=== PATIENT | male | born 1960 | race Two or more races ===

== ENCOUNTER 2016-06-02 10:45 | Inpatient (IN) | payer MEDICARE, OTHER ==
[~2016-06-02] VITALS: Ht 167.6 cm; Wt 83.5 kg
[2016-06-02] MEDS ORDERED: IV NS 0.9% 1,000 ML BAG IV ONE (11:30)
[2016-06-02] MEDS ORDERED: MORPHINE SULFATE INJ 4 MG/ML DISP.SYRIN ONE (11:30)
[2016-06-02] MEDS ORDERED: MORPHINE SULFATE INJ 2 MG/ML DISP.SYRIN IV ONE (11:30)
[2016-06-02] MEDS ORDERED: IV NS 0.9% 1,000 ML ONE (11:30)
[2016-06-02] MEDS ORDERED: IV SET PRIMARY PUMP SET 1 EA INFUS.SET MC ONE ×3 (11:31→17:01)
[2016-06-02 11:53] LABS: BASOPHILS # (AUTO) 0.1 /CMM (0.0-0.2); BASOPHILS % (AUTO) 1.9 % (0.0-2.0); DIFF TOTAL % 100 %; EOSINOPHILS # (AUTO) 0.1 /CMM (0.0-0.7); EOSINOPHILS % (AUTO) 1.2 % (0.0-6.0); HEMATOCRIT 52 % (39-51); HEMOGLOBIN 17.3 g/dL (13.5-17.5); LYMPHOCYTES # (AUTO) 2.4 /CMM (0.8-4.8); LYMPHOCYTES % (AUTO) 31.6 % (20.0-44.0); MEAN CORPUSCULAR HEMOGLOBIN 34 PG (26.0-33.0); MEAN CORPUSCULAR HGB CONC 33 g/dl (31.0-36.0); MEAN CORPUSCULAR VOLUME 103 fL (80-96); MONOCYTES # (AUTO) 0.6 /CMM (0.1-1.30); MONOCYTES % (AUTO) 7.5 % (2.0-12.0); NEUTROPHILS # (AUTO) 4.4 /CMM (1.8-8.9); NEUTROPHILS % (AUTO) 57.8 % (43.0-81.0); PLATELET COUNT (AUTO) 174 /CMM (150-450); RED BLOOD CELL COUNT(AUTO) 5.06 MIL/uL (4.5-6.0); WHITE BLOOD COUNT (AUTO) 7.6 K/uL (4.3-11.0)
[2016-06-02 12:01] LABS: ANION GAP 12 (5-14); CARBON DIOXIDE 26 mmol/L (21-32); CHLORIDE 102 mmol/L (98-107); CREATININE 0.6 mg/dL (0.6-1.3); GFR 140 mL/min (>60); GLUCOSE 231 mg/dL (74-106); POTASSIUM 4.3 mmol/L (3.5-5.1); SODIUM SERUM 136 mmol/L (136-145); UREA NITROGEN, BLOOD 9 mg/dL (7-18)
[2016-06-02 12:06] LABS: ALANINE AMINOTRANSFERASE 39 U/L (12-78); ALBUMIN 3.2 g/dL (3.4-5.0); ASPARTATE AMINOTRANSFERASE 41 U/L (15-37); BILIRUBIN,DIRECT 0.2 mg/dL (0.0-0.2); BILIRUBIN,TOTAL 0.5 mg/dL (0.2-1.0); INDIRECT BILIRUBIN 0.3 mg/dL (0.0-1.1); TOTAL PROTEIN, SERUM 8.3 g/dL (6.4-8.2)
[2016-06-02 12:08] LABS: TROPONIN I < 0.017 ng/mL (0.00-0.056)
[2016-06-02] MEDS ORDERED: VANCOMYCIN 1 GM in IV D5W 250 ML IV ONE (12:30)
[2016-06-02] MEDS ORDERED: CEFTRIAXONE 1GM BAG (ER ONLY) 1 GM/50 ML PIGGYBACK IV ONE (12:30)
[2016-06-02] MEDS ORDERED: CEFTRIAXONE 1GM BAG (ER ONLY) 50 ML IV ONE (12:35)
[2016-06-02] MEDS ORDERED: IV SET PRIMARY 1 EA INFUS.SET MC ONE (12:35)
[2016-06-02 13:45] VITALS: BP 147/76
[2016-06-02] MEDS ORDERED: PHEN100C4 PO (13:58)
[2016-06-02] MEDS ORDERED: HYDR500C2 PO (13:58)
[2016-06-02] MEDS ORDERED: ATOR10TA PO (13:58)
[2016-06-02] MEDS ORDERED: DULO20CA PO (13:58)
[2016-06-02] MEDS ORDERED: FINA5TAB11 PO (13:58)
[2016-06-02] MEDS ORDERED: HEPA10009 SQ (13:58)
[2016-06-02] MEDS ORDERED: LIDO5JEL4 TP (13:58)
[2016-06-02] MEDS ORDERED: LEVE500T6 PO (13:58)
[2016-06-02] MEDS ORDERED: INSU100V13 SQ (13:58)
[2016-06-02] MEDS ORDERED: INSU100V3 SQ ×2 (13:58)
[2016-06-02] MEDS ORDERED: DEXT15DR6 EACHEYE (13:58)
[2016-06-02] MEDS ORDERED: METO25TA6 PO (14:07)
[2016-06-02] MEDS ORDERED: HYDR-3326 PO (14:07)
[2016-06-02] MEDS ORDERED: MULT-1119 PO (14:07)
[2016-06-02] MEDS ORDERED: GEMF600T PO (14:07)
[2016-06-02] MEDS ORDERED: GABA800T PO (14:07)
[2016-06-02] MEDS ORDERED: MELA3TAB PO (14:07)
[2016-06-02] MEDS ORDERED: OMEP20CA10 PO (14:18)
[2016-06-02] MEDS ORDERED: ACET-73 PO (14:18)
[2016-06-02] MEDS ORDERED: ASCO-340 PO (14:18)
[2016-06-02] MEDS ORDERED: HYDR-552 PO (14:18)
[2016-06-02] MEDS ORDERED: AMLO10TA4 PO (14:18)
[2016-06-02] MEDS ORDERED: OLOP5DRO9 EACHEYE (14:18)
[2016-06-02] MEDS ORDERED: CALC1TAB30 PO (14:18)
[2016-06-02 16:00] VITALS: BP 148/79
[2016-06-02] MEDS ORDERED: MAGNESIUM HYDROXIDE 30 ML UDC PO PRN (16:30)
[2016-06-02] MEDS ORDERED: ZOLPIDEM TARTRATE 5 MG TABLET PO PRN (16:30)
[2016-06-02] MEDS ORDERED: ONDANSETRON HCL/PF 4 MG/2 ML VIAL IVP PRN (16:30)
[2016-06-02] MEDS ORDERED: MAG HYDROX/AL HYDROX/SIMETH 30 ML UDC PO PRN (16:30)
[2016-06-02] MEDS ORDERED: HYDROCODONE/APAP 5/325MG 1 EACH TABLET PO PRN ×2 (16:30)
[2016-06-02] MEDS ORDERED: Z GUARD REMEDY 2 OZ OINT TP PRN (16:30)
[2016-06-02] MEDS ORDERED: GEMFIBROZIL 600 MG TABLET PO SCH (16:30)
[2016-06-02] MEDS ORDERED: Medication Not On Formulary EA (Omeprazole 20 MG) PO SCH (16:30)
[2016-06-02] MEDS ORDERED: ACETAMINOPHEN 325 MG TABLET PO PRN (16:30)
[2016-06-02] MEDS ORDERED: POLYVINYL ALCOHOL 15 ML BOTTLE EACHEYE SCH (17:00)
[2016-06-02] MEDS: METOPROLOL TARTRATE 25 MG TABLET PO SCH (17:14)
[2016-06-02] MEDS: ASCORBIC ACID 500 MG TABLET PO SCH (17:14)
[2016-06-02] MEDS: GABAPENTIN 400 MG CAPSULE PO SCH (17:15)
[2016-06-02] MEDS: PHENYTOIN EXTENDED RELEASE 100 MG CAPSULE PO SCH (17:15)
[2016-06-02] MEDS: PANTOPRAZOLE 40 MG TABLET.DR PO SCH (17:19)
[2016-06-02] MEDS: DULOXETINE HCL 20 MG CAPSULE.DR PO SCH (17:19)
[2016-06-02] MEDS: HYDROXYUREA 500 MG CAPSULE PO SCH (17:19)
[2016-06-02] MEDS: FINASTERIDE (5 MG) 5 MG TABLET PO SCH (17:19)
[2016-06-02] MEDS: ATORVASTATIN 10 MG TABLET PO SCH (17:19)
[2016-06-02] MEDS: IV NS 0.9% 1,000 ML IV PRN (17:20)
[2016-06-02] MEDS: AMLODIPINE BESYLATE 10 MG TABLET PO SCH (17:20)
[2016-06-02] MEDS ORDERED: DEXTROSE 50%-WATER 50 ML DISP.SYRIN IV PRN (17:30)
[2016-06-02] MEDS: INSULIN REGULAR, HUMAN 100 UNIT/ML 3 ML VIAL SQ PRN ×2 (18:23→23:05)
[2016-06-02] MEDS: BLOOD SUGAR DIAGNOSTIC 1 EACH STRIP IN SCH ×2 (18:28→22:57)
[2016-06-02] MEDS: POLYVINYL ALCOHOL 15 ML BOTTLE EACHEYE SCH (19:16)
[2016-06-02 20:00] VITALS: BP 108/70
[2016-06-02] MEDS ORDERED: Melatonin 3 MG PO SCH (22:00)
[2016-06-02] MEDS: OLOPATADINE HCL 0.1% OPHTH BOTTLE EACHEYE SCH (22:13)
[2016-06-02] MEDS: HYDROCODONE/APAP 5/325MG 1 EACH TABLET PO SCH (22:13)
[2016-06-02] MEDS: LEVETIRACETAM (250 MG) 250 MG TABLET PO SCH (22:13)
[2016-06-02] MEDS: HEPARIN SODIUM, PORCINE 5000 UNITS/1 ML VIAL SQ SCH (22:14)
[2016-06-02] MEDS: INSULIN DETEMIR 100 UNIT/ML CARTRIDGE SQ SCH (23:03)
[2016-06-03] VITALS (9 sets, daily range): BP systolic 112–161; BP diastolic 74–100
[2016-06-03] MEDS ORDERED: PIPERACILLIN /TAZOBACTAM 2.25 G VIAL IV ONE (00:08)
[2016-06-03] MEDS ORDERED: IV D5W 50 ML IV ONE (00:09)
[2016-06-03] MEDS ORDERED: SECONDARY IV SET 1 EA INFUS.SET MC ONE (00:12)
[2016-06-03] MEDS: PIPERACILLIN /TAZOBACTAM 4.5 G in IV D5W 50 ML IV SCH ×5 (00:22→17:47)
[2016-06-03] MEDS: *INSULIN REGULAR(HUMULIN R)HUM 100 UNIT/ML VIAL SQ PRN ×2 (00:44→21:42)
[2016-06-03] MEDS: BLOOD SUGAR DIAGNOSTIC 1 EACH STRIP IN SCH ×4 (06:08→21:46)
[2016-06-03] MEDS: LEVETIRACETAM (250 MG) 250 MG TABLET PO SCH ×3 (06:09→21:26)
[2016-06-03] MEDS: INSULIN REGULAR, HUMAN 100 UNIT/ML 3 ML VIAL SQ PRN ×3 (06:36→17:49)
[2016-06-03 07:48] LABS: BILIRUBIN,TOTAL 0.4 mg/dL (0.2-1.0); CALCIUM, SERUM 8.2 mg/dL (8.5-10.1); CREATININE 0.5 mg/dL (0.6-1.3); PHOSPHORUS 2.9 mg/dL (2.5-4.9); POTASSIUM 3.9 mmol/L (3.5-5.1); TOTAL PROTEIN, SERUM 7.8 g/dL (6.4-8.2)
[2016-06-03 08:03] LABS: BASOPHILS % (AUTO) 0.3 % (0.0-2.0); DIFF TOTAL % 100 %; EOSINOPHILS # (AUTO) 0.1 /CMM (0.0-0.7); EOSINOPHILS % (AUTO) 1.8 % (0.0-6.0); HEMATOCRIT 51 % (39-51); HEMOGLOBIN 17.3 g/dL (13.5-17.5); LYMPHOCYTES # (AUTO) 1.5 /CMM (0.8-4.8); LYMPHOCYTES % (AUTO) 24.1 % (20.0-44.0); MEAN CORPUSCULAR HEMOGLOBIN 34 PG (26.0-33.0); MEAN CORPUSCULAR HGB CONC 34 g/dl (31.0-36.0); MEAN CORPUSCULAR VOLUME 101 fL (80-96); MONOCYTES # (AUTO) 0.5 /CMM (0.1-1.30); MONOCYTES % (AUTO) 7.9 % (2.0-12.0); NEUTROPHILS # (AUTO) 4.2 /CMM (1.8-8.9); NEUTROPHILS % (AUTO) 65.9 % (43.0-81.0); PLATELET COUNT (AUTO) 165 /CMM (150-450); RED BLOOD CELL COUNT(AUTO) 5.04 MIL/uL (4.5-6.0); WHITE BLOOD COUNT (AUTO) 6.3 K/uL (4.3-11.0)
[2016-06-03] MEDS ORDERED: FENTANYL PF 250MCG/5ML AMPUL ONE (08:40)
[2016-06-03] MEDS ORDERED: ROCURONIUM BROMIDE 50 MG/5 ML ONE (08:41)
[2016-06-03] MEDS ORDERED: CT SWABBABLE VALVE TRANS SET 1 EA INFUS.SET MC ONE (08:43)
[2016-06-03] MEDS ORDERED: IV NS 0.9% 250 ML IV ONE (08:43)
[2016-06-03] MEDS ORDERED: IOHEXOL-300 100 ML VIAL IV ONE (08:44)
[2016-06-03] MEDS: HEPARIN SODIUM, PORCINE 5000 UNITS/1 ML VIAL SQ SCH ×2 (09:00→21:00)
[2016-06-03] MEDS: MULTIVITAMINS,THERAPEUTIC 1 UDTAB TABLET PO SCH (10:40)
[2016-06-03] MEDS: METOPROLOL TARTRATE 25 MG TABLET PO SCH ×2 (10:41→16:28)
[2016-06-03] MEDS: FINASTERIDE (5 MG) 5 MG TABLET PO SCH (10:41)
[2016-06-03] MEDS: ATORVASTATIN 10 MG TABLET PO SCH (10:41)
[2016-06-03] MEDS: ASCORBIC ACID 500 MG TABLET PO SCH ×2 (10:42→16:27)
[2016-06-03] MEDS: PANTOPRAZOLE 40 MG TABLET.DR PO SCH (10:42)
[2016-06-03] MEDS: CALCIUM CARB 250MG /VITAMIN D 1 UDTAB PO SCH (10:42)
[2016-06-03] MEDS: GABAPENTIN 400 MG CAPSULE PO SCH ×3 (10:42→16:27)
[2016-06-03] MEDS: HYDROXYUREA 500 MG CAPSULE PO SCH (10:42)
[2016-06-03] MEDS: DULOXETINE HCL 20 MG CAPSULE.DR PO SCH (10:42)
[2016-06-03] MEDS: HYDROCODONE/APAP 5/325MG 1 EACH TABLET PO SCH ×2 (10:43→21:27)
[2016-06-03] MEDS: PHENYTOIN EXTENDED RELEASE 100 MG CAPSULE PO SCH ×2 (10:43→16:27)
[2016-06-03] MEDS: AMLODIPINE BESYLATE 10 MG TABLET PO SCH (10:43)
[2016-06-03] MEDS: POLYVINYL ALCOHOL 15 ML BOTTLE EACHEYE SCH ×2 (11:11→16:27)
[2016-06-03] MEDS: IV NS 0.9% 1,000 ML IV PRN (16:23)
[2016-06-03] MEDS: OLOPATADINE HCL 0.1% OPHTH BOTTLE EACHEYE SCH (21:28)
[2016-06-03] MEDS: INSULIN DETEMIR 100 UNIT/ML CARTRIDGE SQ SCH (21:41)
[2016-06-04] MEDS: PIPERACILLIN /TAZOBACTAM 4.5 G in IV D5W 50 ML IV SCH ×5 (00:04→23:35)
[2016-06-04 00:06] VITALS: BP 143/75
[2016-06-04] MEDS: LEVETIRACETAM (250 MG) 250 MG TABLET PO SCH ×3 (05:06→21:42)
[2016-06-04] MEDS: IV NS 0.9% 1,000 ML IV PRN ×2 (05:07→21:49)
[2016-06-04] MEDS: INSULIN REGULAR, HUMAN 100 UNIT/ML 3 ML VIAL SQ PRN ×3 (06:26→18:34)
[2016-06-04] MEDS: BLOOD SUGAR DIAGNOSTIC 1 EACH STRIP IN SCH ×5 (06:28→21:44)
[2016-06-04 08:00] VITALS: BP 142/78
[2016-06-04] MEDS: PANTOPRAZOLE 40 MG TABLET.DR PO SCH (08:05)
[2016-06-04] MEDS: HEPARIN SODIUM, PORCINE 5000 UNITS/1 ML VIAL SQ SCH ×2 (09:00→21:00)
[2016-06-04] MEDS: ASCORBIC ACID 500 MG TABLET PO SCH ×2 (10:15→17:16)
[2016-06-04] MEDS: DULOXETINE HCL 20 MG CAPSULE.DR PO SCH (10:15)
[2016-06-04] MEDS: ATORVASTATIN 10 MG TABLET PO SCH (10:15)
[2016-06-04] MEDS: FINASTERIDE (5 MG) 5 MG TABLET PO SCH (10:15)
[2016-06-04] MEDS: MULTIVITAMINS,THERAPEUTIC 1 UDTAB TABLET PO SCH (10:15)
[2016-06-04] MEDS: CALCIUM CARB 250MG /VITAMIN D 1 UDTAB PO SCH (10:15)
[2016-06-04] MEDS: METOPROLOL TARTRATE 25 MG TABLET PO SCH ×2 (10:16→17:16)
[2016-06-04] MEDS: PHENYTOIN EXTENDED RELEASE 100 MG CAPSULE PO SCH ×2 (10:16→17:16)
[2016-06-04] MEDS: HYDROXYUREA 500 MG CAPSULE PO SCH (10:16)
[2016-06-04] MEDS: GABAPENTIN 400 MG CAPSULE PO SCH ×3 (10:16→17:16)
[2016-06-04] MEDS: POLYVINYL ALCOHOL 15 ML BOTTLE EACHEYE SCH ×2 (10:17→18:05)
[2016-06-04] MEDS: HYDROCODONE/APAP 5/325MG 1 EACH TABLET PO SCH ×2 (10:17→21:42)
[2016-06-04] MEDS: AMLODIPINE BESYLATE 10 MG TABLET PO SCH (10:17)
[2016-06-04] MEDS ORDERED: IV SET PRIMARY PUMP SET 1 EA INFUS.SET MC ONE (14:03)
[2016-06-04 16:00] VITALS: BP 119/70
[2016-06-04] MEDS ORDERED: DEXTROSE 50%-WATER 50 ML DISP.SYRIN IV PRN (17:30)
[2016-06-04] MEDS ORDERED: *INSULIN REGULAR(HUMULIN R)HUM 100 UNIT/ML VIAL SQ PRN (17:30)
[2016-06-04] MEDS: OLOPATADINE HCL 0.1% OPHTH BOTTLE EACHEYE SCH (21:44)
[2016-06-04] MEDS: INSULIN DETEMIR 100 UNIT/ML CARTRIDGE SQ SCH (21:45)
[2016-06-04 22:40] VITALS: BP 136/81
[2016-06-05] MEDS: LEVETIRACETAM (250 MG) 250 MG TABLET PO SCH (05:02)
[2016-06-05] MEDS: PIPERACILLIN /TAZOBACTAM 4.5 G in IV D5W 50 ML IV SCH (05:08)
[2016-06-05] MEDS: BLOOD SUGAR DIAGNOSTIC 1 EACH STRIP IN SCH (05:45)
[2016-06-05] MEDS: INSULIN REGULAR, HUMAN 100 UNIT/ML 3 ML VIAL SQ PRN (05:48)
[2016-06-05 08:00] VITALS: BP 155/86
[2016-06-05] MEDS: ASCORBIC ACID 500 MG TABLET PO SCH (08:14)
[2016-06-05] MEDS: PHENYTOIN EXTENDED RELEASE 100 MG CAPSULE PO SCH (08:14)
[2016-06-05] MEDS: DULOXETINE HCL 20 MG CAPSULE.DR PO SCH (08:15)
[2016-06-05] MEDS: MULTIVITAMINS,THERAPEUTIC 1 UDTAB TABLET PO SCH (08:15)
[2016-06-05] MEDS: CALCIUM CARB 250MG /VITAMIN D 1 UDTAB PO SCH (08:15)
[2016-06-05] MEDS: ATORVASTATIN 10 MG TABLET PO SCH (08:15)
[2016-06-05] MEDS: HYDROXYUREA 500 MG CAPSULE PO SCH (08:16)
[2016-06-05] MEDS: GABAPENTIN 400 MG CAPSULE PO SCH (08:16)
[2016-06-05] MEDS: HYDROCODONE/APAP 5/325MG 1 EACH TABLET PO SCH (08:16)
[2016-06-05] MEDS: FINASTERIDE (5 MG) 5 MG TABLET PO SCH (08:17)
[2016-06-05] MEDS: METOPROLOL TARTRATE 25 MG TABLET PO SCH (08:17)
[2016-06-05 08:18] VITALS: BP 138/86
[2016-06-05] MEDS: AMLODIPINE BESYLATE 10 MG TABLET PO SCH (08:18)
[2016-06-05] MEDS: PANTOPRAZOLE 40 MG TABLET.DR PO SCH (08:26)
[2016-06-05] MEDS: HEPARIN SODIUM, PORCINE 5000 UNITS/1 ML VIAL SQ SCH (08:29)
[2016-06-05] MEDS: POLYVINYL ALCOHOL 15 ML BOTTLE EACHEYE SCH (08:30)
[2016-06-06] MEDS ORDERED: PANT40TA2 PO (12:18)
[2016-06-06] MEDS ORDERED: ACET-868 PO (12:18)
[2016-06-06] MEDS ORDERED: SULF1TAB48 PO (12:18)
[2016-06-06] MEDS ORDERED: ZOLP5TAB7 PO (12:18)
== END 2016-06-05 13:40 | DRG 603 ==
LOC: ER 10:47 → MED 13:04 → TELE 16:42 → MED 22:09
PROVIDERS: ADMIT Internal Medicine; ATTEND Internal Medicine
DX: L03.116 Cellulitis of left lower limb (principal); G82.20 Paraplegia, unspecified; D68.59 Other primary thrombophilia; E87.1 Hypo-osmolality and hyponatremia; I50.32 Chronic diastolic (congestive) heart failure; E78.5 Hyperlipidemia, unspecified; N40.0 Benign prostatic hyperplasia without lower urinary tract symptoms; E11.65 Type 2 diabetes mellitus with hyperglycemia; I25.10 Atherosclerotic heart disease of native coronary artery without angina pectoris; D64.9 Anemia, unspecified; D69.2 Other nonthrombocytopenic purpura; E78.1 Pure hyperglyceridemia; G40.909 Epilepsy, unspecified, not intractable, without status epilepticus; Z86.73 Personal history of transient ischemic attack (TIA), and cerebral infarction without residual deficits; V89.2XXS Person injured in unspecified motor-vehicle accident, traffic, sequela; I11.0 Hypertensive heart disease with heart failure; R74.0 Nonspecific elevation of levels of transaminase and lactic acid dehydrogenase [LDH]; E11.51 Type 2 diabetes mellitus with diabetic peripheral angiopathy without gangrene; M24.562 Contracture, left knee; M24.571 Contracture, right ankle; M24.572 Contracture, left ankle; R23.4 Changes in skin texture; S81.002A Unspecified open wound, left knee, initial encounter; X58.XXXA Exposure to other specified factors, initial encounter; Y93.9 Activity, unspecified; Y92.89 Other specified places as the place of occurrence of the external cause; Y99.9 Unspecified external cause status; M62.562 Muscle wasting and atrophy, not elsewhere classified, left lower leg; L02.416 Cutaneous abscess of left lower limb
CPT/HCPCS: 36415; 73701-TC; 74000-TC; 80048-TC; 80053-TC; 80061-TC; 80076-TC; 82962-TC; 83690-TC; 83735-TC; 84100-TC; 84484-TC; 85025-TC; 87040-TC; 87081-TC; A4606; J0696; J1644; J1815; J2270; J2405; J2543; J3010; J3370; J7030; J7050; J7060; Q9967; Z7610

== ENCOUNTER 2016-06-06 10:58 | Inpatient (IN) | payer MEDICARE, OTHER ==
[~2016-06-06] VITALS: Ht 154.9 cm; Wt 81.2 kg
[~2016-06-06 10:58] MED LIST: ACET-73 PO; AMLO10TA4 PO; ASCO-340 PO; ATOR10TA PO; CALC1TAB30 PO; DEXT15DR6 EACHEYE; DULO20CA PO; FINA5TAB11 PO; GABA800T PO; GEMF600T PO; HEPA10009 SQ; HYDR-3326 PO; HYDR-552 PO; HYDR500C2 PO; INSU100V13 SQ; INSU100V3 SQ; LEVE500T6 PO; LIDO5JEL4 TP; MELA3TAB PO; METO25TA6 PO; MULT-1119 PO; OLOP5DRO9 EACHEYE; OMEP20CA10 PO; PHEN100C4 PO
[2016-06-06] MEDS ORDERED: LORAZEPAM 1 MG TABLET ONE (11:16)
[2016-06-06] MEDS ORDERED: ONDANSETRON 4 MG TAB.RAPDIS ONE (11:22)
[2016-06-06] MEDS ORDERED: LORAZEPAM 1 MG TABLET PO ONE (11:30)
[2016-06-06] MEDS ORDERED: ONDANSETRON 4 MG TAB.RAPDIS SL ONE (11:30)
[2016-06-06] MEDS ORDERED: ONDANSETRON HCL/PF 4 MG/2 ML VIAL ONE (11:43)
[2016-06-06] MEDS ORDERED: IV NS 0.9% 1,000 ML ONE (11:59)
[2016-06-06] MEDS ORDERED: IV SET PRIMARY 1 EA INFUS.SET MC ONE (11:59)
[2016-06-06] MEDS ORDERED: IV NS 0.9% 1,000 ML BAG IV ONE (12:00)
[2016-06-06] MEDS ORDERED: ONDANSETRON HCL/PF 4 MG/2 ML VIAL IVP ONE (12:00)
[2016-06-06 12:13] LABS: DIFF TOTAL % 100 %; EOSINOPHILS % (AUTO) 0.4 % (0.0-6.0); HEMATOCRIT 55 % (39-51); HEMOGLOBIN 18.5 g/dL (13.5-17.5); LYMPHOCYTES # (AUTO) 0.8 /CMM (0.8-4.8); LYMPHOCYTES % (AUTO) 9.4 % (20.0-44.0); MEAN CORPUSCULAR HEMOGLOBIN 34 PG (26.0-33.0); MEAN CORPUSCULAR HGB CONC 34 g/dl (31.0-36.0); MEAN CORPUSCULAR VOLUME 100 fL (80-96); MONOCYTES # (AUTO) 0.2 /CMM (0.1-1.30); MONOCYTES % (AUTO) 2.2 % (2.0-12.0); NEUTROPHILS # (AUTO) 7.8 /CMM (1.8-8.9); PLATELET COUNT (AUTO) 165 /CMM (150-450); RED BLOOD CELL COUNT(AUTO) 5.43 MIL/uL (4.5-6.0); WHITE BLOOD COUNT (AUTO) 8.9 K/uL (4.3-11.0)
[2016-06-06] MEDS ORDERED: SULF1TAB48 PO (12:18)
[2016-06-06] MEDS ORDERED: ACET-868 PO (12:18)
[2016-06-06] MEDS ORDERED: ZOLP5TAB7 PO (12:18)
[2016-06-06] MEDS ORDERED: PANT40TA2 PO (12:18)
[2016-06-06] MEDS ORDERED: LORAZEPAM INJ 2 MG/ML VIAL IV ONE (12:30)
[2016-06-06] MEDS ORDERED: LORAZEPAM INJ 2 MG/ML VIAL ONE (12:34)
[2016-06-06 12:36] LABS: TROPONIN I < 0.017 ng/mL (0.00-0.056)
[2016-06-06 12:38] LABS: ANION GAP 19 (5-14); CALCIUM, SERUM 8.9 mg/dL (8.5-10.1); CARBON DIOXIDE 21 mmol/L (21-32); CHLORIDE 99 mmol/L (98-107); CREATININE 0.7 mg/dL (0.6-1.3); GFR 117 mL/min (>60); GLUCOSE 343 mg/dL (74-106); POTASSIUM 3.6 mmol/L (3.5-5.1); SODIUM SERUM 135 mmol/L (136-145); UREA NITROGEN, BLOOD 9 mg/dL (7-18)
[2016-06-06 12:42] LABS: ALANINE AMINOTRANSFERASE 45 U/L (12-78); ALBUMIN 3.2 g/dL (3.4-5.0); ASPARTATE AMINOTRANSFERASE 49 U/L (15-37); BILIRUBIN,DIRECT 0.2 mg/dL (0.0-0.2); BILIRUBIN,TOTAL 0.5 mg/dL (0.2-1.0); INDIRECT BILIRUBIN 0.3 mg/dL (0.0-1.1); TOTAL PROTEIN, SERUM 8.5 g/dL (6.4-8.2)
[2016-06-06 14:20] VITALS: BP 138/74
[2016-06-06 16:00] VITALS: BP 141/85
[2016-06-06] MEDS ORDERED: Z GUARD REMEDY 2 OZ OINT TP PRN (16:30)
[2016-06-06] MEDS ORDERED: ACETAMINOPHEN 325 MG TABLET PO PRN (16:30)
[2016-06-06] MEDS ORDERED: HYDROCODONE/APAP 5/325MG 1 EACH TABLET PO PRN ×2 (16:30)
[2016-06-06] MEDS ORDERED: DEXTROSE 50%-WATER 50 ML DISP.SYRIN IV PRN (16:30)
[2016-06-06] MEDS ORDERED: ZOLPIDEM TARTRATE 5 MG TABLET PO PRN ×2 (16:30)
[2016-06-06] MEDS ORDERED: ONDANSETRON HCL/PF 4 MG/2 ML VIAL IVP PRN (16:30)
[2016-06-06] MEDS ORDERED: MAGNESIUM HYDROXIDE 30 ML UDC PO PRN (16:30)
[2016-06-06] MEDS ORDERED: MAG HYDROX/AL HYDROX/SIMETH 30 ML UDC PO PRN (16:30)
[2016-06-06] MEDS: METOPROLOL TARTRATE 25 MG TABLET PO SCH (17:51)
[2016-06-06] MEDS: INSULIN REGULAR, HUMAN 100 UNIT/ML 3 ML VIAL SQ PRN (17:52)
[2016-06-06] MEDS: BLOOD SUGAR DIAGNOSTIC 1 EACH STRIP VI SCH ×2 (17:53→22:03)
[2016-06-06] MEDS ORDERED: LORAZEPAM INJ 2 MG/ML VIAL IV PRN (18:00)
[2016-06-06] MEDS: HYDROCODONE/APAP 5/325MG 1 EACH TABLET PO PRN (18:19)
[2016-06-06 20:00] VITALS: BP 126/80
[2016-06-06] MEDS: HEPARIN SODIUM, PORCINE 5000 UNITS/1 ML VIAL SQ SCH (21:28)
[2016-06-06] MEDS: POLYVINYL ALCOHOL 15 ML BOTTLE OP SCH (21:29)
[2016-06-06] MEDS: LEVETIRACETAM (250 MG) 250 MG TABLET PO SCH (21:29)
[2016-06-06] MEDS: GABAPENTIN 400 MG CAPSULE PO SCH (21:29)
[2016-06-06] MEDS: INSULIN DETEMIR 100 UNIT/ML CARTRIDGE SQ SCH (21:58)
[2016-06-06] MEDS ORDERED: INSULIN GLARGINE HUM REC ANLOG 54 UNIT SQ SCH (22:00)
[2016-06-07] VITALS: BP 114/76
[2016-06-07] MEDS: HYDROCODONE/APAP 5/325MG 1 EACH TABLET PO PRN (03:44)
[2016-06-07 04:00] VITALS: BP 142/79
[2016-06-07] MEDS: LEVETIRACETAM (250 MG) 250 MG TABLET PO SCH ×3 (05:19→21:24)
[2016-06-07] MEDS: GABAPENTIN 400 MG CAPSULE PO SCH ×3 (05:19→21:24)
[2016-06-07] MEDS: INSULIN REGULAR, HUMAN 100 UNIT/ML 3 ML VIAL SQ PRN ×3 (05:56→17:33)
[2016-06-07] MEDS: BLOOD SUGAR DIAGNOSTIC 1 EACH STRIP VI SCH ×4 (06:18→21:23)
[2016-06-07 08:00] VITALS: BP 135/69
[2016-06-07] MEDS: MULTIVITAMINS,THERAPEUTIC 1 UDTAB TABLET PO SCH (08:54)
[2016-06-07] MEDS: HYDROXYUREA 500 MG CAPSULE PO SCH (08:54)
[2016-06-07] MEDS: ASCORBIC ACID 500 MG TABLET PO SCH ×2 (08:54→16:43)
[2016-06-07] MEDS: PANTOPRAZOLE 40 MG TABLET.DR PO SCH (08:55)
[2016-06-07] MEDS: ATORVASTATIN 10 MG TABLET PO SCH (08:55)
[2016-06-07] MEDS: FINASTERIDE (5 MG) 5 MG TABLET PO SCH (08:55)
[2016-06-07] MEDS: METOPROLOL TARTRATE 25 MG TABLET PO SCH ×2 (08:55→16:43)
[2016-06-07] MEDS: DULOXETINE HCL 20 MG CAPSULE.DR PO SCH (08:55)
[2016-06-07] MEDS: AMLODIPINE BESYLATE 10 MG TABLET PO SCH (08:55)
[2016-06-07] MEDS ORDERED: PANTOPRAZOLE 40 MG TABLET.DR PO SCH (09:00)
[2016-06-07] MEDS: POLYVINYL ALCOHOL 15 ML BOTTLE OP SCH ×2 (09:01→16:43)
[2016-06-07] MEDS: HEPARIN SODIUM, PORCINE 5000 UNITS/1 ML VIAL SQ SCH ×2 (09:01→21:25)
[2016-06-07 10:50] LABS: BASOPHILS % (AUTO) 0.3 % (0.0-2.0); DIFF TOTAL % 100 %; EOSINOPHILS # (AUTO) 0.1 /CMM (0.0-0.7); EOSINOPHILS % (AUTO) 1.5 % (0.0-6.0); HEMATOCRIT 49 % (39-51); HEMOGLOBIN 16.8 g/dL (13.5-17.5); LYMPHOCYTES # (AUTO) 1.7 /CMM (0.8-4.8); LYMPHOCYTES % (AUTO) 20.6 % (20.0-44.0); MEAN CORPUSCULAR HEMOGLOBIN 34 PG (26.0-33.0); MEAN CORPUSCULAR HGB CONC 34 g/dl (31.0-36.0); MEAN CORPUSCULAR VOLUME 101 fL (80-96); MONOCYTES # (AUTO) 0.6 /CMM (0.1-1.30); MONOCYTES % (AUTO) 7.6 % (2.0-12.0); NEUTROPHILS # (AUTO) 5.9 /CMM (1.8-8.9); PLATELET COUNT (AUTO) 157 /CMM (150-450); RED BLOOD CELL COUNT(AUTO) 4.89 MIL/uL (4.5-6.0); WHITE BLOOD COUNT (AUTO) 8.4 K/uL (4.3-11.0)
[2016-06-07 11:03] LABS: CALCIUM, SERUM 8.6 mg/dL (8.5-10.1); CREATININE 0.6 mg/dL (0.6-1.3); POTASSIUM 3.4 mmol/L (3.5-5.1)
[2016-06-07] MEDS: PHENYTOIN EXTENDED RELEASE 100 MG CAPSULE PO SCH ×2 (15:26→21:24)
[2016-06-07 16:00] VITALS: BP 134/72
[2016-06-07] MEDS ORDERED: POTASSIUM CHLORIDE 20 MEQ TAB.PRT.SR PO ONE (16:00)
[2016-06-07] MEDS: Z GUARD REMEDY 2 OZ OINT TP SCH (16:44)
[2016-06-07] MEDS ORDERED: phenytoin SODIUM IV 1,000 MG in IV NS 0.9% 100 ML IV STA (18:06)
[2016-06-07] MEDS ORDERED: IV SET PRIMARY PUMP SET 1 EA INFUS.SET MC ONE ×2 (18:31→19:29)
[2016-06-07] MEDS ORDERED: SECONDARY IV SET 1 EA INFUS.SET MC ONE (18:34)
[2016-06-07] MEDS ORDERED: IV NS 0.9% 0 ML IV ONE (18:34)
[2016-06-07] MEDS ORDERED: IV NS 0.9% 250 ML IV ONE (19:15)
[2016-06-07 20:00] VITALS: BP 127/69
[2016-06-07 20:02] VITALS: BP 127/69
[2016-06-07] MEDS ORDERED: PHENYTOIN EXTENDED RELEASE 100 MG CAPSULE PO ONE (20:30)
[2016-06-07] MEDS: *INSULIN REGULAR(HUMULIN R)HUM 100 UNIT/ML VIAL SQ PRN (21:37)
[2016-06-07] MEDS: INSULIN DETEMIR 100 UNIT/ML CARTRIDGE SQ SCH (21:38)
[2016-06-08] MEDS: LEVETIRACETAM (250 MG) 250 MG TABLET PO SCH ×3 (04:47→21:14)
[2016-06-08] MEDS: GABAPENTIN 400 MG CAPSULE PO SCH ×3 (04:47→21:14)
[2016-06-08] MEDS: BLOOD SUGAR DIAGNOSTIC 1 EACH STRIP VI SCH ×4 (06:26→21:25)
[2016-06-08] MEDS: INSULIN REGULAR, HUMAN 100 UNIT/ML 3 ML VIAL SQ PRN ×2 (06:33→12:11)
[2016-06-08 08:00] VITALS: BP 137/83
[2016-06-08 08:08] LABS: CALCIUM, SERUM 8.3 mg/dL (8.5-10.1); CREATININE 0.5 mg/dL (0.6-1.3); POTASSIUM 3.7 mmol/L (3.5-5.1)
[2016-06-08] MEDS: PANTOPRAZOLE 40 MG TABLET.DR PO SCH (08:14)
[2016-06-08] MEDS: POLYVINYL ALCOHOL 15 ML BOTTLE OP SCH ×2 (08:14→16:56)
[2016-06-08] MEDS: HYDROXYUREA 500 MG CAPSULE PO SCH (08:14)
[2016-06-08] MEDS: FINASTERIDE (5 MG) 5 MG TABLET PO SCH (08:14)
[2016-06-08] MEDS: PHENYTOIN EXTENDED RELEASE 100 MG CAPSULE PO SCH ×2 (08:14→21:14)
[2016-06-08] MEDS: MULTIVITAMINS,THERAPEUTIC 1 UDTAB TABLET PO SCH (08:15)
[2016-06-08] MEDS: METOPROLOL TARTRATE 25 MG TABLET PO SCH ×2 (08:15→16:55)
[2016-06-08] MEDS: ASCORBIC ACID 500 MG TABLET PO SCH ×2 (08:15→16:55)
[2016-06-08] MEDS: AMLODIPINE BESYLATE 10 MG TABLET PO SCH (08:16)
[2016-06-08] MEDS: DULOXETINE HCL 20 MG CAPSULE.DR PO SCH (08:16)
[2016-06-08] MEDS: HEPARIN SODIUM, PORCINE 5000 UNITS/1 ML VIAL SQ SCH ×2 (08:17→21:15)
[2016-06-08] MEDS: ATORVASTATIN 10 MG TABLET PO SCH (08:17)
[2016-06-08] MEDS: Z GUARD REMEDY 2 OZ OINT TP SCH ×2 (08:18→16:55)
[2016-06-08 16:00] VITALS: BP 148/77
[2016-06-08] MEDS: INSULIN REGULAR, HUMAN 100 UNIT/ML 3 ML VIAL SQ SCH (16:57)
[2016-06-08 20:00] VITALS: BP 142/87
[2016-06-08 20:02] VITALS: BP 142/87
[2016-06-08] MEDS: INSULIN DETEMIR 100 UNIT/ML CARTRIDGE SQ SCH (21:30)
[2016-06-08] MEDS: *INSULIN REGULAR(HUMULIN R)HUM 100 UNIT/ML VIAL SQ PRN (21:31)
[2016-06-09] MEDS: GABAPENTIN 400 MG CAPSULE PO SCH ×3 (04:21→22:13)
[2016-06-09] MEDS: LEVETIRACETAM (250 MG) 250 MG TABLET PO SCH ×3 (04:21→22:13)
[2016-06-09] MEDS: INSULIN REGULAR, HUMAN 100 UNIT/ML 3 ML VIAL SQ PRN ×3 (06:28→17:40)
[2016-06-09] MEDS: INSULIN REGULAR, HUMAN 100 UNIT/ML 3 ML VIAL SQ SCH ×3 (07:30→17:42)
[2016-06-09 08:00] VITALS: BP 143/87
[2016-06-09] MEDS: ATORVASTATIN 10 MG TABLET PO SCH (09:29)
[2016-06-09] MEDS: PHENYTOIN EXTENDED RELEASE 100 MG CAPSULE PO SCH ×2 (09:29→22:13)
[2016-06-09] MEDS: ASCORBIC ACID 500 MG TABLET PO SCH ×2 (09:29→17:52)
[2016-06-09] MEDS: METOPROLOL TARTRATE 25 MG TABLET PO SCH ×2 (09:30→17:53)
[2016-06-09] MEDS: PANTOPRAZOLE 40 MG TABLET.DR PO SCH (09:30)
[2016-06-09] MEDS: FINASTERIDE (5 MG) 5 MG TABLET PO SCH (09:31)
[2016-06-09] MEDS: HYDROXYUREA 500 MG CAPSULE PO SCH (09:31)
[2016-06-09] MEDS: MULTIVITAMINS,THERAPEUTIC 1 UDTAB TABLET PO SCH (09:31)
[2016-06-09] MEDS: DULOXETINE HCL 20 MG CAPSULE.DR PO SCH (09:31)
[2016-06-09] MEDS: AMLODIPINE BESYLATE 10 MG TABLET PO SCH (09:31)
[2016-06-09] MEDS: HEPARIN SODIUM, PORCINE 5000 UNITS/1 ML VIAL SQ SCH ×2 (09:32→21:00)
[2016-06-09] MEDS: BLOOD SUGAR DIAGNOSTIC 1 EACH STRIP VI SCH ×6 (09:36→22:38)
[2016-06-09] MEDS: Z GUARD REMEDY 2 OZ OINT TP SCH ×2 (09:53→17:55)
[2016-06-09] MEDS: POLYVINYL ALCOHOL 15 ML BOTTLE OP SCH ×2 (09:53→17:54)
[2016-06-09 11:24] LABS: CALCIUM, SERUM 8.7 mg/dL (8.5-10.1); CREATININE 0.6 mg/dL (0.6-1.3); POTASSIUM 3.8 mmol/L (3.5-5.1)
[2016-06-09] MEDS ORDERED: INSU100V3 SQ (15:46)
[2016-06-09] MEDS ORDERED: PHEN100C4 PO (15:46)
[2016-06-09 16:00] VITALS: BP 145/78
[2016-06-09 20:00] VITALS: BP 148/89
[2016-06-09] MEDS: HYDROCODONE/APAP 5/325MG 1 EACH TABLET PO PRN (22:13)
[2016-06-09] MEDS: INSULIN DETEMIR 100 UNIT/ML CARTRIDGE SQ SCH (22:39)
== END 2016-06-09 23:25 | DRG 101 ==
LOC: ER 10:59 → TELE 14:27 → MED 06-07 09:51
PROVIDERS: ADMIT Internal Medicine; ATTEND Internal Medicine
DX: G40.909 Epilepsy, unspecified, not intractable, without status epilepticus (principal); G82.20 Paraplegia, unspecified; D68.59 Other primary thrombophilia; E87.1 Hypo-osmolality and hyponatremia; L03.116 Cellulitis of left lower limb; G91.9 Hydrocephalus, unspecified; I25.10 Atherosclerotic heart disease of native coronary artery without angina pectoris; E11.65 Type 2 diabetes mellitus with hyperglycemia; Z86.73 Personal history of transient ischemic attack (TIA), and cerebral infarction without residual deficits; I50.9 Heart failure, unspecified; E78.5 Hyperlipidemia, unspecified; Z98.2 Presence of cerebrospinal fluid drainage device; N40.0 Benign prostatic hyperplasia without lower urinary tract symptoms; Z90.49 Acquired absence of other specified parts of digestive tract; D69.2 Other nonthrombocytopenic purpura; E66.9 Obesity, unspecified; G93.89 Other specified disorders of brain; I73.9 Peripheral vascular disease, unspecified; M24.562 Contracture, left knee
CPT/HCPCS: 36415; 70450-TC; 71010-TC; 80048-TC; 80061-TC; 80076-TC; 80185-TC; 82962-TC; 83690-TC; 83735-TC; 84100-TC; 84484-TC; 85025-TC; 87081-TC; 94799-TC; A4606; A6403; A6407; J1165; J1644; J1815; J2060; J2405; J7030; J7050; Q0162; Z7610

== ENCOUNTER 2017-03-11 11:42 | Inpatient (IN) | payer MEDICARE, OTHER ==
[~2017-03-11] VITALS: Ht 165.1 cm; Wt 79.4 kg
[~2017-03-11 11:42] MED LIST changes: -ACET-73 PO; +ACET-868 PO; -CALC1TAB30 PO; -GEMF600T PO; -INSU100V13 SQ; +INSU100V7 SQ; -LEVE500T6 PO; +LEVE500T9 PO; -LIDO5JEL4 TP; -MELA3TAB PO; -OLOP5DRO9 EACHEYE; -OMEP20CA10 PO; +PANT40TA2 PO; +SULF1TAB48 PO; +ZOLP5TAB7 PO
--- NOTE | 2017-03-11 11:50 | NUR ---
BBPA FROM [employer]: MORE LETHARGIC OVER PAST 2 DAYS. PATIENT A/OX 4. BREATHING EVEN AND UNLABORED. NO SOB. VITALS STABLE. SAFETY AND COMFORT MEASURSE IN PLACE. AWAITING MD ORDERS.
[2017-03-11] MEDS ORDERED: IV NS 0.9% 1,000 ML BAG IV ONE (12:00)
--- NOTE | 2017-03-11 12:05 | NUR ---
NEW IV STARTED RIGHT HAND, 18 G. BLOOD DRAWN AND SENT TO LAB.
[2017-03-11 12:30] LABS: BASOPHILS # (AUTO) 0.1 /CMM (0.0-0.2); BASOPHILS % (AUTO) 0.6 % (0.0-2.0); CALCIUM, SERUM 8.9 mg/dL (8.5-10.1); CARBON DIOXIDE 28 mmol/L (21-32); CHLORIDE 102 mmol/L (98-107); CREATININE 0.5 mg/dL (0.6-1.3); EOSINOPHILS # (AUTO) 0.2 /CMM (0.0-0.7); EOSINOPHILS % (AUTO) 1.5 % (0.0-6.0); GLUCOSE 144 mg/dL (74-106); HEMATOCRIT 54 % (39-51); HEMOGLOBIN 18.2 g/dL (13.5-17.5); LYMPHOCYTES # (AUTO) 2.2 /CMM (0.8-4.8); LYMPHOCYTES % (AUTO) 18.6 % (20.0-44.0); MEAN CORPUSCULAR HEMOGLOBIN 34 PG (26.0-33.0); MEAN CORPUSCULAR HGB CONC 34 g/dl (31.0-36.0); MEAN CORPUSCULAR VOLUME 99 fL (80-96); MONOCYTES # (AUTO) 0.8 /CMM (0.1-1.30); MONOCYTES % (AUTO) 6.7 % (2.0-12.0); NEUTROPHILS # (AUTO) 8.5 /CMM (1.8-8.9); NEUTROPHILS % (AUTO) 72.6 % (43.0-81.0); PLATELET COUNT (AUTO) 165 /CMM (150-450); POTASSIUM 3.8 mmol/L (3.5-5.1); RDW COEFFICIENT OF VARIATION 13.4 (11.5-15.0); RED BLOOD CELL COUNT(AUTO) 5.44 MIL/uL (4.5-6.0); SODIUM SERUM 137 mmol/L (136-145); UREA NITROGEN, BLOOD 9 mg/dL (7-18); WHITE BLOOD COUNT (AUTO) 11.8 K/uL (4.3-11.0)
[2017-03-11 12:35] LABS: ALANINE AMINOTRANSFERASE 19 U/L (12-78); ALBUMIN 3.1 g/dL (3.4-5.0); ALKALINE PHOSPHATASE 138 U/L (46-116); ASPARTATE AMINOTRANSFERASE 18 U/L (15-37); BILIRUBIN,DIRECT 0.1 mg/dL (0.0-0.2); BILIRUBIN,TOTAL 0.4 mg/dL (0.2-1.0); TOTAL PROTEIN, SERUM 8.1 g/dL (6.4-8.2)
[2017-03-11 12:37] LABS: TROPONIN I < 0.017 ng/mL (0.00-0.056)
--- NOTE | 2017-03-11 13:12 | NUR ---
REPORT GIVEN TO RNSHRUTI FOR ADMISSION.
[2017-03-11] MEDS ORDERED: PHEN100C4 PO (13:17)
[2017-03-11] MEDS ORDERED: INSU100V3 SQ (13:17)
[2017-03-11] MEDS ORDERED: BISA10SU8 RC (13:17)
[2017-03-11] MEDS ORDERED: BENEFIBER PO (13:17)
[2017-03-11] MEDS ORDERED: MELA5TAB PO (13:17)
[2017-03-11] MEDS ORDERED: ARGI1POW13 PO (13:17)
[2017-03-11] MEDS ORDERED: MAGN400O6 PO (13:17)
[2017-03-11] MEDS ORDERED: BLOO-668 IN (13:17)
[2017-03-11] MEDS ORDERED: MULT1TAB11 PO (13:17)
[2017-03-11] MEDS ORDERED: DIPH25CA6 PO (13:17)
[2017-03-11] MEDS ORDERED: POLY15DR40 EACHEYE (13:17)
[2017-03-11] MEDS ORDERED: NA P133E RC (13:17)
[2017-03-11] MEDS ORDERED: OXYC-128 PO ×2 (13:27)
--- NOTE | 2017-03-11 13:31 | NUR ---
CALLED [employer], MANAGER TALENT ACQUISITION WAS PAGED.
--- NOTE | 2017-03-11 13:50 | NUR ---
PATIENT TAKEN TO CT VIA STRETCHER .
[2017-03-11] MEDS ORDERED: BISACODYL SUPP (10 MG) 10 MG/SUPP.RECT SUPP.RECT RC PRN (14:30)
[2017-03-11] MEDS ORDERED: diphenhydrAMINE HCL 25 MG CAPSULE PO PRN (14:30)
[2017-03-11] MEDS ORDERED: MAGNESIUM HYDROXIDE 30 ML UDC PO PRN ×2 (14:30)
[2017-03-11] MEDS ORDERED: Medication Not On Formulary EA (Melatonin 10 MG) PO PRN (14:30)
[2017-03-11] MEDS ORDERED: ACETAMINOPHEN 325 MG TABLET PO PRN ×2 (14:30)
[2017-03-11] MEDS ORDERED: Z GUARD REMEDY 2 OZ OINT TP PRN (14:30)
[2017-03-11] MEDS ORDERED: MAG HYDROX/AL HYDROX/SIMETH 30 ML UDC PO PRN (14:30)
[2017-03-11] MEDS ORDERED: ZOLPIDEM TARTRATE 5 MG TABLET PO PRN (14:30)
[2017-03-11] MEDS ORDERED: ONDANSETRON HCL/PF 4 MG/2 ML VIAL IVP PRN (14:30)
--- NOTE | 2017-03-11 14:38 | NUR ---
PATIENT TRANSFERRED TO [facility] FOR ADMISSION VIA STRETCHER. RN, SHRUTI/MIKE TO PROVIDE RACHANA.
[2017-03-11 14:43] LABS: BAND % (MANUAL) 2 % (0.0-5.0); EOSINOPHILS % (MANUAL) 4 % (0-4); LYMPHOCYTES % (MANUAL) 22 % (16-48); MONOCYTES % (MANUAL) 4 % (0-11.0); NEUTROPHILS % (MANUAL) 68 (42-76)
[2017-03-11 15:00] VITALS: BP 134/89
--- NOTE | 2017-03-11 15:00 | NUR ---
RECEIVED PT FROM ER. IN NO APPARENT DISTRESS. BEDSIDE RAILS ARE LOCKED AND LOWERED. IV IS INTACT AND PATENT. WILL CONTINUE TO MONITOR.
[2017-03-11] MEDS: INSULIN REGULAR, HUMAN 100 UNIT/ML 3 ML VIAL SQ SCH (16:44)
[2017-03-11] MEDS: BLOOD SUGAR DIAGNOSTIC 1 EACH STRIP IN SCH ×2 (16:45→21:44)
[2017-03-11] MEDS: LEVETIRACETAM (250 MG) 250 MG TABLET PO SCH ×2 (16:45→21:43)
[2017-03-11] MEDS: GABAPENTIN 400 MG CAPSULE PO SCH ×2 (16:46→21:43)
[2017-03-11] MEDS: IV 1/2NS 1000 ML 1,000 ML IV PRN (16:52)
[2017-03-11] MEDS ORDERED: Medication Not On Formulary EA (Arginine/Ascorbate Sod/Vite AC (Arginaid Powder) 1 EACH) PO SCH (17:00)
[2017-03-11] MEDS: POLYVINYL ALCOHOL 15 ML BOTTLE EACHEYE SCH (17:13)
[2017-03-11] MEDS: BENEFIBER 4 GM 1 EA PACKET PO SCH (17:14)
[2017-03-11] MEDS: METOPROLOL TARTRATE 25 MG TABLET PO SCH (17:14)
[2017-03-11] MEDS: ASCORBIC ACID 500 MG TABLET PO SCH (17:14)
--- NOTE | 2017-03-11 18:48 | NUR ---
MS RN CLOSING NOTES PT IS AWAKE AND ALERT. PT IS RESTING IN BED. BEDSIDE RAILS ARE UP X2. BED IS LOCKED AND LOWERED. WILL ENDORSE CARE TO CARGOMAN NURSE FOR RACHANA.
--- NOTE | 2017-03-11 19:35 | NUR ---
MS/RN NOTES RECEIVED PT. SITTING UP IN BED. AWAKE, ALERT AND ORIENTED X1-2. BREATHING EVEN AND UNLABORED ON ROOM AIR. NO SOB, RESPIRATORY DISTRESS OR COMPLAINTS OF PAIN NOTED AT THIS TIME. PT. WITH RIGHT FOREARM 18 GAUGE IV SALINE LOCK PRESENT. PT. IV INFILTRATED. WILL D/C IV ACCESS AND ATTEMPT TO INSERT NEW IV ACCESS. PT. WITH FAMILY MEMBER PRESENT AT BEDSIDE. BED LOCKED AND IN LOWEST POSITION, SIDE RAILS UP X3, BED ALARM ON, CALL LIGHT WITHIN REACH, WILL CONTINUE TO MONITOR.
[2017-03-11 20:00] VITALS: BP 142/74
[2017-03-11] MEDS: PHENYTOIN EXTENDED RELEASE 100 MG CAPSULE PO SCH (21:43)
[2017-03-11] MEDS: ATORVASTATIN 10 MG TABLET PO SCH (21:43)
[2017-03-11] MEDS: HEPARIN SODIUM, PORCINE 5000 UNITS/1 ML VIAL SQ SCH (21:45)
[2017-03-11] MEDS: INSULIN DETEMIR 100 UNIT/ML CARTRIDGE SQ SCH (21:46)
[2017-03-11] MEDS ORDERED: INSULIN GLARGINE HUM REC ANLOG SQ SCH (22:00)
[2017-03-11] MEDS: HYDROCODONE/APAP 5/325MG 1 EACH TABLET PO PRN (22:22)
--- NOTE | 2017-03-11 23:42 | NUR ---
MS/RN NOTES NOTIFIED [facility] TEACHER DR. HORNER PT. PREVIOUS IV INFILTRATED. PREVIOUS ATTEMPTS MADE TO INSERT IV ACCESS WERE UNSUCCESSFUL PT. IS A HARD STICK. PER DR. HORNER NEW ORDER: MIDLINE INSERTION. WILL CARRY OUT ORDER. WILL CONTINUE TO MONITOR.
--- NOTE | 2017-03-11 23:48 | NUR ---
MS/RN NOTES MIDLINE NURSE CARLA PRESENT AT BEDSIDE.
--- NOTE | 2017-03-11 23:55 | NUR ---
MS/RN NOTES PT. NOW WITH RIGHT UPPER ARM #18 MIDLINE PRESENT, PATENT AND INTACT ADMINISTERING TO PT. 1/2 NS @ 75 ML/HR.
[2017-03-12] MEDS: LEVETIRACETAM (250 MG) 250 MG TABLET PO SCH ×3 (06:09→21:07)
--- NOTE | 2017-03-12 06:18 | NUR ---
MS/RN NOTES PT. IS LYING IN BED RESTING. BREATHING EVEN AND UNLABORED ON ROOM AIR. NO SOB, RESPIRATORY DISTRESS OR COMPLAINTS OF PAIN NOTED AT THIS TIME. NO S/S OF HYPO/HYPERGLYCEMIA NOTED AT THIS TIME AND THROUGHOUT SHIFT. PT. WITH RIGHT UPPER ARM MIDLINE #18 PRESENT, PATENT AND INTACT, ADMINISTERING TO PT. 1/2 NS @ 75 ML/HR. ALL PT. NEEDS MET. ALL DUE MEDICATIONS GIVEN. PT. OFFLOADED, TURNED AND REPOSITIONED TOLERATED. BED LOCKED AND IN LOWEST POSITION, SIDE RAILS UP X3, BED ALARM ON, CALL LIGHT WITHIN REACH, WILL ENDORSE TO DAYSHIFT NURSE FOR CONTINUITY OF CARE.
[2017-03-12] MEDS: BLOOD SUGAR DIAGNOSTIC 1 EACH STRIP IN SCH ×4 (06:44→21:10)
--- NOTE | 2017-03-12 07:20 | NUR ---
MS RN OPENING NOTES RECEIVED PT FROM NIGHTSHIFT NURSE IN STABLE CONDITION. PT IS A/O X2. NO SOB OR SIGNS OF DISTRESS NOTED. BREATHING IS EVEN AND UNLABORED.PT DENIES ANY PAIN AT THIS TIME. PT IS ON ROOM AIR AND SATING WELL AT 96%. RIGHT UPPER ARM MIDLINE NOTED AND INFUSING 1/2 NS @ 75ML/HR. PT IS TOLERATING INFUSION WELL. NO REDNESS OR SIGNS OF INFILTRATION NOTED. BED IN LOW LOCKED POSITION, SIDE RAILS UP X3, CALL LIGHT WITHIN REACH. WILL CONTINUE TO MONITOR
[2017-03-12 07:47] LABS: BASOPHILS % (AUTO) 0.4 % (0.0-2.0); EOSINOPHILS # (AUTO) 0.2 /CMM (0.0-0.7); EOSINOPHILS % (AUTO) 1.5 % (0.0-6.0); HEMATOCRIT 54 % (39-51); HEMOGLOBIN 18.1 g/dL (13.5-17.5); LYMPHOCYTES # (AUTO) 2.1 /CMM (0.8-4.8); MEAN CORPUSCULAR HEMOGLOBIN 34 PG (26.0-33.0); MEAN CORPUSCULAR HGB CONC 34 g/dl (31.0-36.0); MEAN CORPUSCULAR VOLUME 100 fL (80-96); MONOCYTES # (AUTO) 0.7 /CMM (0.1-1.30); NEUTROPHILS # (AUTO) 7.1 /CMM (1.8-8.9); NEUTROPHILS % (AUTO) 70.1 % (43.0-81.0); PLATELET COUNT (AUTO) 168 /CMM (150-450); RDW COEFFICIENT OF VARIATION 14.3 (11.5-15.0); RED BLOOD CELL COUNT(AUTO) 5.39 MIL/uL (4.5-6.0); WHITE BLOOD COUNT (AUTO) 10.2 K/uL (4.3-11.0)
[2017-03-12 08:00] VITALS: BP 133/79
[2017-03-12 08:12] LABS: THYROID STIMULATING HORMONE 1.701 uIU/mL (0.358-3.74)
[2017-03-12 08:16] LABS: ALBUMIN 2.9 g/dL (3.4-5.0); BILIRUBIN,TOTAL 0.2 mg/dL (0.2-1.0); CALCIUM, SERUM 8.1 mg/dL (8.5-10.1); CREATININE 0.5 mg/dL (0.6-1.3); MAGNESIUM 1.8 mg/dL (1.8-2.4); PHOSPHORUS 3.6 mg/dL (2.5-4.9); POTASSIUM 3.4 mmol/L (3.5-5.1); TOTAL PROTEIN, SERUM 7.7 g/dL (6.4-8.2)
[2017-03-12] MEDS: PANTOPRAZOLE 40 MG TABLET.DR PO SCH (08:47)
[2017-03-12] MEDS: INSULIN REGULAR, HUMAN 100 UNIT/ML 3 ML VIAL SQ SCH ×3 (08:49→17:33)
[2017-03-12] MEDS: FINASTERIDE (5 MG) 5 MG TABLET PO SCH (09:57)
[2017-03-12] MEDS: ASCORBIC ACID 500 MG TABLET PO SCH ×2 (09:58→17:28)
[2017-03-12] MEDS: PHENYTOIN EXTENDED RELEASE 100 MG CAPSULE PO SCH ×2 (09:58→21:07)
[2017-03-12] MEDS: DULOXETINE HCL 20 MG CAPSULE.DR PO SCH (09:58)
[2017-03-12] MEDS: MULTIVIT, IRON, MIN NO. 8, FA 1 TAB PO SCH (09:58)
[2017-03-12] MEDS: GABAPENTIN 400 MG CAPSULE PO SCH ×3 (09:58→21:07)
[2017-03-12] MEDS: HEPARIN SODIUM, PORCINE 5000 UNITS/1 ML VIAL SQ SCH ×2 (09:59→21:10)
[2017-03-12] MEDS: AMLODIPINE BESYLATE 10 MG TABLET PO SCH (10:00)
[2017-03-12] MEDS: BENEFIBER 4 GM 1 EA PACKET PO SCH ×3 (10:01→17:28)
[2017-03-12] MEDS: POLYVINYL ALCOHOL 15 ML BOTTLE EACHEYE SCH ×2 (10:01→17:29)
[2017-03-12] MEDS: METOPROLOL TARTRATE 25 MG TABLET PO SCH ×2 (10:01→17:28)
[2017-03-12] MEDS ORDERED: POTASSIUM CHLORIDE 20 MEQ TAB.PRT.SR PO SCH (11:30)
[2017-03-12] MEDS: HYDROXYUREA 500 MG CAPSULE PO SCH (11:50)
[2017-03-12] MEDS: IV 1/2NS 1000 ML 1,000 ML IV PRN ×2 (12:21→22:57)
--- NOTE | 2017-03-12 14:59 | NUR ---
MS RN NOTES PT'S DPOA (TELLO) BROUGHT IN AN UPDATED POLST OF THE PT'S WISHES. DR DSOUZA WAS INFORMED AND GAVE CONSENT TO INPUT A DNR ORDER. ROSS THE CHARGE WAS WITNESS TO THIS. WILL INPUT ORDER
[2017-03-12 16:18] VITALS: BP 126/89
[2017-03-12] MEDS: HYDROCODONE/APAP 5/325MG 1 EACH TABLET PO PRN (17:30)
--- NOTE | 2017-03-12 19:00 | NUR ---
MS RN OPENING NOTES PATIENT RESTING IN BED A/O X 1, NO ACUTE DISTRESS NOTED. BREATHING EVEN AND UNLABORED, NO SOB NOTED. SAFETY MEASURES IN PLACE, BED LOCKED AND IN LOWEST POSITION, CALL LIGHT IN REACH. WILL CONTINUE TO MONITOR.
--- NOTE | 2017-03-12 19:06 | NUR ---
MS RN CLOSING NOTES PT REMAINS STABLE. NO ACUTE CHANGES IN CONDITION DURING SHIFT. ALL NEEDS WERE MET DURING SHIFT AND ORDERS CARRIED OUT ACCORDINGLY. ALL SAFETY MEASURES IN PLACE. WILL ENDORSE TO NIGHTSHIFT NURSE FOR RACHANA
[2017-03-12 19:11] LABS: APPEARANCE,URINE CLEAR (CLEAR); BILIRUBIN,URINE NEGATIVE (NEGATIVE); BLOOD, URINE NEGATIVE Ery/uL (NEGATIVE); COLOR,URINE YELLOW (YELLOW); KETONES,URINE NEGATIVE (NEGATIVE); LEUKOCYTE ESTERASE ,URINE TRACE (NEGATIVE); NITRITE, URINE NEGATIVE (NEGATIVE); PH,URINE 6.5 (5.0-8.0); PROTEIN,URINE NEGATIVE (NEGATIVE); UGLUCOSE NEGATIVE (NEGATIVE); UROBILINOGEN,URINE 0.2 EU/dL (0.2)
[2017-03-12 19:14] LABS: BACTERIA,URINE Few /HPF (None Seen); RBC,URINE 0-2 /HPF (0-2); SQUAMOUS EPITHELIAL CELL,UR Few /HPF (None Seen); WBC,URINE 0-2 /HPF (0-3)
[2017-03-12 20:00] VITALS: BP 128/76
[2017-03-12] MEDS: ATORVASTATIN 10 MG TABLET PO SCH (21:07)
[2017-03-12] MEDS: INSULIN DETEMIR 100 UNIT/ML CARTRIDGE SQ SCH (21:22)
[2017-03-13] MEDS: LEVETIRACETAM (250 MG) 250 MG TABLET PO SCH ×3 (05:03→22:02)
--- NOTE | 2017-03-13 05:57 | NUR ---
MS RN NOTES BLOOD SUGAR CHECK 169 MG/DL NO INSULIN SLIDING SCALE ORDERED WILL ENDORSE AM NURSE TO GIVE 16 UNITS OF INSULIN BEFORE EATING (TRAYS ARE OUT)
--- NOTE | 2017-03-13 06:30 | NUR ---
MS RN CLOSING NOTES PATIENT COMFORTABLY ASLEEP AND EASILY AWAKEN, HEAD OF BED ELEVATED FOR BETTER LUNG EXPANSION. TOLERATING ROOM AIR 02 SAT AT 98%. IV SITE MIDLINE NO S/S OF INFILTRATED PATENT AND INTACT, PATIENT DENIES PAIN AT THIS TIME. 0/10 RESPIRATIONS EVEN AND UNLABORED., NO S/S OF ACUTE DISTRESS, NO SOB, NO COUGH, NO CONGESTION, SKIN WARM AND DRY TO TOUCH, AFEBRILE, ALL NURSING CARE RENDERED, NEEDS ATTENDED AND ANTICIPATED, KEPT CLEAN AND DRY AND COMFORTABLE, GOOD SKIN CARE PROVIDED. ASSISTED REPOSITIONED EVERY 2 HOURS FOR COMFORT AND SKIN MGT. ALL DUE MEDS WAS GIVEN FREQUENT VISUAL CHECK DONE FOR SAFETY EVERY 2 HOURS. SEIZURE PRECAUTION. NO SEIZURE ACTIVITY NOTED THROUGHOUT THE SHIFT, SAFE HAZARD FREE ENVIRONMENT PROVIDED. CALL LIGHT WITHIN EASY TO REACH, ON LOW BED AT ALL TIMES TO ENSURE SAFETY, WILL ENDORSE TO THE NEXT SHIFT CONTINUE PLAN OF CARE. WILL ENDORSE AM NURSE TO GIVE 16 INSULIN WHEN TRAYS ARE OUT
--- NOTE | 2017-03-13 06:53 | NUR ---
MS TYLER NOTES PATIENT NOW UNCOOPERATIVE AND DOESN'T WANT TO BE CHANGE DESPITE RISK AND BENEFITS. WILL TRY AGAIN LATER Addendum: 03/13/17 at 0656 by JORGE HARRIS RN ADDENDUM: DOESN'T WANT TO BE CLEANED CHANGE EN
[2017-03-13 07:20] LABS: CALCIUM, SERUM 7.5 mg/dL (8.5-10.1); CREATININE 0.4 mg/dL (0.6-1.3); POTASSIUM 3.4 mmol/L (3.5-5.1)
--- NOTE | 2017-03-13 07:30 | NUR ---
AM RN NOTE Received patient awake, A/O X1 verbally responsive. Denies any pain or discomfort at this time. Resp even and non-labored. Midline intact and patent. Bed in low locked position. Will continue to monitor.
[2017-03-13 08:00] VITALS: BP 130/76
[2017-03-13] MEDS: BLOOD SUGAR DIAGNOSTIC 1 EACH STRIP IN SCH ×4 (08:17→21:59)
[2017-03-13] MEDS: ASCORBIC ACID 500 MG TABLET PO SCH ×2 (08:17→16:30)
[2017-03-13] MEDS: AMLODIPINE BESYLATE 10 MG TABLET PO SCH (08:18)
[2017-03-13] MEDS: MULTIVIT, IRON, MIN NO. 8, FA 1 TAB PO SCH (08:18)
[2017-03-13] MEDS: FINASTERIDE (5 MG) 5 MG TABLET PO SCH (08:18)
[2017-03-13] MEDS: DULOXETINE HCL 20 MG CAPSULE.DR PO SCH (08:18)
[2017-03-13] MEDS: PANTOPRAZOLE 40 MG TABLET.DR PO SCH (08:18)
[2017-03-13] MEDS: GABAPENTIN 400 MG CAPSULE PO SCH ×3 (08:18→22:02)
[2017-03-13] MEDS: PHENYTOIN EXTENDED RELEASE 100 MG CAPSULE PO SCH ×2 (08:18→22:02)
[2017-03-13] MEDS: BENEFIBER 4 GM 1 EA PACKET PO SCH ×3 (08:18→16:30)
[2017-03-13] MEDS: METOPROLOL TARTRATE 25 MG TABLET PO SCH ×2 (08:19→16:30)
[2017-03-13] MEDS: HYDROXYUREA 500 MG CAPSULE PO SCH (08:19)
[2017-03-13] MEDS: HEPARIN SODIUM, PORCINE 5000 UNITS/1 ML VIAL SQ SCH ×2 (08:20→21:00)
[2017-03-13] MEDS: INSULIN REGULAR, HUMAN 100 UNIT/ML 3 ML VIAL SQ SCH ×3 (08:21→17:22)
[2017-03-13] MEDS: POLYVINYL ALCOHOL 15 ML BOTTLE EACHEYE SCH ×2 (08:37→16:30)
[2017-03-13] MEDS ORDERED: POTASSIUM CHLORIDE 20 MEQ TAB.PRT.SR PO SCH (10:00)
[2017-03-13] MEDS ORDERED: POTASSIUM CHLORIDE 20 MEQ TAB.PRT.SR PO ONE (13:00)
[2017-03-13 16:00] VITALS: BP 114/76
[2017-03-13] MEDS: IV 1/2NS 1000 ML 1,000 ML IV PRN (16:49)
--- NOTE | 2017-03-13 18:16 | NUR ---
AM RN NOTE Patient resting in his bed no acute distress noted. Family at bedside. All needs met and attended in timely manner. Will continue to monitor and endorse care to next shift.
--- NOTE | 2017-03-13 19:35 | NUR ---
MS/RN NOTES RECEIVED PT. LYING IN BED AWAKE, ALERT AND ORIENTED X2. BREATHING EVEN AND UNLABORED ON ROOM AIR. NO SOB, RESPIRATORY DISTRESS OR COMPLAINTS OF PAIN NOTED AT THIS TIME. PT. WITH RIGHT UPPER ARM MIDLINE PRESENT, PATENT AND INTACT ADMINISTERING TO PT. 1/2NS @ 75 ML/HR. BED LOCKED AND IN LOWEST POSITION, SIDE RAILS UP X3, BED ALARM ON, CALL LIGHT WITHIN REACH, WILL CONTINUE TO MONITOR.
[2017-03-13 20:00] VITALS: BP 127/78
[2017-03-13] MEDS: INSULIN DETEMIR 100 UNIT/ML CARTRIDGE SQ SCH (22:01)
[2017-03-13] MEDS: ATORVASTATIN 10 MG TABLET PO SCH (22:02)
[2017-03-14] MEDS: IV 1/2NS 1000 ML 1,000 ML IV PRN (05:43)
[2017-03-14] MEDS: LEVETIRACETAM (250 MG) 250 MG TABLET PO SCH ×3 (05:43→21:45)
--- NOTE | 2017-03-14 06:21 | NUR ---
MS/RN NOTES PT. IS LYING IN BED RESTING. BREATHING EVEN AND UNLABORED ON ROOM AIR. NO SOB, RESPIRATORY DISTRESS OR COMPLAINTS OF PAIN NOTED AT THIS TIME AND THROUGHOUT SHIFT. PT. WITH RIGHT UPPER ARM MIDLINE PRESENT, PATENT AND INTACT ADMINISTERING TO PT. 1/2NS @ 75 ML/HR. ALL PT. NEEDS MET. PT. OFFLOADED, TURNED AND REPOSITIONED Q2H TOLERATED. ALL DUE MEDICATIONS GIVEN. BED LOCKED AND IN LOWEST POSITION, SIDE RAILS UP X3, BED ALARM ON, CALL LIGHT WITHIN REACH, WILL ENDORSE TO DAYSHIFT NURSE FOR CONTINUITY OF CARE.
[2017-03-14 06:31] LABS: BASOPHILS % (AUTO) 0.3 % (0.0-2.0); EOSINOPHILS # (AUTO) 0.3 /CMM (0.0-0.7); EOSINOPHILS % (AUTO) 2.8 % (0.0-6.0); HEMATOCRIT 51 % (39-51); HEMOGLOBIN 17.6 g/dL (13.5-17.5); LYMPHOCYTES # (AUTO) 2.1 /CMM (0.8-4.8); LYMPHOCYTES % (AUTO) 20.1 % (20.0-44.0); MEAN CORPUSCULAR HEMOGLOBIN 33 PG (26.0-33.0); MEAN CORPUSCULAR HGB CONC 35 g/dl (31.0-36.0); MEAN CORPUSCULAR VOLUME 97 fL (80-96); MONOCYTES # (AUTO) 0.7 /CMM (0.1-1.30); MONOCYTES % (AUTO) 6.6 % (2.0-12.0); NEUTROPHILS # (AUTO) 7.3 /CMM (1.8-8.9); NEUTROPHILS % (AUTO) 70.2 % (43.0-81.0); PLATELET COUNT (AUTO) 189 /CMM (150-450); RDW COEFFICIENT OF VARIATION 15.4 (11.5-15.0); RED BLOOD CELL COUNT(AUTO) 5.28 MIL/uL (4.5-6.0); WHITE BLOOD COUNT (AUTO) 10.4 K/uL (4.3-11.0)
[2017-03-14 07:39] LABS: CALCIUM, SERUM 8.4 mg/dL (8.5-10.1); CREATININE 0.5 mg/dL (0.6-1.3); MAGNESIUM 1.9 mg/dL (1.8-2.4); PHOSPHORUS 4.1 mg/dL (2.5-4.9); POTASSIUM 3.9 mmol/L (3.5-5.1)
[2017-03-14 08:00] VITALS: BP 131/75
--- NOTE | 2017-03-14 08:10 | NUR ---
MS RN RECEIVE DON BED, AWAKE,ALERT, ORIENTED X2-3,NOT IN ANY FORM OF DISTRESS, RESPIRATIONS EVEN AND UNLABORED NO SOB NOTED, LUNGS ARE CLEAR,ABDOMEN SOFT,POSITIVE BOWEL SOUNDS, DENIES PAIN AT THIS TIME, WILL MONITOR PATIENT'S CONDITION.
[2017-03-14] MEDS: BLOOD SUGAR DIAGNOSTIC 1 EACH STRIP IN SCH ×4 (08:31→21:44)
[2017-03-14] MEDS: POLYVINYL ALCOHOL 15 ML BOTTLE EACHEYE SCH ×2 (08:32→17:44)
[2017-03-14] MEDS: HYDROXYUREA 500 MG CAPSULE PO SCH (08:32)
[2017-03-14] MEDS: GABAPENTIN 400 MG CAPSULE PO SCH ×3 (08:32→21:45)
[2017-03-14] MEDS: FINASTERIDE (5 MG) 5 MG TABLET PO SCH (08:33)
[2017-03-14] MEDS: PANTOPRAZOLE 40 MG TABLET.DR PO SCH (08:33)
[2017-03-14] MEDS: PHENYTOIN EXTENDED RELEASE 100 MG CAPSULE PO SCH ×2 (08:33→21:45)
[2017-03-14] MEDS: BENEFIBER 4 GM 1 EA PACKET PO SCH ×3 (08:33→17:42)
[2017-03-14] MEDS: MULTIVIT, IRON, MIN NO. 8, FA 1 TAB PO SCH (08:33)
[2017-03-14] MEDS: ASCORBIC ACID 500 MG TABLET PO SCH ×2 (08:33→17:42)
[2017-03-14] MEDS: AMLODIPINE BESYLATE 10 MG TABLET PO SCH (08:37)
[2017-03-14] MEDS: METOPROLOL TARTRATE 25 MG TABLET PO SCH ×2 (08:37→17:42)
[2017-03-14] MEDS: HEPARIN SODIUM, PORCINE 5000 UNITS/1 ML VIAL SQ SCH ×2 (09:01→21:45)
[2017-03-14] MEDS: INSULIN REGULAR, HUMAN 100 UNIT/ML 3 ML VIAL SQ SCH ×3 (09:01→17:44)
--- NOTE | 2017-03-14 09:11 | NUR ---
MS TYLER BREAKFAST SERVED,DUE MEDS GIVEN.TOLERATED WELL.
--- NOTE | 2017-03-14 10:00 | NUR ---
MS RN PATIENT REFUSED TO CHANGE DRESSING AND TO OPEN LEFT KNEE DRESSING TO TAKE PICTURES, WILL TRY AGAIN LATER.
--- NOTE | 2017-03-14 11:30 | NUR ---
MS RN ON BED, FAMILY AT BEDSIDE.
[2017-03-14 16:00] VITALS: BP 112/77
--- NOTE | 2017-03-14 18:00 | NUR ---
MS RN PATIENT STILL REFUSING TO TAKE PICTURES AND DRESSING CHANGE, WILL ENDORSE TO ALLERGY PHYSICIAN FOR CONTINUITY OF CARE.
--- NOTE | 2017-03-14 19:20 | NUR ---
MS/RN NOTES RECEIVED PT. LYING IN BED RESTING. PT. IS EASILY AROUSABLE TO NAME. AWAKE, ALERT AND ORIENTED X2. BREATHING EVEN AND UNLABORED ON ROOM AIR. NO SOB, RESPIRATORY DISTRESS OR COMPLAINTS OF PAIN NOTED AT THIS TIME. PT. WITH RIGHT UPPER ARM MIDLINE PRESENT, PATENT AND INTACT ADMINISTERING TO PT. 1/2NS @ 75 ML/HR. BED LOCKED AND IN LOWEST POSITION, SIDE RAILS UP X3, BED ALARM ON, CALL LIGHT WITHIN REACH, WILL CONTINUE TO MONITOR.
[2017-03-14 20:00] VITALS: BP 136/91
[2017-03-14] MEDS: ATORVASTATIN 10 MG TABLET PO SCH (21:45)
[2017-03-14] MEDS: INSULIN DETEMIR 100 UNIT/ML CARTRIDGE SQ SCH (21:47)
[2017-03-15] MEDS: IV 1/2NS 1000 ML 1,000 ML IV PRN ×2 (03:42→17:59)
[2017-03-15] MEDS: LEVETIRACETAM (250 MG) 250 MG TABLET PO SCH ×3 (05:43→21:09)
[2017-03-15 06:00] LABS: BASOPHILS # (AUTO) 0.1 /CMM (0.0-0.2); BASOPHILS % (AUTO) 0.7 % (0.0-2.0); EOSINOPHILS # (AUTO) 0.2 /CMM (0.0-0.7); EOSINOPHILS % (AUTO) 2.1 % (0.0-6.0); HEMATOCRIT 52 % (39-51); HEMOGLOBIN 17.7 g/dL (13.5-17.5); LYMPHOCYTES # (AUTO) 2.4 /CMM (0.8-4.8); LYMPHOCYTES % (AUTO) 22.6 % (20.0-44.0); MEAN CORPUSCULAR HEMOGLOBIN 34 PG (26.0-33.0); MEAN CORPUSCULAR HGB CONC 34 g/dl (31.0-36.0); MEAN CORPUSCULAR VOLUME 100 fL (80-96); MONOCYTES # (AUTO) 0.7 /CMM (0.1-1.30); NEUTROPHILS # (AUTO) 7.2 /CMM (1.8-8.9); NEUTROPHILS % (AUTO) 67.6 % (43.0-81.0); PLATELET COUNT (AUTO) 144 /CMM (150-450); RDW COEFFICIENT OF VARIATION 14.3 (11.5-15.0); RED BLOOD CELL COUNT(AUTO) 5.21 MIL/uL (4.5-6.0); WHITE BLOOD COUNT (AUTO) 10.6 K/uL (4.3-11.0)
[2017-03-15 06:01] LABS: CALCIUM, SERUM 8.8 mg/dL (8.5-10.1); CREATININE 0.4 mg/dL (0.6-1.3); MAGNESIUM 2.2 mg/dL (1.8-2.4); PHOSPHORUS 4.7 mg/dL (2.5-4.9)
--- NOTE | 2017-03-15 06:34 | NUR ---
MS/RN NOTES PT. IS LYING IN BED. AWAKE, ALERT AND ORIENTED X2.BREATHING EVEN AND UNLABORED ON ROOM AIR. NO SOB, RESPIRATORY DISTRESS OR COMPLAINTS OF PAIN NOTED AT THIS TIME. PT. WITH RIGHT UPPER ARM MIDLINE PRESENT, PATENT AND INTACT ADMINISTERING TO PT. 1/2NS @ 75 ML/HR. ALL PT. NEEDS MET. PT. OFFLOADED, TURNED AND REPOSITIONED Q2H TOLERATED. BED LOCKED AND IN LOWEST POSITION, SIDE RAILS UP X3, BED ALARM ON, CALL LIGHT WITHIN REACH, WILL ENDORSE TO DAYSHIFT NURSE FOR CONTINUITY OF CARE.
--- NOTE | 2017-03-15 07:35 | NUR ---
RN OPENING NOTES RECEIVED PT. IN BED A&OX3. BREATHING UNLABORED ON ROOM AIR. NO S/S OF ACUTE DISTRESS. IV ACCESS IS INTACT AND PATENT, IV FLUIDS RUNNING AT 75 ML/HR. PT. BED IS IN LOWEST, LOCKED POSITION, 2 SIDE RAILS UP, AND CALL LIGHT WITHIN REACH. INSTRUCTED PT. TO USE CALL LIGHT FOR ASSISTANCE. WILL CONTINUE TO ASSESS AND MONITOR.
[2017-03-15 08:00] VITALS: BP 123/80
[2017-03-15] MEDS: BLOOD SUGAR DIAGNOSTIC 1 EACH STRIP IN SCH ×4 (08:19→21:13)
[2017-03-15] MEDS: INSULIN REGULAR, HUMAN 100 UNIT/ML 3 ML VIAL SQ SCH ×3 (08:21→18:07)
[2017-03-15] MEDS: POLYVINYL ALCOHOL 15 ML BOTTLE EACHEYE SCH ×2 (08:23→17:47)
[2017-03-15] MEDS: PANTOPRAZOLE 40 MG TABLET.DR PO SCH (08:30)
[2017-03-15] MEDS: BENEFIBER 4 GM 1 EA PACKET PO SCH ×3 (08:31→17:47)
[2017-03-15] MEDS: ASCORBIC ACID 500 MG TABLET PO SCH ×2 (09:21→17:58)
[2017-03-15] MEDS: MULTIVIT, IRON, MIN NO. 8, FA 1 TAB PO SCH (09:21)
[2017-03-15] MEDS: GABAPENTIN 400 MG CAPSULE PO SCH ×3 (09:24→21:10)
[2017-03-15] MEDS: HYDROXYUREA 500 MG CAPSULE PO SCH (09:24)
[2017-03-15] MEDS: PHENYTOIN EXTENDED RELEASE 100 MG CAPSULE PO SCH ×2 (09:26→21:09)
[2017-03-15] MEDS: FINASTERIDE (5 MG) 5 MG TABLET PO SCH (09:27)
[2017-03-15] MEDS: AMLODIPINE BESYLATE 10 MG TABLET PO SCH (09:27)
[2017-03-15] MEDS: METOPROLOL TARTRATE 25 MG TABLET PO SCH ×2 (09:27→17:47)
[2017-03-15] MEDS: HEPARIN SODIUM, PORCINE 5000 UNITS/1 ML VIAL SQ SCH ×2 (09:35→21:13)
--- NOTE | 2017-03-15 11:13 | NUR ---
RN NOTES PT.'S LEFT LOWER EXTREMITY HAS REDNESS, NON PITTING SWELLING WITH INFLAMMATION, AND WARM ON PALPATION. NOTIFIED MD. NEW ORDER GIVEN FOR LEFT LEG VENOUS DOPPLER ULTRASOUND.
--- NOTE | 2017-03-15 13:00 | NUR ---
RN NOTES PER PHYSICAL THERAPIST PT. IS BED BOUND AND WILL BE ON BED REST TODAY.
[2017-03-15 16:00] VITALS: BP 114/74
[2017-03-15] MEDS: POVIDONE-IODINE OINT 28.4 GM TUBE TP SCH (17:48)
--- NOTE | 2017-03-15 19:04 | NUR ---
RN closing NOTES PT. IN BED A&OX3. BREATHING UNLABORED ON ROOM AIR. NO S/S OF ACUTE DISTRESS. IV ACCESS IS INTACT AND PATENT, IV FLUIDS RUNNING AT 75 ML/HR. PT. BED IS IN LOWEST, LOCKED POSITION, 2 SIDE RAILS UP, AND CALL LIGHT WITHIN REACH. INSTRUCTED PT. TO USE CALL LIGHT FOR ASSISTANCE. WILL ENDORSE REPORT TO NURSE.
--- NOTE | 2017-03-15 19:40 | NUR ---
MS/RN NOTES RECEIVED PT. LYING IN BED, AWAKE, ALERT AND ORIENTED X2. BREATHING EVEN AND UNLABORED ON ROOM AIR. NO SOB, RESPIRATORY DISTRESS OR COMPLAINTS OF PAIN NOTED AT THIS TIME. PT. WITH RIGHT UPPER ARM MIDLINE PRESENT, PATENT AND INTACT ADMINISTERING TO PT. 1/2NS @ 75 ML/HR. BED LOCKED AND IN LOWEST POSITION, SIDE RAILS UP X3, BED ALARM ON, CALL LIGHT WITHIN REACH, WILL CONTINUE TO MONITOR.
[2017-03-15 20:00] VITALS: BP 113/72
[2017-03-15] MEDS: ATORVASTATIN 10 MG TABLET PO SCH (21:10)
[2017-03-15] MEDS: INSULIN DETEMIR 100 UNIT/ML CARTRIDGE SQ SCH (21:14)
[2017-03-16] MEDS: LEVETIRACETAM (250 MG) 250 MG TABLET PO SCH ×3 (06:16→21:37)
[2017-03-16] MEDS: IV 1/2NS 1000 ML 1,000 ML IV PRN ×2 (06:46→19:49)
--- NOTE | 2017-03-16 07:00 | NUR ---
MS/RN NOTES PT. IS LYING IN BED RESTING. BREATHING EVEN AND UNLABORED ON ROOM AIR. NO SOB, RESPIRATORY DISTRESS OR COMPLAINTS OF PAIN NOTED AT THIS TIME. PT. WITH RIGHT UPPER ARM MIDLINE PRESENT, PATENT AND INTACT ADMINISTERING TO PT. 1/2NS @ 75 ML/HR. ALL PT. NEEDS MET. PT. OFFLOADED, TURNED AND REPOSITIONED Q2H TOLERATED. ALL DUE MEDICATIONS GIVEN. NO S/S OF HYPO/HYPERGLYCEMIA NOTED AT THIS TIME AND THROUGHOUT SHIFT. BED LOCKED AND IN LOWEST POSITION, SIDE RAILS UP X3, BED ALARM ON, CALL LIGHT WITHIN REACH, WILL ENDORSE TO DAYSHIFT NURSE FOR CONTINUITY OF CARE.
--- NOTE | 2017-03-16 07:10 | NUR ---
RN MS NOTES PATIENT ALERT AND ORIENTED X3, BREATHING EVEN AND UNLABORED, NO SOB NOTED, NO S/SX OF HYPO OR HYPERGLYCEMIA NOTED, NEEDS ATTENDED AND MET, SAFETY MEASURES IN PLACED, CALL LIGHT WITHIN REACH, WILL CONTINUE TO MONITOR.
[2017-03-16] MEDS: BLOOD SUGAR DIAGNOSTIC 1 EACH STRIP IN SCH ×4 (07:50→22:16)
[2017-03-16] MEDS: PANTOPRAZOLE 40 MG TABLET.DR PO SCH (07:50)
[2017-03-16] MEDS: INSULIN REGULAR, HUMAN 100 UNIT/ML 3 ML VIAL SQ SCH ×3 (07:52→17:01)
[2017-03-16 08:00] VITALS: BP 133/73
[2017-03-16 08:06] LABS: BASOPHILS % (AUTO) 0.5 % (0.0-2.0); EOSINOPHILS # (AUTO) 0.2 /CMM (0.0-0.7); HEMATOCRIT 48 % (39-51); HEMOGLOBIN 16.3 g/dL (13.5-17.5); LYMPHOCYTES # (AUTO) 1.8 /CMM (0.8-4.8); LYMPHOCYTES % (AUTO) 21.6 % (20.0-44.0); MEAN CORPUSCULAR HEMOGLOBIN 34 PG (26.0-33.0); MEAN CORPUSCULAR HGB CONC 34 g/dl (31.0-36.0); MEAN CORPUSCULAR VOLUME 99 fL (80-96); MONOCYTES # (AUTO) 0.6 /CMM (0.1-1.30); MONOCYTES % (AUTO) 7.1 % (2.0-12.0); NEUTROPHILS # (AUTO) 5.8 /CMM (1.8-8.9); NEUTROPHILS % (AUTO) 68.8 % (43.0-81.0); PLATELET COUNT (AUTO) 130 /CMM (150-450); RDW COEFFICIENT OF VARIATION 14.4 (11.5-15.0); RED BLOOD CELL COUNT(AUTO) 4.84 MIL/uL (4.5-6.0); WHITE BLOOD COUNT (AUTO) 8.4 K/uL (4.3-11.0)
[2017-03-16 08:19] LABS: CALCIUM, SERUM 8.4 mg/dL (8.5-10.1); CREATININE 0.5 mg/dL (0.6-1.3); MAGNESIUM 1.9 mg/dL (1.8-2.4); PHOSPHORUS 3.5 mg/dL (2.5-4.9); POTASSIUM 3.8 mmol/L (3.5-5.1)
[2017-03-16] MEDS: POLYVINYL ALCOHOL 15 ML BOTTLE EACHEYE SCH ×2 (09:20→16:59)
[2017-03-16] MEDS: BENEFIBER 4 GM 1 EA PACKET PO SCH ×3 (09:20→16:59)
[2017-03-16] MEDS: HYDROXYUREA 500 MG CAPSULE PO SCH (09:21)
[2017-03-16] MEDS: PHENYTOIN EXTENDED RELEASE 100 MG CAPSULE PO SCH ×2 (09:21→21:36)
[2017-03-16] MEDS: AMLODIPINE BESYLATE 10 MG TABLET PO SCH (09:22)
[2017-03-16] MEDS: GABAPENTIN 400 MG CAPSULE PO SCH ×3 (09:22→21:38)
[2017-03-16] MEDS: FINASTERIDE (5 MG) 5 MG TABLET PO SCH (09:22)
[2017-03-16] MEDS: METOPROLOL TARTRATE 25 MG TABLET PO SCH ×2 (09:22→16:59)
[2017-03-16] MEDS: ASCORBIC ACID 500 MG TABLET PO SCH ×2 (09:23→16:59)
[2017-03-16] MEDS: MULTIVIT, IRON, MIN NO. 8, FA 1 TAB PO SCH (09:23)
[2017-03-16] MEDS: HEPARIN SODIUM, PORCINE 5000 UNITS/1 ML VIAL SQ SCH ×2 (09:24→21:41)
[2017-03-16] MEDS: POVIDONE-IODINE OINT 28.4 GM TUBE TP SCH ×2 (09:33→17:00)
--- NOTE | 2017-03-16 12:00 | NUR ---
RN MS NOTES PATIENT SEEN BY DR. LEI AND DR. PAN. PLAN OF CARE DISCUSSED WITH PATIENT AND FAMILY. HOTBED OPERATOR AND CASE MANAGEMENT TALKED TO FAMILY PER FAMILY'S REQUEST.
[2017-03-16 16:00] VITALS: BP 131/80
--- NOTE | 2017-03-16 17:30 | NUR ---
RN MS NOTES PATIENT ALERT AND ORIENTED, NO DISTRESS NOTED, ADL CARE PROVIDED, LINEN CHANGED, WOUND TREATMENT RENDERED.
--- NOTE | 2017-03-16 18:49 | NUR ---
RN MS NOTES PATIENT HAS REFUSED TURNING AND REPOSITIONING AT TIMES, ALL DUE MEDS GIVEN ORDERED, CATHIE MIDLINE PATENT AND INTACT, IVF INFUSING AND TOLERATING WELL, NEEDS ATTENDED, SAFETY MEASURES IN PLACED, CALL LIGHT WITHIN REACH, WILL ENDORSE TO SEARCH DIRECTOR FOR RACHANA.
--- NOTE | 2017-03-16 19:25 | NUR ---
MS/PENCIL MAKER; RECEIVED PT IN BED AWAKE , ALERT AND VERBALLY RESPONSIVE BUT SLOW. BREATHING NON LABORED. DENIES PAIN. IVF ON PROGRESS. BED ON LOWER POSITION AND LOCKED FOR SAFETY. SIDE RAILS ARE UP FOR SAFETY. WILL CONTINUE TO MONITOR. CALL LIGHT WITHIN REACH.
[2017-03-16 20:00] VITALS: BP 138/75
[2017-03-16] MEDS: ATORVASTATIN 10 MG TABLET PO SCH (21:39)
--- NOTE | 2017-03-16 22:00 | NUR ---
MS/PATROL DEPUTY SHERIFF; BS 173 NO SLIDING SCALE ORDER . ON LEVEMIR INSULIN 68 UNITS GIVEN. WILL CONTINUE TO MONITOR.
[2017-03-16] MEDS: INSULIN DETEMIR 100 UNIT/ML CARTRIDGE SQ SCH (22:20)
[2017-03-17] MEDS: HYDROCODONE/APAP 5/325MG 1 EACH TABLET PO PRN (02:01)
[2017-03-17] MEDS: LEVETIRACETAM (250 MG) 250 MG TABLET PO SCH ×2 (04:30→12:34)
[2017-03-17] MEDS: BLOOD SUGAR DIAGNOSTIC 1 EACH STRIP IN SCH ×2 (06:14→12:31)
--- NOTE | 2017-03-17 06:15 | NUR ---
MS/TRUCKSMITH; BS 172 NO COVERAGE. SLEPT FAIRLY. IVF ON PROGRESS. WILL ENDORSE TO THE DAY SHIFT NURSE.
[2017-03-17 08:00] VITALS: BP 135/86
--- NOTE | 2017-03-17 08:00 | NUR ---
MS RN NOTES PATIENT IN BED RESTING NO SOB OR ACUTE DISTRESS NOTED. PATIENT WITH MIDLINE INTACT PATENT ON RIGHT ARM. BED IN LOW LOCKED POSITION, CALL LIGHT WITHIN REACH. WILL CONTINUE TO MONITOR.
[2017-03-17] MEDS: BENEFIBER 4 GM 1 EA PACKET PO SCH ×2 (08:28→12:34)
[2017-03-17] MEDS: MULTIVIT, IRON, MIN NO. 8, FA 1 TAB PO SCH (08:28)
[2017-03-17] MEDS: ASCORBIC ACID 500 MG TABLET PO SCH (08:28)
[2017-03-17] MEDS: GABAPENTIN 400 MG CAPSULE PO SCH ×2 (08:29→12:34)
[2017-03-17] MEDS: PHENYTOIN EXTENDED RELEASE 100 MG CAPSULE PO SCH (08:29)
[2017-03-17] MEDS: PANTOPRAZOLE 40 MG TABLET.DR PO SCH (08:29)
[2017-03-17] MEDS: FINASTERIDE (5 MG) 5 MG TABLET PO SCH (08:29)
[2017-03-17] MEDS: HYDROXYUREA 500 MG CAPSULE PO SCH (08:30)
[2017-03-17] MEDS: AMLODIPINE BESYLATE 10 MG TABLET PO SCH (08:30)
[2017-03-17 08:31] VITALS: BP 135/86
[2017-03-17] MEDS: POLYVINYL ALCOHOL 15 ML BOTTLE EACHEYE SCH (08:31)
[2017-03-17] MEDS: METOPROLOL TARTRATE 25 MG TABLET PO SCH (08:31)
[2017-03-17] MEDS: INSULIN REGULAR, HUMAN 100 UNIT/ML 3 ML VIAL SQ SCH ×2 (08:34→12:32)
[2017-03-17] MEDS: HEPARIN SODIUM, PORCINE 5000 UNITS/1 ML VIAL SQ SCH (08:36)
[2017-03-17] MEDS: POVIDONE-IODINE OINT 28.4 GM TUBE TP SCH (08:37)
--- NOTE | 2017-03-17 11:00 | NUR ---
MS RN NOTES PATIENT SEEN AND EVALUATED BY DR. LEI ORDERS NOTED AND CARRIED OUT.
--- NOTE | 2017-03-17 14:00 | NUR ---
MS RN NOTES PATIENT DISCHARGED TO [facility] WITH EMT. PATIENT IN STABLE CONDITION. MIDLINE ON RIGHT ARM REMOVED WITH MINIMAL BLEEDING. PROVIDED DISCHARGE INSTRUCTIONS TO PATIENT AND FAMILY. REPORT GIVEN TO ANGELIA TYLER AT [facility]. ALL BELONGINGS ACCOUNTED FOR. ALL NEEDS MET. ID BAND REMOVED. PATIENT TRANSFERRED TO [facility] WITH EMT.
== END 2017-03-17 14:30 | DRG 91 ==
LOC: ER 11:43 → MED 13:34
PROVIDERS: ADMIT Internal Medicine; ATTEND Internal Medicine
PROC: 05H533Z Insertion of Infusion Device into Right Subclavian Vein, Percutaneous Approach (ICD-10-PCS; principal; 2017-03-11)
PROC: B546ZZA Ultrasonography of Right Subclavian Vein, Guidance (ICD-10-PCS; 2017-03-11)
PROC: 0HBRXZZ Excision of Toe Nail, External Approach (ICD-10-PCS; 2017-03-14)
DX: G92 Toxic encephalopathy (principal); R53.2 Functional quadriplegia; D68.59 Other primary thrombophilia; E11.69 Type 2 diabetes mellitus with other specified complication; I11.0 Hypertensive heart disease with heart failure; I50.9 Heart failure, unspecified; D75.1 Secondary polycythemia; L03.116 Cellulitis of left lower limb; M86.9 Osteomyelitis, unspecified; E86.0 Dehydration; Z98.2 Presence of cerebrospinal fluid drainage device; Z87.820 Personal history of traumatic brain injury; Z79.899 Other long term (current) drug therapy; Z79.4 Long term (current) use of insulin; N40.0 Benign prostatic hyperplasia without lower urinary tract symptoms; E78.5 Hyperlipidemia, unspecified; I25.10 Atherosclerotic heart disease of native coronary artery without angina pectoris; G40.909 Epilepsy, unspecified, not intractable, without status epilepticus; G89.4 Chronic pain syndrome; Z90.49 Acquired absence of other specified parts of digestive tract; Z74.01 Bed confinement status; T40.2X5A Adverse effect of other opioids, initial encounter; Y92.9 Unspecified place or not applicable; L03.031 Cellulitis of right toe; I87.8 Other specified disorders of veins; M24.562 Contracture, left knee; Z98.890 Other specified postprocedural states; K59.00 Constipation, unspecified
CPT/HCPCS: 36415; 36569; 70450-TC; 71010-TC; 80048-TC; 80053-TC; 80061-TC; 80076-TC; 80185-TC; 81000-TC; 82962-TC; 83605-TC; 83735-TC; 83891; 83900; 83909; 83912; 84100-TC; 84443-TC; 84484-TC; 85025-TC; 87040-TC; 87081-TC; 93970-TC; A4606; A6402; A6403; J1644; J1815; J3490; J7030; J7042; Z7610

== ENCOUNTER 2018-06-13 15:47 | Inpatient (IN) | payer MEDICARE, MEDICAID ==
[~2018-06-13] VITALS: Ht 162.6 cm; Wt 78.9 kg
[~2018-06-13 15:47] MED LIST changes: +ARGI1POW13 PO; +BENEFIBER PO; +BISA10SU8 RC; +BLOO-668 IN; -DEXT15DR6 EACHEYE; +DIPH25CA6 PO; -DULO20CA PO; -HYDR-3326 PO; -HYDR-552 PO; +MAGN400O6 PO; +MELA5TAB PO; -MULT-1119 PO; +MULT1TAB11 PO; +NA P133E RC; +OXYC-128 PO; +PIPERACILLIN /TAZOBACTAM 3.375 G in IV D5W 50 ML IV SCH; +POLY15DR40 EACHEYE; -SULF1TAB48 PO; -ZOLP5TAB7 PO
[2018-06-13] MEDS ORDERED: MORPHINE SULFATE INJ 2 MG/ML DISP.SYRIN IV ONE (16:00)
--- NOTE | 2018-06-13 16:00 | NUR ---
PT ED FROM [facility] FOR R LEG PAIN, DENIES TRAUMA, PT AAOX2, RESPIRATIONS EVEN AND UNLABORED, NO SOB, NAD NOTED, VSS, PT ON MONITOR, PENDING MD ANNE
[2018-06-13] MEDS ORDERED: BIOT5TAB PO (16:16)
[2018-06-13] MEDS ORDERED: NEPA3DRO EACHEYE (16:16)
[2018-06-13] MEDS ORDERED: SULF1TAB48 PO (16:16)
[2018-06-13] MEDS ORDERED: PANT20TA3 PO (16:16)
[2018-06-13] MEDS ORDERED: VITA100014 PO (16:16)
[2018-06-13] MEDS ORDERED: HEPA50008 SQ (16:16)
[2018-06-13] MEDS ORDERED: HYDROMORPHONE 1 MG/1 ML DISP.SYRIN IV ONE (16:30)
[2018-06-13] MEDS ORDERED: HYDROMORPHONE INJ 0.5 MG/0.5 ML SYRINGE ONE (16:36)
[2018-06-13 16:38] LABS: BASOPHILS # (AUTO) 0.1 /CMM (0.0-0.2); BASOPHILS % (AUTO) 0.5 % (0.0-2.0); EOSINOPHILS % (AUTO) 0.6 % (0.0-6.0); HEMATOCRIT 52 % (39-51); HEMOGLOBIN 17.6 g/dL (13.5-17.5); LYMPHOCYTES # (AUTO) 1.6 /CMM (0.8-4.8); LYMPHOCYTES % (AUTO) 13.7 % (20.0-44.0); MEAN CORPUSCULAR HGB CONC 34 g/dl (31.0-36.0); MEAN CORPUSCULAR VOLUME 100 fL (80-96); MONOCYTES # (AUTO) 0.8 /CMM (0.1-1.30); NEUTROPHILS # (AUTO) 9.3 /CMM (1.8-8.9); NEUTROPHILS % (AUTO) 78.2 % (43.0-81.0); PLATELET COUNT (AUTO) 209 /CMM (150-450); RED BLOOD CELL COUNT(AUTO) 5.19 MIL/uL (4.5-6.0)
[2018-06-13 16:48] LABS: CALCIUM, SERUM 8.6 mg/dL (8.5-10.1); CREATININE 0.6 mg/dL (0.6-1.3); POTASSIUM 4.5 mmol/L (3.5-5.1)
--- NOTE | 2018-06-13 16:59 | NUR ---
CALLED [employer] UNIT SECY WAS PAGED.
[2018-06-13] MEDS ORDERED: PIPERACILLIN /TAZOBACTAM 3.375 G in IV D5W 50 ML IV ONE (17:30)
[2018-06-13] MEDS ORDERED: VANCOMYCIN 1 GM in IV D5W 250 ML IV ONE (17:30)
--- NOTE | 2018-06-13 17:31 | NUR ---
BLOOD CX DRAWN AND SENT TO LAB; CALLED PHARMACY FOR IV ATB'S
[2018-06-13] MEDS ORDERED: DEXTROSE 50%-WATER 50 ML DISP.SYRIN IV PRN (18:00)
[2018-06-13] MEDS ORDERED: ACETAMINOPHEN 325 MG TABLET PO PRN (18:00)
[2018-06-13] MEDS ORDERED: Z GUARD REMEDY 2 OZ OINT TP PRN (18:00)
[2018-06-13] MEDS ORDERED: VANCOMYCIN 1 GM in IV D5W 250 ML IV SCH (18:00)
[2018-06-13] MEDS ORDERED: ZOLPIDEM TARTRATE 5 MG TABLET PO PRN (18:00)
[2018-06-13] MEDS ORDERED: BISACODYL SUPP (10 MG) 10 MG/SUPP.RECT SUPP.RECT RC PRN (18:00)
[2018-06-13] MEDS ORDERED: MAGNESIUM HYDROXIDE 30 ML UDC PO PRN (18:00)
[2018-06-13] MEDS ORDERED: MAG HYDROX/AL HYDROX/SIMETH 30 ML UDC PO PRN (18:00)
[2018-06-13] MEDS ORDERED: ONDANSETRON HCL/PF 4 MG/2 ML VIAL IVP PRN (18:00)
--- NOTE | 2018-06-13 19:29 | NUR ---
REPORT GIVEN TO NAYELI DUKES FOR RACHANA; 326-2 MS
[2018-06-13] MEDS ORDERED: FEE PK DOSING 1 MIN EA MC ONE (19:35)
[2018-06-13 19:50] VITALS: BP 141/86
--- NOTE | 2018-06-13 19:50 | NUR ---
RN MS ADMITTING OPENING NOTES RECEIVED PATIENT FROM ER VIA GURNEY TRANSPORTED TO BED SAFELY,AWAKE ALERT AND ORIENTED X 1-2, RESPIRATIONS EVEN AND UNLABORED WITH EQUAL RISE AND FALL OF CHEST, IV SITE TO RIGHT HAND #20 INTACT AND PATENT, NO REDNESS, NO INFILTRATION PRESENT, PATIENT NOTED WITH LEFT LOWER EXTREMITY CONTRACTURE WITH DRESSINGS. PATIENT REFUSED BODY SKIN ASSESSMENT AND PICTURES. PATIENT ALSO REFUSED TO BE TURNED AT THIS TIME , REPOSITIONING ENCOURAGED PATIENT REFUSED, UNABLE TO PLACE SPECIAL WOUND CARE MATTRESS. FAMILY AT BEDSIDE AWARE. EXPLAINED RISKS AND BENEFITS PATIENT STILL REFUSED. POA AWARE. BELONGINGS LIST DONE. MD AWARE OF ADMISSION WILL FOLLOW ORDERS PER MD. PATIENT SETTLED IN ROOM , ORIENTED TO STAFF AND CALL LIGHT, ORIENTED TO CALL LIGHT, SNACK PROVIDED AND FLUIDS OFFERED, URINAL OFFERED, PATIENT IS REQUESTING TO HAVE URINAL PLACED ON PRIVATE AREA AND DO NOT REMOVE. WILL CONTINUE TO MONITOR AND ATTEND TO NEEDS.
[2018-06-13 20:38] VITALS: BP 141/86
[2018-06-13] MEDS: IV NS 0.9% 1,000 ML IV PRN (20:59)
[2018-06-13] MEDS: HEPARIN SODIUM, PORCINE 5000 UNITS/1 ML VIAL SQ SCH (21:00)
[2018-06-13] MEDS: ATORVASTATIN 10 MG TABLET PO SCH (21:21)
[2018-06-13] MEDS: LEVETIRACETAM (250 MG) 250 MG TABLET PO SCH (21:22)
[2018-06-13] MEDS: PHENYTOIN EXTENDED RELEASE 100 MG CAPSULE PO SCH (21:22)
--- NOTE | 2018-06-13 21:22 | NUR ---
RN MS NOTES PATIENT REFUSED HEPARIN ORDERED EXPLAINED RISKS AND BENEFITS STILL REFUSED X 3 STATES " I DONT WANT IT, I ALWAYS REFUSE HEPARIN."
[2018-06-13] MEDS: HYDROCODONE/APAP 10/325MG 1 EA TABLET PO PRN (21:44)
--- NOTE | 2018-06-13 21:44 | NUR ---
RN MS NOTES PATIENT REQUESTING FOR PAIN MEDICATION COMPLAINT OF 8-9/10 TO LEGS NORCO 10/325 GIVEN ORDERED WILL CONTINUE TO MONITOR FOR EFFECTIVENESS.
[2018-06-13] MEDS ORDERED: BLOOD SUGAR DIAGNOSTIC 1 EACH STRIP IN SCH (22:00)
[2018-06-13] MEDS ORDERED: INSULIN GLARGINE, 100 UNIT/ML CARTRIDGE SQ ONE (22:58)
[2018-06-13] MEDS ORDERED: INSULIN REGULAR, HUMAN 100 UNIT/ML 3 ML VIAL ONE (22:58)
--- NOTE | 2018-06-13 23:00 | NUR ---
RN MS NOTES SNACK PROVIDED WITH INSULIN .
[2018-06-13] MEDS: BLOOD SUGAR DIAGNOSTIC 1 EACH STRIP VI SCH (23:17)
[2018-06-13] MEDS: INSULIN GLARGINE, 100 UNIT/ML CARTRIDGE SQ SCH (23:19)
[2018-06-13] MEDS: *INSULIN REGULAR(HUMULIN R)HUM 100 UNIT/ML VIAL SQ PRN (23:20)
[2018-06-13] MEDS: PIPERACILLIN /TAZOBACTAM 3.375 G in IV D5W 50 ML IV SCH (23:53)
[2018-06-14] MEDS: VANCOMYCIN 1 GM in IV D5W 250 ML IV SCH ×3 (02:05→18:00)
--- NOTE | 2018-06-14 04:01 | NUR ---
RN MS NOTES REPORT GIVEN TO GUILLE FOR CONTINUITY OF CARE. PATIENT REMAINS IN BED SLEEPING BUT EASILY AROUSABLE AND ALERT X1-2 RESPIRATIONS EVEN AND UNLABORED WITH EQUAL RISE AND FALL OF CHEST.
--- NOTE | 2018-06-14 04:05 | NUR ---
RN Notes Received pt asleep, on room air, no signs of distress and discomfort noted. IV access on left hand patent and intact with ongoing IVF infusing well. Kept bed in the lowest position, locked with 2 side rails up and call light with in reach. Will continue to monitor pt.
[2018-06-14] MEDS: PIPERACILLIN /TAZOBACTAM 3.375 G in IV D5W 50 ML IV SCH ×4 (05:58→23:16)
[2018-06-14] MEDS: LEVETIRACETAM (250 MG) 250 MG TABLET PO SCH ×3 (05:58→21:43)
[2018-06-14] MEDS: BLOOD SUGAR DIAGNOSTIC 1 EACH STRIP VI SCH ×4 (06:41→21:44)
[2018-06-14] MEDS: INSULIN REGULAR, HUMAN 100 UNIT/ML 3 ML VIAL SQ PRN ×2 (06:54→12:03)
--- NOTE | 2018-06-14 07:25 | NUR ---
RN Notes Patient awake in bed, alert with periods of confusion noted. On room air and tolerated well. Denies any signs of distress and discomfort noted. Ask patient if its ok to do skin assessment, patient strongly refused. Kept clean and dry. All needs attended.Safety measures and fall precaution observed. Endorsed to morning RN for continuity of care.
[2018-06-14 08:00] VITALS: BP 163/84
--- NOTE | 2018-06-14 08:00 | NUR ---
RN NOTES RECEIVED PATIENT IN THE BED, A/O X3. PATIENT BED BOUND. PATIENT HAS NO ACUTE RESPIRATORY DISTRESS. SCHEDULED MEDICATION ADMINISTERED. PATIENT USING URINAL, PATIENT REFUSED TO BE TOUCHED, REFUSED TURN AND REPOSTION, CALL LIGHT WITHIN TO REACH. SAFETY PRECAUTION MAINTAINED ALL THE TIME.
[2018-06-14] MEDS ORDERED: GABAPENTIN 100 MG CAPSULE PO SCH (09:00)
[2018-06-14] MEDS: PANTOPRAZOLE 40 MG TABLET.DR PO SCH (09:42)
[2018-06-14] MEDS: FINASTERIDE (5 MG) 5 MG TABLET PO SCH (09:42)
[2018-06-14] MEDS: PHENYTOIN EXTENDED RELEASE 100 MG CAPSULE PO SCH ×2 (09:43→21:42)
[2018-06-14] MEDS: METOPROLOL TARTRATE 25 MG TABLET PO SCH ×2 (09:43→17:29)
[2018-06-14] MEDS: AMLODIPINE BESYLATE 10 MG TABLET PO SCH (09:44)
[2018-06-14] MEDS: HEPARIN SODIUM, PORCINE 5000 UNITS/1 ML VIAL SQ SCH ×2 (09:46→21:43)
[2018-06-14] MEDS: HYDROXYUREA 500 MG CAPSULE PO SCH (10:03)
[2018-06-14] MEDS: HYDROCODONE/APAP 10/325MG 1 EA TABLET PO PRN ×2 (10:12→14:07)
--- NOTE | 2018-06-14 10:12 | NUR ---
RN NOTES ADMINISTERED NARCO 10/325 MG PO PRN FOR RIGHT THIGH PAIN 01/30 PER PATIENT REQUEST, V/S TAKEN BP 160/82, P-92, CONTINUED MONITORING.
--- NOTE | 2018-06-14 13:00 | NUR ---
RN NOTES BS-255 MG/DL, COVERAGE GIVEN, ALSO ADMINISTERED SCHEDULED MEDICATION PATIENT STILL REFUSED TO BE TURN AND REPOSTION. CHARGE NURSE NOTIFIED.
[2018-06-14] MEDS: IV NS 0.9% 1,000 ML IV PRN (14:08)
--- NOTE | 2018-06-14 14:10 | NUR ---
RN NOTES ADMINISTERED NARCO 10/325 MG PO PRN FOR GENERALIZED PAIN 11/29 PER PATIENT REQUEST. V/S TAKEN STABLE, CONTINUED MONITORING.
[2018-06-14] MEDS: GABAPENTIN 400 MG CAPSULE PO SCH ×2 (14:15→17:28)
--- NOTE | 2018-06-14 14:30 | NUR ---
RN NOTES WITH HELP OF 2 LINING MAKER ASSIST TURN PATIENT , PICTURE TAKEN, CHANGE DRESSING ON SACRAL AREA, AND LOWER RIGHT HEEL, AND FOOT DRESSING. SEEN PATIENT WITH DR REYNA. INFUSING NS AT 75 ML/HR, INTACT. CALL LIGHT WITHIN TO REACH, CONTINUED MONITORING.
[2018-06-14 16:00] VITALS: BP 109/87
[2018-06-14] MEDS: NYSTATIN TOP POWDER 15 GM BOTTLE TP SCH (17:28)
[2018-06-14 17:34] LABS: BASOPHILS # (AUTO) 0.1 /CMM (0.0-0.2); BASOPHILS % (AUTO) 0.5 % (0.0-2.0); EOSINOPHILS % (AUTO) 1.2 % (0.0-6.0); HEMATOCRIT 50 % (39-51); HEMOGLOBIN 16.8 g/dL (13.5-17.5); LYMPHOCYTES # (AUTO) 1.4 /CMM (0.8-4.8); LYMPHOCYTES % (AUTO) 13.9 % (20.0-44.0); MEAN CORPUSCULAR HGB CONC 34 g/dl (31.0-36.0); MEAN CORPUSCULAR VOLUME 100 fL (80-96); MONOCYTES # (AUTO) 1.1 /CMM (0.1-1.30); MONOCYTES % (AUTO) 11.4 % (2.0-12.0); NEUTROPHILS # (AUTO) 7.1 /CMM (1.8-8.9); PLATELET COUNT (AUTO) 180 /CMM (150-450); RED BLOOD CELL COUNT(AUTO) 4.98 MIL/uL (4.5-6.0); WHITE BLOOD COUNT (AUTO) 9.7 K/uL (4.3-11.0)
[2018-06-14 17:51] LABS: CALCIUM, SERUM 8.2 mg/dL (8.5-10.1); CREATININE 0.8 mg/dL (0.6-1.3); MAGNESIUM 2.2 mg/dL (1.8-2.4); PHOSPHORUS 3.9 mg/dL (2.5-4.9)
--- NOTE | 2018-06-14 18:30 | NUR ---
RN NOTES BS-114 MG/DL, NO COVERAGE GIVEN, PATIENT STABLE, V/S STABLE, NO ACUTE RESPIRATORY DISTRESSES. SEEN PATIENT BY INFECTION COMPLIANCE INVESTIGATOR. ORDERED SPECIAL MATTRESS. INFUSING NS AT 75ML.HR. CALL LIGHT WITHIN TO REACH. ENDORSED ONCOMING NURSE FOR PLAN OF CARE.
[2018-06-14 18:37] LABS: THYROID STIMULATING HORMONE 1.906 uIU/mL (0.358-3.74)
[2018-06-14 20:00] VITALS: BP 111/51
[2018-06-14] MEDS: ATORVASTATIN 10 MG TABLET PO SCH (21:44)
[2018-06-14] MEDS: INSULIN GLARGINE, 100 UNIT/ML CARTRIDGE SQ SCH (23:15)
[2018-06-14] MEDS: *INSULIN REGULAR(HUMULIN R)HUM 100 UNIT/ML VIAL SQ PRN (23:18)
[2018-06-15] MEDS: NYSTATIN TOP POWDER 15 GM BOTTLE TP SCH ×2 (02:30→15:50)
--- NOTE | 2018-06-15 04:00 | NUR ---
MS RN NOTES PT REFUSED TO BE TURNED AND REPOSITIONED. EXPLAINED TO PT IMPORTANCE OF TURNING & REPOSITIONING IN HIS POC BUT PT STILL REFUSED. WILL CONTINUE TO MONITOR.
[2018-06-15] MEDS: LEVETIRACETAM (250 MG) 250 MG TABLET PO SCH ×3 (05:32→21:41)
[2018-06-15] MEDS: PIPERACILLIN /TAZOBACTAM 3.375 G in IV D5W 50 ML IV SCH ×4 (05:32→23:47)
[2018-06-15] MEDS: BLOOD SUGAR DIAGNOSTIC 1 EACH STRIP VI SCH ×4 (05:57→21:45)
[2018-06-15] MEDS: INSULIN REGULAR, HUMAN 100 UNIT/ML 3 ML VIAL SQ PRN ×3 (05:58→17:18)
--- NOTE | 2018-06-15 06:31 | NUR ---
MS RN NOTES AWAKE & RESPONSIVE. NOT IN ANY DISTRESS. NO SOB NOTED. DENIES ANY PAIN OR DISCOMFORT AT THIS TIME. WITH IVF INFUSING WELL. AM CARE DONE. MONITORED ACCORDINGLY. CALL LIGHT WITHIN REACH. BED IN LOWEST POSITION. SR UP X 3 WITH BED ALARM ON FOR SAFETY. WILL ENDORSE TO NEXT SHIFT.
--- NOTE | 2018-06-15 06:34 | NUR ---
WOUND CARE CONSULT WOUND CARE RECEIVED CONSULT FOR LEFT KNEE CELLULITIS AND MULTIPLE WOUNDS ON ADMISSION. WOUND CARE WILL DEFER CONSULT AND ALL TREATMENT PLANS TO PLASTIC SURGICAL TEAM INCLUDING DPM WHO ARE CURRENTLY FOLLOWING THIS PATIENT. PATIENT WITH LISETH AT 12, ALL PRESSURE ULCER PREVENTION MEASURES ARE NOTED TO BE IN PLACE AT THIS TIME. WILL SEE PRN.
--- NOTE | 2018-06-15 06:59 | NUR ---
MS RN NOTES PT REFUSED LAB DRAW. EXPLAINED TO PT IMPORTANCE OF LAB DRAW IN HIS POC BUT PT STILL REFUSED. WILL CONTINUE TO MONITOR.
[2018-06-15 07:00] VITALS: BP 171/77
--- NOTE | 2018-06-15 07:25 | NUR ---
RN NOTES PATIENT A/OX3, NO APPARENT DISTRESS, BREATHING EVEN AND UNLABORED, NO SOB NOTED, KEPT COMFORTABLE, CALL LIGHT WITHIN REACH, WILL CONTINUE TO MONITOR.
[2018-06-15] MEDS: CADEXOMER IODINE 40 GM TUBE TP SCH (08:57)
[2018-06-15] MEDS: PANTOPRAZOLE 40 MG TABLET.DR PO SCH (09:00)
[2018-06-15] MEDS: GABAPENTIN 400 MG CAPSULE PO SCH ×3 (09:00→17:16)
[2018-06-15] MEDS: HYDROXYUREA 500 MG CAPSULE PO SCH (09:00)
[2018-06-15] MEDS: HEPARIN SODIUM, PORCINE 5000 UNITS/1 ML VIAL SQ SCH ×3 (09:00→21:44)
[2018-06-15] MEDS: FINASTERIDE (5 MG) 5 MG TABLET PO SCH (09:01)
[2018-06-15] MEDS: PHENYTOIN EXTENDED RELEASE 100 MG CAPSULE PO SCH ×2 (09:01→21:41)
[2018-06-15] MEDS: METOPROLOL TARTRATE 25 MG TABLET PO SCH ×2 (09:16→17:16)
[2018-06-15] MEDS: AMLODIPINE BESYLATE 10 MG TABLET PO SCH (09:16)
[2018-06-15 10:15] LABS: CALCIUM, SERUM 8.5 mg/dL (8.5-10.1); POTASSIUM 3.7 mmol/L (3.5-5.1)
[2018-06-15] MEDS: HYDROCODONE/APAP 10/325MG 1 EA TABLET PO PRN (10:16)
--- NOTE | 2018-06-15 10:50 | NUR ---
RN NOTES PATIENT OFFERED TO BE TURNED AND REPOSITIONED MULTIPLE TIMES THIS AM, PATIENT REFUSED, PATIENT WOULD SCREAM WHEN TOUCHED, EXPLAINED RISKS AND BENEFITS, STILL REFUSED. DR. RUIZ AND SALMA HUFF MADE ROUNDS AND MADE AWARE. DR. RUIZ WANTS TO DEBRIDE LEFT KNEE, TELLO JOHNSON CONSENTED TO PROCEDURE VIA PHONE, WITNESSED BY 2 RN'S. PATIENT AWARE OF PLAN.
[2018-06-15] MEDS ORDERED: VANCOMYCIN 1 GM in IV D5W 250 ML IV SCH (11:00)
[2018-06-15] MEDS: IV NS 0.9% 1,000 ML IV PRN (11:24)
--- NOTE | 2018-06-15 13:00 | NUR ---
NAYELI NOTES PATIENT HAD A FORMED BROWN BM. Addendum: 06/15/18 at 1735 by PRAKASH BUSTAMANTE RN CORRECTION: WRONG ENTRY
[2018-06-15] MEDS: HYDROGEL DRESSING 90 GM TUBE TP SCH ×2 (13:35→21:00)
--- NOTE | 2018-06-15 14:00 | NUR ---
NAYELI NOTES PATIENT TRANSFERRED TO RADIOLOGY FOR LUMBAR PUNCTURE, CONSENT SIGNED BY PATIENT. Addendum: 06/15/18 at 1735 by PRAKASH BUSTAMANTE RN CORRECTION: WRONG ENTRY
--- NOTE | 2018-06-15 14:29 | NUR ---
RN NOTES PATIENT REFUSED TURNED AND REPOSITIONED AT THIS TIME, PATIENT WANTS TO WAIT FOR THE TRAPEZE TO BE INSTALLED.
--- NOTE | 2018-06-15 15:46 | NUR ---
RN NOTES PT EVAL COMPLETED, TRAPEZE BED INSTALLED. PATIENT ABLE TO LIFT HIS UPPER BODY FOR PRESSURE RELIEF BY USING HIS RIGHT ARM.
[2018-06-15 16:00] VITALS: BP 159/92
--- NOTE | 2018-06-15 18:37 | NUR ---
RN NOTES PATIENT A/OX4, BREATHING EVEN AND UNLABORED, NAD, PATIENT REFUSED ANY WOUND TREATMENT, TURNING AND REPOSITIONING, DR. RUIZ AND DR. REYNA ARE AWARE, PATIENT IS NON-COMPLIANT. EXPLAINED RISKS AND BENEFITS, PATIENT VERBALIZED UNDERSTANDING. PATIENT VERBALIZES OF INTERMITTENT HIP PAIN. TRAPEZE BED AVAILABLE, BUT PATIENT ONLY ABLE TO LIFT HIMSELF MINIMALLY, MOVE HIS BODY SIDE TO SIDE. NEEDS ATTENDED AND MET, CALL LIGHT WITHIN REACH, WILL ENDORSE TO CITY DESIGNER FOR RACHANA.
[2018-06-15 20:00] VITALS: BP 133/82
[2018-06-15] MEDS: ATORVASTATIN 10 MG TABLET PO SCH (21:41)
[2018-06-15] MEDS: INSULIN GLARGINE, 100 UNIT/ML CARTRIDGE SQ SCH (22:13)
[2018-06-15] MEDS: *INSULIN REGULAR(HUMULIN R)HUM 100 UNIT/ML VIAL SQ PRN (22:14)
[2018-06-15] MEDS: VANCOMYCIN 1 GM in IV D5W 250 ML IV SCH (22:15)
[2018-06-16] MEDS: NYSTATIN TOP POWDER 15 GM BOTTLE TP SCH ×2 (02:30→14:30)
[2018-06-16] MEDS: LEVETIRACETAM (250 MG) 250 MG TABLET PO SCH ×3 (04:39→21:35)
[2018-06-16] MEDS: PIPERACILLIN /TAZOBACTAM 3.375 G in IV D5W 50 ML IV SCH ×3 (05:34→17:59)
[2018-06-16] MEDS: BLOOD SUGAR DIAGNOSTIC 1 EACH STRIP VI SCH ×4 (05:59→21:50)
[2018-06-16] MEDS: INSULIN REGULAR, HUMAN 100 UNIT/ML 3 ML VIAL SQ PRN (05:59)
[2018-06-16 07:10] LABS: *BASOS 0 % (Not Estab.); *EOS 2 % (Not Estab.); *EOS, ABSOLUTE 0.2 x10E3/uL (0.0-0.4); *HCT 49.6 % (37.5-51.0); *IMMATURE GRANULOCYTES 0 % (Not Estab.); *LYMPHOCYTES 17 % (Not Estab.); *LYMPHS, ABSOLUTE 1.7 x10E3/uL (0.7-3.1); *MCH 33.9 pg (26.6-33.0); *MCHC 34.3 g/dL (31.5-35.7); *MCV 99 fL (79-97); *MONOCYTES 8 % (Not Estab.); *MONOS, ABSOLUTE 0.8 x10E3/uL (0.1-0.9); *NEUTROPHILS 73 % (Not Estab.); *NEUTROPHILS, ABSOLUTE 7.5 x10E3/uL (1.4-7.0); *PLT 201 x10E3/uL (150-379); *RBC 5.02 x10E6/uL (4.14-5.80); *RDW 14.2 % (12.3-15.4)
--- NOTE | 2018-06-16 07:30 | NUR ---
m/s casing crew: initial assessment received pt in bed asleep, but easily arousable. no s/s of discomfort. call light within reach. will continue to monitor.
[2018-06-16] MEDS: GABAPENTIN 400 MG CAPSULE PO SCH ×3 (08:37→17:11)
[2018-06-16] MEDS: METOPROLOL TARTRATE 25 MG TABLET PO SCH ×2 (08:37→17:11)
[2018-06-16] MEDS: FINASTERIDE (5 MG) 5 MG TABLET PO SCH (08:37)
[2018-06-16] MEDS: PHENYTOIN EXTENDED RELEASE 100 MG CAPSULE PO SCH ×2 (08:38→21:35)
[2018-06-16] MEDS: PANTOPRAZOLE 40 MG TABLET.DR PO SCH (08:38)
[2018-06-16] MEDS: AMLODIPINE BESYLATE 10 MG TABLET PO SCH (08:38)
[2018-06-16] MEDS: HEPARIN SODIUM, PORCINE 5000 UNITS/1 ML VIAL SQ SCH ×3 (08:39→21:37)
[2018-06-16] MEDS: HYDROXYUREA 500 MG CAPSULE PO SCH (08:40)
--- NOTE | 2018-06-16 09:00 | NUR ---
m/s inbound call center representative: notes pt remains non-compliant in turning and repositioning. also refused am care/bathing when offered. pt easily gets irritated when encouraged. pt still refusing breakfast at this time.
[2018-06-16 09:44] VITALS: BP 148/87
--- NOTE | 2018-06-16 09:49 | NUR ---
m/s delivery table operator: notes trapeze taken out by p.t. and daily weight bxof=753 lbs. put trapeze back together by p.t.
--- NOTE | 2018-06-16 10:00 | NUR ---
m/s life skills worker: notes pt refused wound care and refuses to have his wound assess. pt easily gets irritated and agitated when encouraged and educated. instructed to call for assistance. will monitor.
--- NOTE | 2018-06-16 11:00 | NUR ---
m/s check cashier: notes pt still refuses to be turned and repositioned. instructed to call for assistance. will monitor.
[2018-06-16 11:20] LABS: CALCIUM, SERUM 8.7 mg/dL (8.5-10.1); CREATININE 0.8 mg/dL (0.6-1.3); POTASSIUM 3.2 mmol/L (3.5-5.1)
--- NOTE | 2018-06-16 12:00 | NUR ---
m/s metallurgical lab technician: md visit seen by dr. rahman.
[2018-06-16 12:03] LABS: *% CD 4 POS. LYMPH 47.8 % (30.8-58.5); *% CD 8 POS. LYMPH 23.4 % (12.0-35.5); *ABSOLUTE CD 4 HELPER 813 /uL (359-1519); *ABSOLUTE CD 8 SUPPRESSOR 398 /uL (109-897); *CD4/CD8 RATIO 2.04 (0.92-3.72)
--- NOTE | 2018-06-16 12:20 | NUR ---
m/s chief operations officer: podiatry f/u dr. Martinez here and made aware re: refusing wound tx and repositioning with no new order.
[2018-06-16] MEDS: IV NS 0.9% 1,000 ML IV PRN (12:45)
--- NOTE | 2018-06-16 13:00 | NUR ---
m/s stamping machine operator: notes pt refused afternoon care when offered. still refuses to be repositioned. pt gets easily irritated and upset when encouraged. instructed to call for assistance.
[2018-06-16] MEDS: VANCOMYCIN 1 GM in IV D5W 250 ML IV SCH (13:03)
[2018-06-16] MEDS: HYDROCODONE/APAP 10/325MG 1 EA TABLET PO PRN (13:31)
--- NOTE | 2018-06-16 15:00 | NUR ---
m/s office clerk: notes brother visiting at this time. pt still refuses bed bath/clean. also refuses to be repositioned. pt also refuses wound tx when offered. call light within reach. will continue to monitor.
[2018-06-16] MEDS: HYDROGEL DRESSING 90 GM TUBE TP SCH ×2 (15:17→21:36)
[2018-06-16] MEDS: CADEXOMER IODINE 40 GM TUBE TP SCH (15:17)
[2018-06-16] MEDS: HYDROCODONE/APAP 5/325MG 1 EACH TABLET PO PRN (15:40)
[2018-06-16 16:20] VITALS: BP 115/71
[2018-06-16] MEDS ORDERED: POTASSIUM CHLORIDE 20 MEQ TAB.PRT.SR PO SCH (16:30)
--- NOTE | 2018-06-16 17:00 | NUR ---
m/s protective services officer: notes tx done to left knee wound, but unable to do sacral wound tx due to unable to keep in one position, pt gets angry and verbally abusive with care. pt refusing to be on one side, pt prefers to lay on his back. instructed to call for assistance. will continue to monitor.
--- NOTE | 2018-06-16 18:15 | NUR ---
m/s tree surgeon helper: notes friend visiting at this time. pt still having his dinner. needs attended. instructed to call for assistance. will continue to monitor.
--- NOTE | 2018-06-16 19:00 | NUR ---
m/s railcar switcher: notes report given to danilo (court) for continuity of care.
--- NOTE | 2018-06-16 19:50 | NUR ---
MS RN NOTE: PATIENT RESTING IN BED, NO ACUTE DISTRESS NOTED. BREATHING EVEN AND UNLABORED, NO SOB NOTED. IV TO RIGHT HAND IN PLACE, INFUSING NS AT 75ML/HR. NO S/S HYPER/HYPOGLYCEMIA NOTED. BED LOCKED AND IN LOWEST POSITION, CALL LIGHT IN REACH, WILL CONTINUE TO MONITOR.
[2018-06-16 20:00] VITALS: BP 128/81
[2018-06-16] MEDS: ATORVASTATIN 10 MG TABLET PO SCH (21:35)
[2018-06-16] MEDS: INSULIN GLARGINE, 100 UNIT/ML CARTRIDGE SQ SCH (21:52)
[2018-06-16] MEDS: *INSULIN REGULAR(HUMULIN R)HUM 100 UNIT/ML VIAL SQ PRN (21:53)
[2018-06-16] MEDS: VANCOMYCIN 0.75 GM in IV D5W 250 ML IV SCH (22:13)
--- NOTE | 2018-06-16 22:15 | NUR ---
MS RN NOTE: PATIENT BLOOD SUGAR LEVEL 132MG/DL, PATIENT TO RECEIVE 68 UNITS OF LANTUS PER MD ORDER AND 2 UNITS OF INSULIN PER SLIDING SCALE. NO S/S OF HYPER/HYPOGLYCEMIA NOTED, SNACKS AT BEDSIDE. WILL CONTINUE TO MONITOR.
[2018-06-17] MEDS ORDERED: MENTHOL/CETYLPYRD (CEPACOL) 1 LOZ LOZENGE PO PRN
[2018-06-17] MEDS: PIPERACILLIN /TAZOBACTAM 3.375 G in IV D5W 50 ML IV SCH ×2 (00:23→05:08)
[2018-06-17] MEDS: NYSTATIN TOP POWDER 15 GM BOTTLE TP SCH ×2 (02:30→14:00)
[2018-06-17] MEDS: LEVETIRACETAM (250 MG) 250 MG TABLET PO SCH ×3 (05:08→22:10)
[2018-06-17] MEDS: IV NS 0.9% 1,000 ML IV PRN (05:09)
[2018-06-17] MEDS: HYDROCODONE/APAP 10/325MG 1 EA TABLET PO PRN (06:10)
--- NOTE | 2018-06-17 06:30 | NUR ---
MS RN NOTE: PATIENT RESTING IN BED, NO ACUTE DISTRESS NOTED. BREATHING EVEN AND UNLABORED, NO SOB NOTED. IV TO RIGHT HAND IN PLACE, INFUSING NS AT 75ML/HR. IV TO CATHIE DISLODGED, REMOVED COVERED WITH GAUZE, PRESSURE APPLIED AND SECURED WITH TAPE. PATIENT BLOOD SUGAR LEVEL 95MG/DL, NO INSULIN NEEDED PER SLIDING SCALE, NO S/S HYPER/HYPOGLYCEMIA NOTED. BED LOCKED AND IN LOWEST POSITION, CALL LIGHT IN REACH, WILL ENDORSE TO DAY NURSE TO CONTINUE WITH PLAN OF CARE.
[2018-06-17] MEDS: BLOOD SUGAR DIAGNOSTIC 1 EACH STRIP VI SCH ×4 (07:14→22:58)
--- NOTE | 2018-06-17 07:15 | NUR ---
RN OPENING NOTES RECEIVED PT. IN BED A&OX2, SPEECH IS QUIET AND DELAYED. BREATHING UNLABORED, AND EVENLY ON ROOM AIR. NO S/S OF ACUTE DISTRESS. IV FLUIDS RUNNING AT 75 ML/HR. PT. HAS A TRAPEZE TO ASSIST IN UPPER BODY MOBILITY. BED IS IN LOWEST, AND LOCKED POSITION. URINAL IS WITHIN REACH. INSTRUCTED PT. TO USE CALL LIGHT FOR ASSISTANCE. ALL NEEDS MET. WILL CONTINUE TO ASSESS AND MONITOR.
[2018-06-17 07:44] LABS: CALCIUM, SERUM 8.1 mg/dL (8.5-10.1); CREATININE 1.4 mg/dL (0.6-1.3); POTASSIUM 3.6 mmol/L (3.5-5.1)
[2018-06-17] MEDS: PANTOPRAZOLE 40 MG TABLET.DR PO SCH (07:55)
[2018-06-17 08:00] VITALS: BP 124/74
[2018-06-17] MEDS: PHENYTOIN EXTENDED RELEASE 100 MG CAPSULE PO SCH ×2 (10:30→22:10)
[2018-06-17] MEDS: AMLODIPINE BESYLATE 10 MG TABLET PO SCH (10:31)
[2018-06-17] MEDS: METOPROLOL TARTRATE 25 MG TABLET PO SCH ×2 (10:31→16:57)
[2018-06-17] MEDS: FINASTERIDE (5 MG) 5 MG TABLET PO SCH (10:31)
[2018-06-17] MEDS: GABAPENTIN 400 MG CAPSULE PO SCH ×3 (10:31→16:57)
[2018-06-17] MEDS: HYDROXYUREA 500 MG CAPSULE PO SCH (10:32)
[2018-06-17] MEDS: HEPARIN SODIUM, PORCINE 5000 UNITS/1 ML VIAL SQ SCH ×2 (10:32→22:12)
[2018-06-17] MEDS: CADEXOMER IODINE 40 GM TUBE TP SCH (10:34)
[2018-06-17] MEDS: HYDROGEL DRESSING 90 GM TUBE TP SCH ×2 (10:34→21:00)
[2018-06-17] MEDS: VANCOMYCIN 0.75 GM in IV D5W 250 ML IV SCH ×2 (10:59→23:00)
[2018-06-17] MEDS: INSULIN REGULAR, HUMAN 100 UNIT/ML 3 ML VIAL SQ PRN ×2 (12:35→17:37)
[2018-06-17 16:06] VITALS: BP 131/82
[2018-06-17] MEDS: HYDROCODONE/APAP 5/325MG 1 EACH TABLET PO PRN (16:58)
--- NOTE | 2018-06-17 19:09 | NUR ---
RN OPENING NOTES PT. IS IN BED A&OX2, SPEECH IS QUIET AND DELAYED. BREATHING UNLABORED, AND EVENLY ON ROOM AIR, SPO2 94%. NO S/S OF ACUTE DISTRESS. IV FLUIDS RUNNING AT 75 ML/HR. PT. HAS A TRAPEZE TO ASSIST IN UPPER BODY MOBILITY. BED IS IN LOWEST, AND LOCKED POSITION. URINAL IS WITHIN REACH. INSTRUCTED PT. TO USE CALL LIGHT FOR ASSISTANCE. ALL NEEDS MET. WILL ENDORSE REPORT TO NURSE. Addendum: 06/17/18 at 1910 by HIGINIO RAINES RN CLOSING NOTES ABOVE
[2018-06-17 20:00] VITALS: BP 127/83
[2018-06-17] MEDS: INSULIN GLARGINE, 100 UNIT/ML CARTRIDGE SQ SCH (22:00)
[2018-06-17] MEDS: ATORVASTATIN 10 MG TABLET PO SCH (22:10)
--- NOTE | 2018-06-17 23:15 | NUR ---
MS RN NOTE: PATIENT BLOOD SUGAR LEVEL 107MG/DL, NO INSULIN GIVEN PER SLIDING SCALE. LANTUS HELD DUE TO LOW BLOOD SUGAR. NO S/S OF HYPOGLYCEMIA NOTED. SNACKS PROVIDED AT BEDSIDE. WILL CONTINUE TO MONITOR.
--- NOTE | 2018-06-17 23:20 | NUR ---
MS RN NOTE: PATIENT VANCO TROUGH IS 31, VANCOMYCIN DOSE HELD FOR TONIGHT. WILL CONTINUE TO MONITOR.
[2018-06-18] MEDS: NYSTATIN TOP POWDER 15 GM BOTTLE TP SCH ×2 (02:23→14:13)
[2018-06-18] MEDS: IV NS 0.9% 1,000 ML IV PRN (03:19)
[2018-06-18] MEDS: LEVETIRACETAM (250 MG) 250 MG TABLET PO SCH ×3 (05:35→21:20)
[2018-06-18] MEDS: BLOOD SUGAR DIAGNOSTIC 1 EACH STRIP VI SCH ×4 (06:35→21:13)
--- NOTE | 2018-06-18 06:35 | NUR ---
MS RN NOTE: PATIENT RESTING IN BED, NO ACUTE DISTRESS NOTED. BREATHING EVEN AND UNLABORED, NO SOB NOTED. IV TO RIGHT HAND IN PLACE, INFUSING NS AT 75ML/HR. PATIENT BLOOD SUGAR LEVEL 124MG/DL, NO INSULIN NEEDED PER SLIDING SCALE, NO S/S HYPER/HYPOGLYCEMIA NOTED. BED LOCKED AND IN LOWEST POSITION, CALL LIGHT IN REACH, WILL ENDORSE TO DAY NURSE TO CONTINUE WITH PLAN OF CARE.
[2018-06-18 08:00] VITALS: BP 157/84
[2018-06-18 08:00] LABS: BASOPHILS # (AUTO) 0.1 /CMM (0.0-0.2); BASOPHILS % (AUTO) 0.5 % (0.0-2.0); HEMATOCRIT 49 % (39-51); HEMOGLOBIN 16.7 g/dL (13.5-17.5); LYMPHOCYTES # (AUTO) 1.6 /CMM (0.8-4.8); MEAN CORPUSCULAR HGB CONC 34 g/dl (31.0-36.0); MEAN CORPUSCULAR VOLUME 99 fL (80-96); MONOCYTES # (AUTO) 0.9 /CMM (0.1-1.30); MONOCYTES % (AUTO) 8.3 % (2.0-12.0); NEUTROPHILS # (AUTO) 8.4 /CMM (1.8-8.9); NEUTROPHILS % (AUTO) 75.2 % (43.0-81.0); PLATELET COUNT (AUTO) 188 /CMM (150-450); RED BLOOD CELL COUNT(AUTO) 4.95 MIL/uL (4.5-6.0); WHITE BLOOD COUNT (AUTO) 11.1 K/uL (4.3-11.0)
--- NOTE | 2018-06-18 08:00 | NUR ---
RN NOTES RECEIVED PATIENT IN THE BED A/O X3, SLOW SLURRED SPEECH. PATIENT HAS NO ACUTE RESPIRATORY DISTRESS, BED BOUND. SCHEDULED MEDICATION ADMINISTERED, V/S STABLE, PATIENT REFUSED TO TURN AND REPOSTION, VERBALLY ABUSIVE, NEEDS ATTENDED AND ANTICIPATED, PATIENT USING URINAL. CALL LIGHT WITHIN TO REACH. SAFETY PRECAUTION MAINTAINED ALL THE TIME.
[2018-06-18 08:19] LABS: CALCIUM, SERUM 8.9 mg/dL (8.5-10.1); CREATININE 1.3 mg/dL (0.6-1.3); MAGNESIUM 2.3 mg/dL (1.8-2.4); POTASSIUM 3.5 mmol/L (3.5-5.1)
[2018-06-18] MEDS: PANTOPRAZOLE 40 MG TABLET.DR PO SCH (10:11)
[2018-06-18] MEDS: FINASTERIDE (5 MG) 5 MG TABLET PO SCH (10:12)
[2018-06-18] MEDS: AMLODIPINE BESYLATE 10 MG TABLET PO SCH (10:12)
[2018-06-18] MEDS: PHENYTOIN EXTENDED RELEASE 100 MG CAPSULE PO SCH ×2 (10:12→21:19)
[2018-06-18] MEDS: HYDROGEL DRESSING 90 GM TUBE TP SCH ×2 (10:13→21:20)
[2018-06-18] MEDS: METOPROLOL TARTRATE 25 MG TABLET PO SCH ×2 (10:13→17:10)
[2018-06-18] MEDS: GABAPENTIN 400 MG CAPSULE PO SCH ×3 (10:13→17:09)
[2018-06-18] MEDS: CADEXOMER IODINE 40 GM TUBE TP SCH (10:14)
[2018-06-18] MEDS: HYDROXYUREA 500 MG CAPSULE PO SCH (10:16)
[2018-06-18] MEDS: HEPARIN SODIUM, PORCINE 5000 UNITS/1 ML VIAL SQ SCH ×2 (10:25→21:22)
[2018-06-18] MEDS: HYDROCODONE/APAP 10/325MG 1 EA TABLET PO PRN ×3 (10:36→22:20)
--- NOTE | 2018-06-18 10:36 | NUR ---
rn notes administered narco 5/325 mg po prn two tabs for generalized pain 01/30 per patient request. v/s taken bp- 156/84, p-91, continued monitoring.
--- NOTE | 2018-06-18 12:00 | NUR ---
RN NOTES BS-210 MG/DL, COVERAGE GIVE, MED COMPLIANT, V/S STABLE, MEDICATION WERE ADMINISTERED FOR PAIN EFFECTIVE. FAMILY NEXT TO THE BED. PATIENT USING BED TRAPEZE. FAMILY NEXT TO THE BED. CALL LIGHT WITHIN TO REACH. CONTINUED MONITORING. DRESSING, CHANGED, USING PILLOWS TO POSITION.
[2018-06-18] MEDS: INSULIN REGULAR, HUMAN 100 UNIT/ML 3 ML VIAL SQ PRN ×2 (14:02→19:00)
[2018-06-18 16:00] VITALS: BP 141/74
--- NOTE | 2018-06-18 17:09 | NUR ---
RN NOTES ADMINISTERED NARCO 10/325 MG PO PRN FOR GENERALIZED PAIN 12/30 PER PATIENT REQUEST. V/S STABLE CONTINUED MONITORING.
[2018-06-18] MEDS: PIPERACILLIN /TAZOBACTAM 3.375 G in IV D5W 50 ML IV SCH ×2 (18:17→23:04)
--- NOTE | 2018-06-18 18:30 | NUR ---
RN NOTES BS-212 MG/DL COVERAGE GIVEN, NO ACUTE RESPIRATORY DISTRESS, SCHEDULED MEDICATION ADMINISTERED, NEEDS ATTENDED AND ANTICIPATED. INFUSING RIGHT AC ZOCIN 100 ML/HR INTACT. ENDORSED ONCOMING NURSE FOR PLAN OF CARE. MEDICATION WERE ADMINISTERED EFFECTIVE.
--- NOTE | 2018-06-18 19:34 | NUR ---
MS NAYELI OPENING NOTES: RECEIVED PT ON ROOM AIR AND IS TOLERATING WELL. PT IS A/OX2 WITH SLOW, SLURRED SPEECH. PT EATING SNACKS AT THIS TIME. PT HAS IV ON R AC #22G AND IS BEING INFUSED WITH IV NS AT 75ML/HR. BED KEPT IN LOW, LOCKED POSITION, AND SIDE RAILS X 2UP. WILL CONTINUE TO MONITOR PT.
[2018-06-18 20:00] VITALS: BP 124/74
[2018-06-18] MEDS: INSULIN GLARGINE, 100 UNIT/ML CARTRIDGE SQ SCH (21:13)
--- NOTE | 2018-06-18 21:14 | NUR ---
MS RN NOTES: BLOOD SUGAR THIS PM WAS 109. LANTUS 68 UNITS HELD. NO INSULIN WAS ADMINISTERED.
[2018-06-18] MEDS: ATORVASTATIN 10 MG TABLET PO SCH (21:20)
--- NOTE | 2018-06-18 22:26 | NUR ---
MS RN NOTES: PT COMPLAINING OF 8/10 GENERALIZED PAIN. PT WAS ADMINISTERED NORCO 10 PO. WILL CONTINUE TO MONITOR.
[2018-06-19] MEDS: NYSTATIN TOP POWDER 15 GM BOTTLE TP SCH ×2 (01:52→15:57)
[2018-06-19] MEDS: PIPERACILLIN /TAZOBACTAM 3.375 G in IV D5W 50 ML IV SCH ×2 (05:02→12:50)
[2018-06-19] MEDS: LEVETIRACETAM (250 MG) 250 MG TABLET PO SCH ×2 (05:05→12:58)
[2018-06-19] MEDS: HYDROCODONE/APAP 10/325MG 1 EA TABLET PO PRN ×3 (06:01→17:07)
[2018-06-19] MEDS: BLOOD SUGAR DIAGNOSTIC 1 EACH STRIP VI SCH ×3 (06:02→16:22)
--- NOTE | 2018-06-19 06:09 | NUR ---
MS RN NOTES: PT COMPLAINING OF 10/10 GENERALIZED PAIN AFTER ATTEMPTING TO TURN HIM AND CHECK HIS SACRAL AREA. PT WAS ADMINISTERED NORCO 10 PO. PT REFUSING TO BE TURNED AND HAVE HIS PHOTOS TAKEN FROM BEHIND HE CANNOT TOLERATE IT. PT REFUSING AND SCREAMING. EXPLAINED TO PT THE IMPORTANCE OF HAVING HIS DRESSING CHANGE IN HIS SACRAL AREA AND ASSESSED. PT REFUSING.
[2018-06-19] MEDS: INSULIN REGULAR, HUMAN 100 UNIT/ML 3 ML VIAL SQ PRN ×2 (06:51→13:05)
--- NOTE | 2018-06-19 07:25 | NUR ---
MS RN CLOSING NOTES: PT ASLEEP AT THIS TIME. PT REFUSED TO BE TURNED AND REPOSITIONED HE CANNOT TOLERATE IT. EXPLAINED TO PT THE IMPORTANCE BUT PT STILL REFUSING AND SAID IT IS TOO PAINFUL EVEN WITH PAIN MEDS OFFERED. WAS ONLY ABLE TO DO CERTAIN SKIN ASSESSMENT PT REFUSING SOME AREAS. WAS ABLE TO DO WOUND TX ON L KNEE. PT REMAINS SLURRED/SLOW SPEECH BUT IS ABLE TO MAKE NEEDS KNOWN. PT HAS IV ON R AC #22G AND IS BEING INFUSED WITH IV NS AT 75ML/HR. NO INSULIN WAS ADMINISTERED THIS AM BLOOD SUGAR WAS 125. ENDORSED TO AM NURSE FOR RACHANA. Addendum: 06/19/18 at 0727 by WESTLEY BARRETO RN DRESSING REMAINS CLEAN AND DRY ON L KNEE AND L FOOT.
[2018-06-19 07:54] LABS: CALCIUM, SERUM 8.6 mg/dL (8.5-10.1); CREATININE 1.5 mg/dL (0.6-1.3); POTASSIUM 3.1 mmol/L (3.5-5.1)
[2018-06-19 08:00] VITALS: BP 112/71
--- NOTE | 2018-06-19 08:00 | NUR ---
RN NOTES RECEIVED PATIENT IN THE BED A/O X2/3,, PATIENT V/S STABLE, SCHEDULED MEDICATION ADMINISTERED. ENCOURAGED TO EXPRESS FEELINGS AND CONCERNS. PATIENT HAS NO ACUTE RESPIRATORY DISTRESS. PAINTED BED BOUND, REFUSED TURN AND REPOSTION. PATIENT WAS USING URINAL, CALL LIGHT WITHIN TO REACH, SAFETY PRECAUTION MAINTAINED ALL THE TIME.
[2018-06-19] MEDS: HYDROXYUREA 500 MG CAPSULE PO SCH (08:57)
[2018-06-19] MEDS: PHENYTOIN EXTENDED RELEASE 100 MG CAPSULE PO SCH (08:57)
[2018-06-19] MEDS: GABAPENTIN 400 MG CAPSULE PO SCH ×3 (08:57→16:21)
[2018-06-19] MEDS: PANTOPRAZOLE 40 MG TABLET.DR PO SCH (08:58)
[2018-06-19] MEDS: FINASTERIDE (5 MG) 5 MG TABLET PO SCH (08:58)
[2018-06-19] MEDS: AMLODIPINE BESYLATE 10 MG TABLET PO SCH (08:58)
[2018-06-19] MEDS: HYDROGEL DRESSING 90 GM TUBE TP SCH (09:00)
[2018-06-19] MEDS: CADEXOMER IODINE 40 GM TUBE TP SCH (09:01)
[2018-06-19] MEDS: HEPARIN SODIUM, PORCINE 5000 UNITS/1 ML VIAL SQ SCH (09:02)
[2018-06-19] MEDS: METOPROLOL TARTRATE 25 MG TABLET PO SCH ×2 (09:05→16:22)
[2018-06-19] MEDS ORDERED: POTASSIUM CHLORIDE 20 MEQ POWDER PACKET PO ONE (09:30)
--- NOTE | 2018-06-19 12:58 | NUR ---
RN NOTES ADMINISTERED NARCO 10/325 MG PO PRN FOR GENERALIZED PAIN 12/30 PER PATIENT REQUEST, V/S TAKEN BP 121/76, P-90, CONTINUED MONITORING.
[2018-06-19] MEDS ORDERED: VANCOMYCIN 0.75 GM in IV D5W 250 ML IV SCH (13:00)
--- NOTE | 2018-06-19 13:07 | NUR ---
RN NOTES PATIENT GOING TO D/C BACK TO SNF.
[2018-06-19 16:00] VITALS: BP 133/81
[2018-06-19 16:22] VITALS: BP 133/81
--- NOTE | 2018-06-19 17:07 | NUR ---
rn notes administered narco 10/325 mg po prn for generalized pain 12/30 per patient request, v/s taken bp 133/71, p98, continued monitoring.
--- NOTE | 2018-06-19 18:45 | NUR ---
DISCHARGE NOTES PATIENT DISCHARGE AT THIS TIME GOING BACK TO SNF. MED RECONCILIATION AND DISCHARGE ORDER REVIEWED AND EXPLAINED TO. PATIENT STABLE, V/S STABLE, PAIN MEDICATION WERE ADMINISTERED EFFECTIVE, NO ACUTE RESPIRATORY DISTRESS. REPORT GIVEN SNF RN . RN VERBALIZED UNDERSTANDING. PATIENT HAS NO BELONGING, REFUSED SIGN PAPERWORK. PATIENT BROTHER AWARE OF DISCHARGE PLANING. PATIENT WILL FOLLOW SNF BANK CREDIT CARD COLLECTION CLERK. PATIENT OPENER BY AMBULANCE.
== END 2018-06-19 18:15 | DRG 579 ==
LOC: ER 16:01 → MED 19:04
PROC: 0KBT0ZZ Excision of Left Lower Leg Muscle, Open Approach (ICD-10-PCS; principal; 2018-06-15)
PROC: 05H533Z Insertion of Infusion Device into Right Subclavian Vein, Percutaneous Approach (ICD-10-PCS; 2018-06-19)
PROC: B546ZZA Ultrasonography of Right Subclavian Vein, Guidance (ICD-10-PCS; 2018-06-19)
DX: S81.002A Unspecified open wound, left knee, initial encounter (principal); L89.154 Pressure ulcer of sacral region, stage 4; L03.116 Cellulitis of left lower limb; G93.49 Other encephalopathy; M86.9 Osteomyelitis, unspecified; R78.81 Bacteremia; N17.9 Acute kidney failure, unspecified; J96.10 Chronic respiratory failure, unspecified whether with hypoxia or hypercapnia; G82.20 Paraplegia, unspecified; R65.10 Systemic inflammatory response syndrome (SIRS) of non-infectious origin without acute organ dysfunction; L97.428 Non-pressure chronic ulcer of left heel and midfoot with other specified severity; L03.115 Cellulitis of right lower limb; D45 Polycythemia vera; E11.621 Type 2 diabetes mellitus with foot ulcer; E11.69 Type 2 diabetes mellitus with other specified complication; E11.622 Type 2 diabetes mellitus with other skin ulcer; E11.42 Type 2 diabetes mellitus with diabetic polyneuropathy; L97.529 Non-pressure chronic ulcer of other part of left foot with unspecified severity; M24.562 Contracture, left knee; L30.4 Erythema intertrigo; B95.2 Enterococcus as the cause of diseases classified elsewhere; E78.5 Hyperlipidemia, unspecified; G40.909 Epilepsy, unspecified, not intractable, without status epilepticus; I11.0 Hypertensive heart disease with heart failure; I50.9 Heart failure, unspecified; I67.9 Cerebrovascular disease, unspecified; Z74.01 Bed confinement status; N40.0 Benign prostatic hyperplasia without lower urinary tract symptoms; Z86.73 Personal history of transient ischemic attack (TIA), and cerebral infarction without residual deficits; Z87.820 Personal history of traumatic brain injury; Z98.2 Presence of cerebrospinal fluid drainage device; Z79.4 Long term (current) use of insulin; Z79.899 Other long term (current) drug therapy; I25.10 Atherosclerotic heart disease of native coronary artery without angina pectoris; M85.80 Other specified disorders of bone density and structure, unspecified site; M24.542 Contracture, left hand
CPT/HCPCS: 36415; 36569; 71045-TC; 73502; 73562; 80048-TC; 80061-TC; 80202-TC; 82962-TC; 83605-TC; 83735-TC; 84100-TC; 84443-TC; 85025-TC; 86360; 86701; 87040-TC; 87081-TC; 87186-TC; 93307-TC; 93971-TC; A6248; A6253; A6402; A6403; G0378; J1644; J1815; J2543; J3370; J7030; J7060

== ENCOUNTER 2018-07-06 09:37 | Inpatient (IN) | payer MEDICARE, MEDICAID ==
[~2018-07-06] VITALS: Ht 167.6 cm; Wt 72.1 kg
[~2018-07-06 09:37] MED LIST changes: -ARGI1POW13 PO; -BENEFIBER PO; +BIOT5TAB PO; -DIPH25CA6 PO; -HEPA10009 SQ; +HEPA50008 SQ; +NEPA3DRO EACHEYE; +PANT20TA3 PO; -PANT40TA2 PO; -PIPERACILLIN /TAZOBACTAM 3.375 G in IV D5W 50 ML IV SCH; +VITA100014 PO
--- NOTE | 2018-07-06 10:00 | NUR ---
PATIENT CAME FROM SNF, C/O LEG PAIN AND HIP PAIN.
[2018-07-06 10:34] LABS: BASOPHILS # (AUTO) 0.1 /CMM (0.0-0.2); BASOPHILS % (AUTO) 0.4 % (0.0-2.0); EOSINOPHILS % (AUTO) 0.9 % (0.0-6.0); HEMATOCRIT 43 % (39-51); HEMOGLOBIN 14.6 g/dL (13.5-17.5); LYMPHOCYTES # (AUTO) 1.7 /CMM (0.8-4.8); LYMPHOCYTES % (AUTO) 12.8 % (20.0-44.0); MEAN CORPUSCULAR HGB CONC 34 g/dl (31.0-36.0); MEAN CORPUSCULAR VOLUME 99 fL (80-96); MONOCYTES # (AUTO) 0.9 /CMM (0.1-1.30); MONOCYTES % (AUTO) 6.5 % (2.0-12.0); NEUTROPHILS # (AUTO) 10.3 /CMM (1.8-8.9); NEUTROPHILS % (AUTO) 79.4 % (43.0-81.0); PLATELET COUNT (AUTO) 226 /CMM (150-450); RED BLOOD CELL COUNT(AUTO) 4.39 MIL/uL (4.5-6.0)
[2018-07-06] MEDS ORDERED: ZINC220C8 PO (10:41)
[2018-07-06] MEDS ORDERED: HYDR4TAB57 PO (10:41)
[2018-07-06] MEDS ORDERED: OMEP20CA10 PO (10:41)
[2018-07-06] MEDS ORDERED: MAG30ORA PO (10:41)
[2018-07-06 10:44] LABS: CALCIUM, SERUM 8.4 mg/dL (8.5-10.1); CREATININE 0.9 mg/dL (0.6-1.3)
[2018-07-06] MEDS ORDERED: BENZ1LOZ12 MM (10:45)
--- NOTE | 2018-07-06 12:25 | NUR ---
PANEL ON-CALL PAGED
--- NOTE | 2018-07-06 12:41 | NUR ---
PAGING PANEL ON-CALL
[2018-07-06] MEDS ORDERED: MAGNESIUM HYDROXIDE 30 ML UDC PO PRN ×2 (13:30)
[2018-07-06] MEDS ORDERED: ACETAMINOPHEN 325 MG TABLET PO PRN ×2 (13:30)
[2018-07-06] MEDS ORDERED: MAG HYDROX/AL HYDROX/SIMETH 30 ML UDC PO PRN ×2 (13:30)
[2018-07-06] MEDS ORDERED: ONDANSETRON HCL/PF 4 MG/2 ML VIAL IVP PRN (13:30)
[2018-07-06] MEDS ORDERED: BISACODYL SUPP (10 MG) 10 MG/SUPP.RECT SUPP.RECT RC PRN (13:30)
[2018-07-06] MEDS ORDERED: ZOLPIDEM TARTRATE 5 MG TABLET PO PRN (13:30)
[2018-07-06] MEDS ORDERED: INSULIN REGULAR, HUMAN 100 UNIT/ML 3 ML VIAL SQ PRN (13:30)
[2018-07-06] MEDS ORDERED: Z GUARD REMEDY 2 OZ OINT TP PRN (13:30)
--- NOTE | 2018-07-06 13:35 | NUR ---
REPORT GIVEN TO NI TYLER FOR CONTINUITY OF CARE.
[2018-07-06] MEDS ORDERED: MENTHOL/CETYLPYRD (CEPACOL) 1 LOZ LOZENGE PO PRN (14:00)
[2018-07-06 14:30] VITALS: BP 110/83
--- NOTE | 2018-07-06 14:30 | NUR ---
RECEIVED PATIENT FROM ER. PATIENT AWAKE, A/OX2-3, ABLE TO MAKE NEEDS KNOW. NOT IN ANY FORM OF DISTRESS. NO SOB, TOLERATING ROOM AIR WELL, SATTING 95%. IV ACCES ON RIGHT UPPER ARM. PATIENT WITH MULTIPLE WOUNDS NOTED, WOUND CONSULT ORDERED. PATIENT IS PARAPLEGIC. LEFT LOWER EXTREMITY CONTRACTED. CHANGED PATIENTS GOWN AND CLEANED HIM. KEPT PATIENT SAFE AND COMFORTABLE. BED IN LOW/LOCKED POSITION, SIDERAILS UP, CALL LIGHT IN REACH. WILL CONTINUE TO MONIOTR ACCORDINGLY.
[2018-07-06] MEDS: HYDROXYUREA 500 MG CAPSULE PO SCH (15:58)
[2018-07-06] MEDS: FINASTERIDE (5 MG) 5 MG TABLET PO SCH (15:58)
[2018-07-06] MEDS: BLOOD SUGAR DIAGNOSTIC 1 EACH STRIP IN SCH ×3 (15:58→22:52)
[2018-07-06] MEDS: ATORVASTATIN 10 MG TABLET PO SCH ×2 (15:58→22:51)
[2018-07-06] MEDS: AMLODIPINE BESYLATE 10 MG TABLET PO SCH (15:59)
[2018-07-06] MEDS: LEVETIRACETAM (250 MG) 250 MG TABLET PO SCH ×2 (15:59→22:52)
[2018-07-06 16:00] VITALS: BP 109/80
[2018-07-06] MEDS: PHENYTOIN EXTENDED RELEASE 100 MG CAPSULE PO SCH ×2 (16:00→22:51)
[2018-07-06] MEDS: METOPROLOL TARTRATE 25 MG TABLET PO SCH ×2 (16:01→17:00)
[2018-07-06] MEDS: IV NS 0.9% 1,000 ML IV PRN (16:02)
[2018-07-06] MEDS: HEPARIN SODIUM, PORCINE 5000 UNITS/1 ML VIAL SQ SCH ×2 (16:03→21:00)
[2018-07-06] MEDS: GABAPENTIN 400 MG CAPSULE PO SCH (16:04)
[2018-07-06] MEDS: ASCORBIC ACID 500 MG TABLET PO SCH (16:04)
[2018-07-06] MEDS: HYDROCODONE/APAP 5/325MG 1 EACH TABLET PO PRN (18:32)
--- NOTE | 2018-07-06 19:10 | NUR ---
RN CLOSING NOTES PATIENT IN STABLE CONDITION. ALL NEEDS ATTENDED AND PROVIDED. ALL DUE MEDICATIONS GIVEN ORDERED. KEPT PATIENT SAFE AND COMFORTABLE. BED IN LOW/LOCKED POSITION, SIDERAILS UP, BED ALARM ON. CALL LIGHT IN REACH. ENDORSED TO NIGHT RN FOR RACHANA
[2018-07-06 20:00] VITALS: BP 118/75
[2018-07-06] MEDS: HYDROMORPHONE HCL 2 MG TABLET PO PRN (21:11)
--- NOTE | 2018-07-06 21:16 | NUR ---
MS/RN C/O RT. THIGH PAIN 12/30, DILAUDID PO WAS GIVEN ORDERED. PATIENT REFUSED TO HAVE BED ELEVATED WHEN SWALLOWING MED, EDUCATED ON RISK OF SWALLOWING WHILE LYING FLAT, PATIENT VERBALIZED UNDERSTANDING DOES LISTEN.
--- NOTE | 2018-07-06 22:00 | NUR ---
MS/RN PATIENT REFUSED SKIN ASSESSMENT.
--- NOTE | 2018-07-06 22:22 | NUR ---
MS/RN PATIENT IS SLEEPING AT THIS TIIME, UNABLE TO GIVE DUE MEDS. WILL ADMIN LATER WHEN FULLY AWAKE.
[2018-07-06] MEDS: INSULIN GLARGINE, 100 UNIT/ML CARTRIDGE SQ SCH (23:26)
--- NOTE | 2018-07-06 23:43 | NUR ---
MS/RN BLOOD SUGAR 102, PER SERGIO KNOWLES DNP, OK TO GIVE LANTUS 68 UNITS. PATIENT ONLY TOOK 50 UNITS. SNACK WAS GIVEN.
--- NOTE | 2018-07-07 00:24 | NUR ---
MS/RN PATIENT IS SLEEPING AT THIS TIME, AROUSABLE, APPEAR COMFORTABLE, NO DISTRESS NOTED, CALL LIGHT IN REACH. WILL CONTINUE TO MONITOR.
[2018-07-07] MEDS: HYDROMORPHONE HCL 2 MG TABLET PO PRN (02:17)
[2018-07-07] MEDS: LEVETIRACETAM (250 MG) 250 MG TABLET PO SCH ×3 (04:21→21:46)
[2018-07-07] MEDS: HYDROCODONE/APAP 5/325MG 1 EACH TABLET PO PRN ×3 (04:21→17:02)
[2018-07-07] MEDS: IV NS 0.9% 1,000 ML IV PRN (04:36)
--- NOTE | 2018-07-07 06:22 | NUR ---
MS/RN ACCU CHECK BLOOD SUGAR =84, OFFERED APPLE JUICE, BUT REFUSED.
--- NOTE | 2018-07-07 06:44 | NUR ---
MS/RN MORNING CARE DONE, PATIENT WAS SCREAMING WHILE DOING THE MORNING CARE, PATIENT REFUSED TO HAVE LEFT FOOT CHECKED, PATIENT IS VERY NON COOPERATIVE WITH THE NURSING CARE, PATIENT IS AWAKE AT THIS TIME, COMFORTABLE, NO DISTRESS NOTED, ALL NEEDS ATTENDED AT THIS TIME. WILL CONTINUE TO MONITOR.
[2018-07-07 07:05] LABS: BASOPHILS # (AUTO) 0.1 /CMM (0.0-0.2); BASOPHILS % (AUTO) 0.5 % (0.0-2.0); EOSINOPHILS % (AUTO) 1.1 % (0.0-6.0); HEMATOCRIT 42 % (39-51); HEMOGLOBIN 14.2 g/dL (13.5-17.5); LYMPHOCYTES # (AUTO) 2.1 /CMM (0.8-4.8); LYMPHOCYTES % (AUTO) 19.9 % (20.0-44.0); MEAN CORPUSCULAR HGB CONC 34 g/dl (31.0-36.0); MEAN CORPUSCULAR VOLUME 98 fL (80-96); MONOCYTES # (AUTO) 0.7 /CMM (0.1-1.30); MONOCYTES % (AUTO) 6.8 % (2.0-12.0); NEUTROPHILS # (AUTO) 7.5 /CMM (1.8-8.9); NEUTROPHILS % (AUTO) 71.7 % (43.0-81.0); PLATELET COUNT (AUTO) 221 /CMM (150-450); RED BLOOD CELL COUNT(AUTO) 4.23 MIL/uL (4.5-6.0); WHITE BLOOD COUNT (AUTO) 10.5 K/uL (4.3-11.0)
[2018-07-07] MEDS: BLOOD SUGAR DIAGNOSTIC 1 EACH STRIP IN SCH ×4 (07:30→21:36)
[2018-07-07 07:41] LABS: THYROID STIMULATING HORMONE 5.205 uIU/mL (0.358-3.74)
[2018-07-07 07:44] LABS: ALBUMIN 2.5 g/dL (3.4-5.0); BILIRUBIN,TOTAL 0.4 mg/dL (0.2-1.0); CALCIUM, SERUM 8.2 mg/dL (8.5-10.1); CREATININE 0.7 mg/dL (0.6-1.3); MAGNESIUM 1.9 mg/dL (1.8-2.4); PHOSPHORUS 2.8 mg/dL (2.5-4.9); TOTAL PROTEIN, SERUM 7.9 g/dL (6.4-8.2)
--- NOTE | 2018-07-07 07:44 | NUR ---
MS/RN OPENING NOTE PATIENT IN BED IN STABLE CONDITION. A/O X 3. NO SIGNS OF ACUTE DISTRESS. NO COMPLAIN OF PAIN OR DISCOMFORT. ALL NEEDS ATTENDED TO. CALL LIGHT WITHIN REACH. WILL CONTINUE TO MONITOR TO ENSURE SAFETY.
[2018-07-07 08:00] VITALS: BP 151/81
--- NOTE | 2018-07-07 08:09 | NUR ---
WOUND CARE CONSULT WOUND CARE RECEIVED CONSULT FOR MULTIPLE WOUNDS. WOUND CARE WILL DEFER CONSULT AND ALL TREATMENT PLANS TO PLASTIC SURGICAL TEAM INCLUDING DPM WHO ARE ALL FOLLOWING THIS PATIENT. PATIENT WITH LISETH AT 12, ALL PRESSURE ULCER PREVENTION MEASURES ARE NOTED TO BE IN PLACE AT THIS TIME. WILL SEE PRN.
[2018-07-07] MEDS: HEPARIN SODIUM, PORCINE 5000 UNITS/1 ML VIAL SQ SCH ×3 (09:00→21:49)
[2018-07-07] MEDS: CADEXOMER IODINE 40 GM TUBE TP SCH (09:00)
[2018-07-07] MEDS: PANTOPRAZOLE 40 MG TABLET.DR PO SCH (09:11)
[2018-07-07] MEDS: GABAPENTIN 400 MG CAPSULE PO SCH ×3 (09:11→16:53)
[2018-07-07] MEDS: ZINC SULFATE 220 MG CAPSULE PO SCH (09:11)
[2018-07-07] MEDS: MULTIVIT W/MINERALS 1 TAB TABLET PO SCH (09:11)
[2018-07-07] MEDS: AMLODIPINE BESYLATE 10 MG TABLET PO SCH (09:11)
[2018-07-07] MEDS: FINASTERIDE (5 MG) 5 MG TABLET PO SCH (09:11)
[2018-07-07] MEDS: ASCORBIC ACID 500 MG TABLET PO SCH ×2 (09:11→16:53)
[2018-07-07] MEDS: PHENYTOIN EXTENDED RELEASE 100 MG CAPSULE PO SCH ×2 (09:11→21:47)
[2018-07-07] MEDS: HYDROXYUREA 500 MG CAPSULE PO SCH (09:11)
[2018-07-07] MEDS: METOPROLOL TARTRATE 25 MG TABLET PO SCH ×2 (09:12→16:53)
[2018-07-07] MEDS ORDERED: POTASSIUM CHLORIDE 20 MEQ TAB.PRT.SR PO SCH (09:30)
[2018-07-07] MEDS: LEVOTHYROXINE SODIUM 25 MCG TABLET PO SCH (10:00)
[2018-07-07] MEDS ORDERED: POTASSIUM CHLORIDE 20 MEQ TAB.PRT.SR PO ONE (10:00)
--- NOTE | 2018-07-07 10:31 | NUR ---
MS/RN PATIENT REFUSED SKIN BODY ASSESSMENT, OFFERED X 3 WITH RISKS, BENEFITS EXPLAINED CONTINUE TO REFUSE AND REFUSE DRESSING CHANGE TO LEFT HEEL WOUND WELL. WILL CONTINUE TO OFFER AND MONITOR FOR FURTHER CHANGES.
[2018-07-07 16:00] VITALS: BP 141/77
--- NOTE | 2018-07-07 18:13 | NUR ---
MS/RN CLOSING NOTE PATIENT IN BED IN STABLE CONDITION. A/O X 3. NO SIGNS OF ACUTE DISTRESS. NO COMPLAIN OF PAIN OR DISCOMFORT. REFUSED WOUND DRESSING FOR LEFT HEEL TO BE CHANGED. OFFERED X 3 WITH RISKS AND BENEFITS EXPLAINED CONTINUE TO REFUSED. ALL NEEDS ATTENDED TO. CALL LIGHT WITHIN REACH. WILL ENDORSE TO NEXT SHIFT FOR CONTINUITY OF CARE.
--- NOTE | 2018-07-07 19:15 | NUR ---
MS RN NOTE RECEIVED PATIENT IN BED ALERT AND AWAKE. BREATHING EVEN AND UNLABORED WITH NO SIGNS OF ACUTE DISTRESS OR SOB NOTED. ALL SAFETY MEASURES IN PLACE, BED IN LOWEST POSITION WITH SIDE RAILS UP X2. MIDLINE UIN CATHIE PATENT AND INTACT. CALL LIGHT WITHIN REACH. WILL CONTINUE TO MONITOR.
[2018-07-07] MEDS: METHADONE HCL 10 MG TABLET PO SCH (19:47)
[2018-07-07 20:00] VITALS: BP 152/84
[2018-07-07] MEDS: TOPIRAMATE 25 MG TABLET PO SCH (21:47)
[2018-07-07] MEDS: ATORVASTATIN 10 MG TABLET PO SCH (21:47)
[2018-07-07] MEDS: INSULIN GLARGINE, 100 UNIT/ML CARTRIDGE SQ SCH (22:02)
[2018-07-08] MEDS: IV NS 0.9% 1,000 ML IV PRN ×2 (02:49→23:04)
[2018-07-08] MEDS: LEVETIRACETAM (250 MG) 250 MG TABLET PO SCH ×3 (04:15→22:25)
[2018-07-08] MEDS: HYDROMORPHONE HCL 2 MG TABLET PO PRN ×2 (04:24→16:07)
--- NOTE | 2018-07-08 06:34 | NUR ---
MS RN NOTE PATIENT IN BED A/OX2 WITH PERIODS OF FORGETFULNESS, AWAKE AND ABLE TO MAKE NEEDS KNOWN. BREATHING EVEN AND UNLABORED WITH NO SIGNS OF ACUTE DISTRESS OR SOB NOTED. PT WITH L KNEE WOUND WITH L HAND CONTRACTED. S/P DEBRIDEMENT ON 07/06/[address] RUIZ. PT ABLE TO USE URINAL/DIAPER. ALL SAFETY MEASURES IN PLACE, BED IN LOWEST POSITION WITH SIDE RAILS UP X2. MIDLINE IN CATHIE PATENT AND INTACT. CALL LIGHT WITHIN REACH. WILL ENDORSE TO ONCOMING NURSE FOR CONTINUATION OF CARE.
--- NOTE | 2018-07-08 07:30 | NUR ---
Nurse Notes: received report from the night nurse Jose Grossman RN, alert and oriented. IV is infusing in right upper arm mid-line. patient refused to have dressing changes on left leg, left leg is very contracted. too painful to move and change position.
[2018-07-08] MEDS: BLOOD SUGAR DIAGNOSTIC 1 EACH STRIP IN SCH ×4 (07:52→22:25)
[2018-07-08 08:00] VITALS: BP 154/87
[2018-07-08] MEDS: PANTOPRAZOLE 40 MG TABLET.DR PO SCH (08:32)
[2018-07-08] MEDS: LEVOTHYROXINE SODIUM 25 MCG TABLET PO SCH (08:32)
[2018-07-08] MEDS: CADEXOMER IODINE 40 GM TUBE TP SCH (09:00)
[2018-07-08] MEDS: HEPARIN SODIUM, PORCINE 5000 UNITS/1 ML VIAL SQ SCH ×2 (09:00→22:46)
--- NOTE | 2018-07-08 09:00 | NUR ---
Nurse Notes: brother Jose Nguyen is POA, wants to be called for any new medications ordered. [phone]. Patient is not eating the breakfast bought, 4 toasts and banana, patient is not eating. patient wants bagel, but the cream cheese was not bought, patient does not drink milk, cream cheese was bought, and patient still not eating.
[2018-07-08 12:04] VITALS: BP 126/83
[2018-07-08] MEDS: PHENYTOIN EXTENDED RELEASE 100 MG CAPSULE PO SCH ×2 (12:09→22:25)
--- NOTE | 2018-07-08 12:10 | NUR ---
Lizzie Notes: patient was refusing his medications this morning, cursing out the nurse, calling the nurse a BITCH earlier, patient's father at bedside, patient is more well manner, patient is willing to take his medications, patient will take the small pills two at a time, but wants the bigger tablets cut in half. Medications given stagger so patient would take his medications.
[2018-07-08] MEDS: METHADONE HCL 10 MG TABLET PO SCH (12:11)
[2018-07-08] MEDS: AMLODIPINE BESYLATE 10 MG TABLET PO SCH (12:16)
[2018-07-08] MEDS: METOPROLOL TARTRATE 25 MG TABLET PO SCH ×2 (12:17→19:07)
[2018-07-08] MEDS: HYDROXYUREA 500 MG CAPSULE PO SCH (13:24)
[2018-07-08] MEDS: FINASTERIDE (5 MG) 5 MG TABLET PO SCH (13:24)
[2018-07-08] MEDS: GABAPENTIN 400 MG CAPSULE PO SCH ×3 (13:38→19:07)
--- NOTE | 2018-07-08 14:30 | NUR ---
Nurse Notes: mid line dressing loosened, second nurse check site. mid-line is out 1 /2 inches. site not saved, will have another mid-line dressing placed.
[2018-07-08] MEDS: MULTIVIT W/MINERALS 1 TAB TABLET PO SCH (14:52)
[2018-07-08] MEDS: ASCORBIC ACID 500 MG TABLET PO SCH ×2 (14:52→19:10)
[2018-07-08] MEDS: ZINC SULFATE 220 MG CAPSULE PO SCH (14:52)
[2018-07-08 16:00] VITALS: BP 131/97
[2018-07-08 16:04] VITALS: BP 131/97
--- NOTE | 2018-07-08 17:00 | NUR ---
Nurse Notes: ICU nurse came to unit, will place midline IV, placed on the left upper arm. patient will continue with IV fluids. patient is receiving Normal saline at 75 cc per hour.
[2018-07-08 19:00] VITALS: BP 130/90
--- NOTE | 2018-07-08 19:45 | NUR ---
MS/RN OPENING NOTES PT RECEIVED AWAKE, RESTING COMFORTABLY IN BED. ON ROOM AIR, BREATHING EVEN AND UNLABORED. DENIES SOB AND PAIN AT THIS TIME. MARTELL IV PATENT AND INTACT RUNNING IVF ORDERED. BED IN LOW/LOCKED POSITION WITH CALL LIGHT IN REACH. BILATERAL UPPER SIDE RAILS IN PLACE. WILL CONTINUE TO MONITOR
[2018-07-08 20:00] VITALS: BP 142/74
[2018-07-08] MEDS: INSULIN GLARGINE, 100 UNIT/ML CARTRIDGE SQ SCH (22:00)
[2018-07-08] MEDS: TOPIRAMATE 25 MG TABLET PO SCH (22:25)
[2018-07-08] MEDS: ATORVASTATIN 10 MG TABLET PO SCH (22:25)
[2018-07-08] MEDS: HYDROCODONE/APAP 5/325MG 1 EACH TABLET PO PRN (23:03)
[2018-07-09] MEDS: LEVETIRACETAM (250 MG) 250 MG TABLET PO SCH ×3 (06:06→22:07)
[2018-07-09] MEDS: HYDROCODONE/APAP 5/325MG 1 EACH TABLET PO PRN (06:46)
[2018-07-09] MEDS: BLOOD SUGAR DIAGNOSTIC 1 EACH STRIP IN SCH ×4 (06:50→22:44)
--- NOTE | 2018-07-09 07:20 | NUR ---
MS/RN CLOSING NOTES PT AWAKE, ADMINISTERED PRN NORCO FOR C/O RIGHT HIP PAIN. ON ROOM AIR, BREATHING EVEN AND UNLABORED. IN NO ACUTE DISTRESS. MARTELL IV PATENT AND INTACT RUNNING IVF ORDERED. PT ATTEMPTING TO USE URINAL BUT SPILLING. UPON CHANGING, PT SCREAMING AND CUSSING AT STAFF. REFUSING TURNING/REPOSITIONING. PT AGREED TO PLACING CONDOM CATH. KEPT COMFORTABLE POSSIBLE, ALL DUE MEDS GIVEN. BED REMAINS IN LOW/LOCKED POSITION WITH CALL LIGHT IN REACH. BILATERAL UPPER SIDE RAILS IN PLACE. ENDORSED TO DAY SHIFT RN RACHANA.
--- NOTE | 2018-07-09 07:23 | NUR ---
MS RN OPENING NOTES RECEIVED PT RESTING IN BED. NOT IN ANY RESPIRATORY DISTRESS. BREATHING EVEN WITHOUT SOB NOTED. NO PAIN OR ANY DISCOMFORT VERBALIZED. IVF NS AT 75ML/HR TO MARTELL G18, WITHOUT INFILTRATION NOTED. KEPT IN LOW BED; LOCKED POSITION WITH SR X2. CALL LIGHT KEPT WITHIN REACH. WILL CONTINUE TO MONITOR.
[2018-07-09] MEDS: PANTOPRAZOLE 40 MG TABLET.DR PO SCH (07:40)
[2018-07-09] MEDS: LEVOTHYROXINE SODIUM 25 MCG TABLET PO SCH (07:40)
[2018-07-09 08:00] VITALS: BP 150/74
[2018-07-09] MEDS: HYDROXYUREA 500 MG CAPSULE PO SCH (08:51)
[2018-07-09] MEDS: AMLODIPINE BESYLATE 10 MG TABLET PO SCH (08:51)
[2018-07-09] MEDS: METOPROLOL TARTRATE 25 MG TABLET PO SCH ×2 (08:52→17:33)
[2018-07-09] MEDS: FINASTERIDE (5 MG) 5 MG TABLET PO SCH (08:52)
[2018-07-09] MEDS: GABAPENTIN 400 MG CAPSULE PO SCH ×3 (08:52→17:32)
[2018-07-09] MEDS: PHENYTOIN EXTENDED RELEASE 100 MG CAPSULE PO SCH ×2 (08:53→22:07)
[2018-07-09] MEDS: ZINC SULFATE 220 MG CAPSULE PO SCH (08:53)
[2018-07-09] MEDS: MULTIVIT W/MINERALS 1 TAB TABLET PO SCH (08:53)
[2018-07-09] MEDS: METHADONE HCL 10 MG TABLET PO SCH (08:54)
[2018-07-09] MEDS: HEPARIN SODIUM, PORCINE 5000 UNITS/1 ML VIAL SQ SCH ×3 (08:55→22:08)
[2018-07-09] MEDS: ASCORBIC ACID 500 MG TABLET PO SCH ×2 (08:55→17:32)
[2018-07-09] MEDS: CADEXOMER IODINE 40 GM TUBE TP SCH (09:12)
[2018-07-09 16:00] VITALS: BP 128/78
[2018-07-09] MEDS: IV NS 0.9% 1,000 ML IV PRN (18:29)
--- NOTE | 2018-07-09 19:06 | NUR ---
MS RN CLOSING NOTES PT RESTING IN BED. NOT IN ANY RESPIRATORY DISTRESS. BREATHING EVEN WITHOUT SOB NOTED. NO PAIN OR ANY DISCOMFORT STATED AT THIS TIME. IVF NS AT 75ML/HR TO MARTELL G18, WITHOUT INFILTRATION NOTED. WOUND TREATMENT PROVIDED ORDERED, DRESSINGS CHANGED TO LEFT LEG. SAFETY MEASURES OBSERVED. KEPT BED IN LOW, LOCKED POSITION WITH SR X2. CALL LIGHT KEPT WITHIN REACH. KEPT COMFORTABLE, CLEAN AND DRY. WILL ENDORSE TO CONTACT PRINTER DRY FILM NURSE FOR RACHANA.
--- NOTE | 2018-07-09 19:50 | NUR ---
RN NOTES RECEIVED PATIENT, BREATHING EVEN AND UNLABORED, NO SIGNS OF ACUTE DISTRESS NOTED, PATIENT IS IRRITABLE, CUSSING, REFUSING TO BE TOUCH, ALL SAFETY MEASURES MAINTAINED, ASPIRATION PRECAUTION EMPHASIZED. WILL CONTINUE TO MONITOR ACCORDINGLY.
[2018-07-09 20:00] VITALS: BP 148/75
[2018-07-09] MEDS: TOPIRAMATE 25 MG TABLET PO SCH (22:07)
[2018-07-09] MEDS: ATORVASTATIN 10 MG TABLET PO SCH (22:07)
--- NOTE | 2018-07-09 23:00 | NUR ---
RN NOTES REFUSED PICTURE TO BE TAKEN ON HIS BACK AND SACRAL AREA FOR WEEKLY SKIN ASSESSMENT. CHARGE NURSE AWARE.
[2018-07-10] MEDS: INSULIN GLARGINE, 100 UNIT/ML CARTRIDGE SQ SCH (00:31)
[2018-07-10] MEDS: LEVETIRACETAM (250 MG) 250 MG TABLET PO SCH (05:01)
[2018-07-10] MEDS: BLOOD SUGAR DIAGNOSTIC 1 EACH STRIP IN SCH (07:49)
--- NOTE | 2018-07-10 07:50 | NUR ---
RN NOTES ALL NEEDS ATTENDED, KEPT COMFORTABLE, ENDORSED TO AM NURSE FOR CONTINUITY OF CARE.
[2018-07-10 08:00] VITALS: BP 131/88
[2018-07-10] MEDS: ZINC SULFATE 220 MG CAPSULE PO SCH (09:05)
[2018-07-10] MEDS: HYDROXYUREA 500 MG CAPSULE PO SCH (09:05)
[2018-07-10] MEDS: FINASTERIDE (5 MG) 5 MG TABLET PO SCH (09:07)
[2018-07-10] MEDS: PHENYTOIN EXTENDED RELEASE 100 MG CAPSULE PO SCH (09:07)
[2018-07-10] MEDS: METHADONE HCL 10 MG TABLET PO SCH (09:08)
[2018-07-10] MEDS: AMLODIPINE BESYLATE 10 MG TABLET PO SCH (09:08)
[2018-07-10] MEDS: MULTIVIT W/MINERALS 1 TAB TABLET PO SCH (09:09)
[2018-07-10 09:10] VITALS: BP 142/65
[2018-07-10] MEDS: METOPROLOL TARTRATE 25 MG TABLET PO SCH (09:10)
[2018-07-10] MEDS: HEPARIN SODIUM, PORCINE 5000 UNITS/1 ML VIAL SQ SCH (09:11)
[2018-07-10] MEDS: CADEXOMER IODINE 40 GM TUBE TP SCH (09:13)
[2018-07-10] MEDS: LEVOTHYROXINE SODIUM 25 MCG TABLET PO SCH (09:24)
[2018-07-10] MEDS: PANTOPRAZOLE 40 MG TABLET.DR PO SCH (09:24)
[2018-07-10] MEDS: ASCORBIC ACID 500 MG TABLET PO SCH (09:24)
[2018-07-10] MEDS: GABAPENTIN 400 MG CAPSULE PO SCH (09:32)
--- NOTE | 2018-07-10 13:02 | NUR ---
0700 ASSUMED CARE OF PATIENT. PATIENTS VITALS STABLE. PATIENT ALERT AND ORIENTED TIMES THREE. PATIENT HAS PAIN 7/10 GENERALIZED. PATIENT REFUSED TO BE MOVED, TOUCHED, CLEANED, OR BED TO BE SAT UP. WHEN TRYING TO MOVE THE HEAD OF BED UP PATIENT YELLED "HOW MANY TIMES DO I HAVE TO TELL YOU BITCHES? DON'T TOUCH ME AND DON'T TOUCH THE BED. YOU NEED TO CLEAN YOUR FUCKING EARS". 0900 PATIENT MEDICATION COMPLIANT. PATIENT STILL REFUSING TO BE MOVED OR TOUCHED. PATIENT ATE 25% OF BREAKFAST. PATIENT STILL IRRITABLE, UNCOOPERATIVE, AGITATED AND YELLING. 1008 PATIENT GIVEN METHADONE PO PER DR ORDERS FOR PAIN 10/10 GENERALIZED. PATIENT VERY IRRITABLE, AND REFUSING TO BE TURNED, TOUCHED, OR THE BED HEAD OF BED UP. PATIENT LAYING FLAT AND SUPINE POSITION AND REFUSES ANY POSITION CHANGE. 1100 DISCHARGE ORDERS TO BE CARRIED OUT. PAPERWORK STARTED FOR DISCHARGE. PATIENT STATES PAIN IS 4/10 GENERALIZED AFTER RECEIVING NEURONTIN AND METHADONE AT 1008. 1200 [facility] HERE TO SEAT MENDER PATIENT. PATIENT TO BE TRANSPORTED TO [facility]. 1230 [facility] RN CALLED AND GIVEN REPORT. 1240 PATIENT WHEELED OUT BY TRANSPORT. VITAL SIGNS STABLE. PATIENT ALERT AND ORIENTED YELLING ON THE WAY OUT. TRISHA ANDERSON RN
== END 2018-07-10 12:40 | DRG 463 ==
LOC: ER 09:41 → MED 13:35
PROVIDERS: ADMIT Internal Medicine; ATTEND Internal Medicine
PROC: 0JBP0ZZ Excision of Left Lower Leg Subcutaneous Tissue and Fascia, Open Approach (ICD-10-PCS; principal; 2018-07-06)
PROC: 05H533Z Insertion of Infusion Device into Right Subclavian Vein, Percutaneous Approach (ICD-10-PCS; 2018-07-06)
PROC: B546ZZA Ultrasonography of Right Subclavian Vein, Guidance (ICD-10-PCS; 2018-07-06)
DX: M81.0 Age-related osteoporosis without current pathological fracture (principal); G93.41 Metabolic encephalopathy; R53.2 Functional quadriplegia; L03.116 Cellulitis of left lower limb; L97.429 Non-pressure chronic ulcer of left heel and midfoot with unspecified severity; M16.0 Bilateral primary osteoarthritis of hip; Z86.73 Personal history of transient ischemic attack (TIA), and cerebral infarction without residual deficits; I11.0 Hypertensive heart disease with heart failure; I50.9 Heart failure, unspecified; Z98.2 Presence of cerebrospinal fluid drainage device; N40.0 Benign prostatic hyperplasia without lower urinary tract symptoms; Z74.01 Bed confinement status; E11.621 Type 2 diabetes mellitus with foot ulcer; L97.529 Non-pressure chronic ulcer of other part of left foot with unspecified severity; M19.90 Unspecified osteoarthritis, unspecified site; M24.562 Contracture, left knee; E11.42 Type 2 diabetes mellitus with diabetic polyneuropathy; E78.5 Hyperlipidemia, unspecified; G89.4 Chronic pain syndrome; I25.10 Atherosclerotic heart disease of native coronary artery without angina pectoris; M54.10 Radiculopathy, site unspecified; Z79.4 Long term (current) use of insulin; Z79.891 Long term (current) use of opiate analgesic; Z79.899 Other long term (current) drug therapy; G40.909 Epilepsy, unspecified, not intractable, without status epilepticus; S81.002A Unspecified open wound, left knee, initial encounter
CPT/HCPCS: 36415; 36569; 72192-TC; 80048-TC; 80053-TC; 80061-TC; 82962-TC; 83735-TC; 84100-TC; 84439-TC; 84443-TC; 85025-TC; 87081-TC; A4349; G0378; J1644; J1815; J7030

== ENCOUNTER 2018-11-28 14:27 | Inpatient (IN) | payer MEDICARE, OTHER ==
[~2018-11-28] VITALS: Ht 167.6 cm; Wt 99.8 kg
[~2018-11-28 14:27] MED LIST changes: +BENZ1LOZ12 MM; -BIOT5TAB PO; +HYDR4TAB57 PO; +MAG30ORA PO; -MELA5TAB PO; -NEPA3DRO EACHEYE; +OMEP20CA10 PO; -OXYC-128 PO; -PANT20TA3 PO; -POLY15DR40 EACHEYE; -VITA100014 PO; +ZINC220C8 PO
--- NOTE | 2018-11-28 14:30 | NUR ---
BIB PA FROM [facility], PROGRESSIVE WEAKNESS AND POOR PO INTAKE. PATIENT A/OX2, BREATHING EVEN AND UNLABORED, NO SOB NOTED, PATIENT CONTRACTED ON BUE, AND BLE. ATTACHED TO THE MONITOR, NO DISTRESS NOTED.
[2018-11-28] MEDS ORDERED: LEVO25TA7 PO (14:48)
[2018-11-28] MEDS ORDERED: DEXT1DRO3 OP (14:48)
[2018-11-28] MEDS ORDERED: CYCL10TA9 PO (14:48)
[2018-11-28] MEDS ORDERED: PROT946L PO (14:48)
[2018-11-28] MEDS ORDERED: TOPI25CA PO (14:48)
[2018-11-28] MEDS ORDERED: VANCOMYCIN 1 GM in IV D5W 250 ML IV ONE (15:30)
[2018-11-28] MEDS ORDERED: ONDANSETRON HCL/PF 4 MG/2 ML VIAL IVP ONE (15:30)
[2018-11-28] MEDS ORDERED: IV NS 0.9% 1,000 ML BAG IV ONE (15:30)
[2018-11-28] MEDS ORDERED: MORPHINE SULFATE INJ 2 MG/ML DISP.SYRIN IV ONE (15:30)
[2018-11-28 15:36] LABS: BASOPHILS # (AUTO) 0.1 /CMM (0.0-0.2); EOSINOPHILS % (AUTO) 2.3 % (0.0-6.0); HEMATOCRIT 43 % (39-51); HEMOGLOBIN 13.9 g/dL (13.5-17.5); LYMPHOCYTES # (AUTO) 2.2 /CMM (0.8-4.8); LYMPHOCYTES % (AUTO) 19.9 % (20.0-44.0); MEAN CORPUSCULAR HGB CONC 33 g/dl (31.0-36.0); MEAN CORPUSCULAR VOLUME 104 fL (80-96); MONOCYTES # (AUTO) 0.8 /CMM (0.1-1.30); MONOCYTES % (AUTO) 7.1 % (2.0-12.0); NEUTROPHILS # (AUTO) 7.7 /CMM (1.8-8.9); NEUTROPHILS % (AUTO) 69.7 % (43.0-81.0); PLATELET COUNT (AUTO) 222 /CMM (150-450); RED BLOOD CELL COUNT(AUTO) 4.13 MIL/uL (4.5-6.0); WHITE BLOOD COUNT (AUTO) 11.1 K/uL (4.3-11.0)
[2018-11-28] MEDS ORDERED: MORPHINE SULFATE INJ 4 MG/ML DISP.SYRIN ONE (15:36)
[2018-11-28] MEDS ORDERED: ONDANSETRON HCL/PF 4 MG/2 ML VIAL ONE (15:36)
[2018-11-28 15:44] LABS: CALCIUM, SERUM 8.3 mg/dL (8.5-10.1); CARBON DIOXIDE 28 mmol/L (21-32); CHLORIDE 107 mmol/L (98-107); CREATININE 0.6 mg/dL (0.6-1.3); GLUCOSE 139 mg/dL (74-106); POTASSIUM 3.7 mmol/L (3.5-5.1); SODIUM SERUM 140 mmol/L (136-145); UREA NITROGEN, BLOOD 16 mg/dL (7-18)
[2018-11-28 15:50] LABS: ALANINE AMINOTRANSFERASE 13 U/L (12-78); ALBUMIN 2.6 g/dL (3.4-5.0); ALKALINE PHOSPHATASE 118 U/L (46-116); ASPARTATE AMINOTRANSFERASE 11 U/L (15-37); BILIRUBIN,DIRECT 0.1 mg/dL (0.0-0.2); BILIRUBIN,TOTAL 0.3 mg/dL (0.2-1.0); TOTAL PROTEIN, SERUM 7.7 g/dL (6.4-8.2)
--- NOTE | 2018-11-28 16:00 | NUR ---
PATIENT REFUSING [place]ONO CATHETER.
[2018-11-28 16:30] LABS: APPEARANCE,URINE Cloudy (CLEAR); BILIRUBIN,URINE SMALL (NEGATIVE); BLOOD, URINE Negative Ery/uL (NEGATIVE); COLOR,URINE Yellow (YELLOW); KETONES,URINE 15 (NEGATIVE); LEUKOCYTE ESTERASE ,URINE Large (NEGATIVE); NITRITE, URINE Negative (NEGATIVE); PH,URINE 8.5 (5.0-8.0); PROTEIN,URINE >=300 mg/dl (NEGATIVE); UGLUCOSE Negative (NEGATIVE)
[2018-11-28] MEDS ORDERED: CEFTRIAXONE 1GM BAG (ER ONLY) 1 GM/50 ML PIGGYBACK IV ONE (16:30)
[2018-11-28] MEDS ORDERED: CEFTRIAXONE 1GM BAG (ER ONLY) 50 ML IV ONE (16:31)
[2018-11-28 16:40] LABS: RBC,URINE NONE SEEN /HPF (0-2)
[2018-11-28 16:41] LABS: BACTERIA,URINE 4+ /HPF (None Seen); SQUAMOUS EPITHELIAL CELL,UR Few /HPF (None Seen); WBC,URINE TOO NUMEROUS TO COUN /HPF (0-3)
--- NOTE | 2018-11-28 17:00 | NUR ---
ROOM 314-N,DEUCE
--- NOTE | 2018-11-28 17:18 | NUR ---
REPORT GIVEN TO DEUCE TYLER.
--- NOTE | 2018-11-28 17:19 | NUR ---
PATIENT TRANSFERRED TO ROOM 314-2 VIA ACLS PROTOCOL. NO DISTRESS NOTED.
[2018-11-28] MEDS ORDERED: BISACODYL SUPP (10 MG) 10 MG/SUPP.RECT SUPP.RECT RC PRN (17:30)
--- NOTE | 2018-11-28 19:10 | NUR ---
MS RN NOTES RECEIVED PT IN BED AWAKE AND ABLE TO MAKE NEEDS KNOWN WITH FAMILY AT BEDSIDE. PT A/O X2-3 WITH PERIODS OF CONFUSION. RESPIRATIONS EVEN WITH NO S/S OF ACUTE DISTRESS OR SOB NOTED. NO COMPLAINTS OF PAIN AT THIS TIME. PT WITH RHAND IV #20G PATENT AND INTACT AND MARTELL MIDLINE PATENT AND INTACT. PT WITH CONTRACTED LOWER EXTREMITY. PT WITH VISIBLE REDNESS AND WITH BUT PT REFUSING PICTURES. SAFETY MEASURES IN PLACE WITH BED IN LOWEST LOCKED POSITION WITH SIDE RAILS UP X3 WITH SEIZURE PRECAUTIONS IN PLACE. CALL LIGHT WITHIN REACH. WILL CONTINUE TO MONITOR.
--- NOTE | 2018-11-28 19:30 | NUR ---
MS RN NOTE PER FAMILY NO PAIN MEDICATION STRONGER THAN TYLENOL IS WANTED TO BED USED. PREVIOUSLY WAS GIVEN MORPHINE OR NORCO AND THEY DID NOT LIKE THE WAY HE REACTED TO IT. THEY STATED HE WAS SLEEPING MOST OF THE TIME AND/OR LETHARGIC. EXPLAINED ABOUT THE SIDE EFFECTS OF THE MEDICATIONS AND FAMILY STILL STATED THAT THEY WANTED HIM ONLY ON TYLENOL BUT IF SOMETHING STRONGER IS NEEDED TO CONTACT THE JAMEEL JAVED .
--- NOTE | 2018-11-28 19:41 | NUR ---
GARBAGE COLLECTOR SUPERVISOR NOTE PATIENT ADMITTED FROM ER WITH NO BED AVAILABLE. [facility] MIDLINE NURSE INSERTERD LFT 18 GAUGE AT BEDSIDE. MD AWARE OF PATIENTS ARRIVAL ON THE UNIT. BED IN LOW POSITION, CALL LIGHT WITHIN REACH, ENDORSEE TO NURSE FAMILY DOENST WANT MORPHINE, UA COLLECTED IN ER. CONTINUE TO MONITOR.
[2018-11-28] MEDS ORDERED: IV NS 0.9% 1,000 ML IV PRN (19:56)
[2018-11-28] MEDS ORDERED: ZOLPIDEM TARTRATE 5 MG TABLET PO PRN (20:00)
[2018-11-28] MEDS ORDERED: ACETAMINOPHEN 325 MG TABLET PO PRN (20:00)
[2018-11-28] MEDS ORDERED: Z GUARD REMEDY 2 OZ OINT TP PRN (20:00)
[2018-11-28] MEDS ORDERED: ONDANSETRON HCL/PF 4 MG/2 ML VIAL IVP PRN (20:00)
[2018-11-28] MEDS ORDERED: MAG HYDROX/AL HYDROX/SIMETH 30 ML UDC PO PRN (20:00)
[2018-11-28] MEDS ORDERED: MAGNESIUM HYDROXIDE 30 ML UDC PO PRN (20:00)
[2018-11-28] MEDS ORDERED: HYDROCODONE/APAP 5/325MG 1 EACH TABLET PO PRN (20:00)
[2018-11-28 20:35] VITALS: BP 115/76
[2018-11-28] MEDS ORDERED: CEFTRIAXONE 1 G in IV D5W 50 ML IV SCH (21:00)
--- NOTE | 2018-11-28 21:10 | NUR ---
MS RN NOTES PT LEFT UNIT FOR CT SCAN.
--- NOTE | 2018-11-28 21:27 | NUR ---
MS RN NOTES PT CAME BACK FROM CT SCAN IN STABLE CONDITION.
[2018-11-28] MEDS ORDERED: INSULIN GLARGINE, 100 UNIT/ML CARTRIDGE SQ SCH (22:00)
[2018-11-28] MEDS: HEPARIN SODIUM, PORCINE 5000 UNITS/1 ML VIAL SQ SCH (22:02)
[2018-11-28] MEDS: LEVETIRACETAM (250 MG) 250 MG TABLET PO SCH (22:03)
[2018-11-28] MEDS: PHENYTOIN EXTENDED RELEASE 100 MG CAPSULE PO SCH (22:03)
[2018-11-28] MEDS: ATORVASTATIN 10 MG TABLET PO SCH (22:03)
[2018-11-28] MEDS: TOPIRAMATE 25 MG TABLET PO SCH (22:03)
[2018-11-29] MEDS: LEVETIRACETAM (250 MG) 250 MG TABLET PO SCH ×3 (05:20→21:51)
[2018-11-29] MEDS: BLOOD SUGAR DIAGNOSTIC 1 EACH STRIP IN SCH ×4 (07:34→21:49)
--- NOTE | 2018-11-29 07:55 | NUR ---
RN OPENING NOTE PT WAS RTECEIVED IN BED AT LOWEST AND LOCKED POSITION WITH SIDE RAILS UPX2, A/O 2-3 WITH PERIODS OF CONFUSION, NO S/S OF ANY DISTRESS OR PAIN NOTED AT THIS TIME, PER NIGHT RN PT FAMILY DOES NOT WANT PAIN MED STRONGER THAN TYLENOL, IV ARE PATENT AND INTACT, SAFETY PRECAUTIONS IN PLACE, CALL LIGHT WITHIN REACH, WILL MONITOR PT ACCORDINGLY.
[2018-11-29 08:00] VITALS: BP 117/73
--- NOTE | 2018-11-29 08:20 | NUR ---
RN NOTE PT REFUSED LAB DRAW AT THIS TIME, THEY WILL ATTEMPT AGAIN LATER
[2018-11-29] MEDS: LEVOTHYROXINE SODIUM 25 MCG TABLET PO SCH (08:21)
[2018-11-29] MEDS: HYDROXYUREA 500 MG CAPSULE PO SCH (08:21)
[2018-11-29] MEDS: PHENYTOIN EXTENDED RELEASE 100 MG CAPSULE PO SCH ×2 (08:21→21:52)
[2018-11-29] MEDS: CYCLOBENZAPRINE 10 MG TABLET PO SCH ×3 (08:21→16:27)
[2018-11-29] MEDS: METOPROLOL TARTRATE 25 MG TABLET PO SCH ×2 (08:22→16:27)
[2018-11-29] MEDS: FINASTERIDE (5 MG) 5 MG TABLET PO SCH (08:22)
[2018-11-29] MEDS: AMLODIPINE BESYLATE 10 MG TABLET PO SCH (08:22)
[2018-11-29] MEDS: ASCORBIC ACID 500 MG TABLET PO SCH ×2 (08:22→16:27)
[2018-11-29] MEDS: GABAPENTIN 400 MG CAPSULE PO SCH ×3 (08:22→16:26)
[2018-11-29] MEDS: HEPARIN SODIUM, PORCINE 5000 UNITS/1 ML VIAL SQ SCH ×2 (08:23→21:51)
--- NOTE | 2018-11-29 08:53 | NUR ---
MS RN NOTES PT NOTED WITH WOUNDS BUT PT REFUSED TREATMENT AND PICTURES. PT WITH REDNESS BILATERAL LEGS WITH RIGHT HAVING CELLULITIS. PT NOTED WITH SACRAL WOUND WITH BANDAGE ON. PT WITH BANDAGE TO RIGHT KNEE.
[2018-11-29] MEDS: PROSOURCE / PROSTAT (PYXIS) 30 ML UDC PO SCH (08:58)
[2018-11-29] MEDS: POLYVINYL ALCOHOL 15 ML BOTTLE OP SCH ×2 (09:00→16:26)
--- NOTE | 2018-11-29 09:49 | NUR ---
RN NOTE PT REFUSED TREATMENT AND PHOTOS OF WOUNDS ON LEFT FOOT, RIGHT KNEE, AND SACRUM. HE WAS INFORMED AND EDUCATED AND ABOUT REFUSING WOUND TREATMENT. WILL MONITOR ACCORDINGLY Addendum: 11/29/18 at 0954 by BHARATI SHANNON RN BOTH LEFT AND RIGHT KNEE
--- NOTE | 2018-11-29 11:24 | NUR ---
RN NOTE PT REFUSED TO BE TURNED AND CLEANED AT THIS TIME. PT ALSO REFUSED FOR HIS SKIN TO BE ASSESSED BY KVNG CURRAN. WILL MONITOR ACCORDINGLY
[2018-11-29] MEDS: IV NS 0.9% 1,000 ML IV PRN (13:18)
[2018-11-29] MEDS ORDERED: FEE PK DOSING 1 MIN EA MC ONE (13:48)
[2018-11-29 14:43] LABS: BASOPHILS % (AUTO) 0.6 % (0.0-2.0); EOSINOPHILS % (AUTO) 2.4 % (0.0-6.0); HEMATOCRIT 42 % (39-51); HEMOGLOBIN 13.7 g/dL (13.5-17.5); LYMPHOCYTES # (AUTO) 1.6 /CMM (0.8-4.8); LYMPHOCYTES % (AUTO) 19.1 % (20.0-44.0); MEAN CORPUSCULAR HGB CONC 33 g/dl (31.0-36.0); MEAN CORPUSCULAR VOLUME 104 fL (80-96); MONOCYTES # (AUTO) 0.6 /CMM (0.1-1.30); MONOCYTES % (AUTO) 6.7 % (2.0-12.0); NEUTROPHILS # (AUTO) 5.9 /CMM (1.8-8.9); NEUTROPHILS % (AUTO) 71.2 % (43.0-81.0); PLATELET COUNT (AUTO) 188 /CMM (150-450); RED BLOOD CELL COUNT(AUTO) 4.05 MIL/uL (4.5-6.0); WHITE BLOOD COUNT (AUTO) 8.3 K/uL (4.3-11.0)
[2018-11-29] MEDS: VANCOMYCIN 0.75 GM in IV D5W 250 ML IV SCH (14:50)
[2018-11-29 15:07] LABS: ALBUMIN 2.3 g/dL (3.4-5.0); BILIRUBIN,TOTAL 0.1 mg/dL (0.2-1.0); CREATININE 0.6 mg/dL (0.6-1.3); MAGNESIUM 1.9 mg/dL (1.8-2.4); PHOSPHORUS 2.8 mg/dL (2.5-4.9); POTASSIUM 3.4 mmol/L (3.5-5.1); TOTAL PROTEIN, SERUM 6.9 g/dL (6.4-8.2)
[2018-11-29 15:13] LABS: THYROID STIMULATING HORMONE 0.976 uIU/mL (0.358-3.74)
[2018-11-29] MEDS ORDERED: POTASSIUM CHLORIDE 20 MEQ TAB.PRT.SR PO SCH (15:30)
[2018-11-29 16:00] VITALS: BP 124/59
[2018-11-29] MEDS ORDERED: DEXTROSE 50%-WATER 50 ML DISP.SYRIN IV PRN ×2 (16:00)
[2018-11-29] MEDS: INSULIN REGULAR, HUMAN 100 UNIT/ML 3 ML VIAL SQ PRN (17:08)
--- NOTE | 2018-11-29 17:40 | NUR ---
RN NOTE WOUND CARE DONE AT THIS TIME
--- NOTE | 2018-11-29 18:05 | NUR ---
RN CLOSING NOTE PT RESTING COMFORTABLY IN BED AT LOWEST AND LOCKED POSITION WITH SIDE RAILS UPX2, A/O 2-3 WITH NO CURRENT S/S OF ANY DISTRESS OR PAIN AT THIS TIME, IV ARE PATENT AND INTACT, SAFETY PRECAUTIONS IN PLACE, CALL LIGHT WITHIN REACH, ALL NEEDS ATTENDED TO, WILL ENDORSE TO PARTNER [employer]IANCE MANAGER RN FOR RACHANA.
--- NOTE | 2018-11-29 19:05 | NUR ---
MS RN NOTES PT RECEIVED IN BED AWAKE AND ABLE TO MAKE NEEDS KNOWN. PT A/O X2-3 WITH PEROIDS OF CONFUSION. RESPIRATIONS EVEN AND UNLABORED WITH NO S/S OF ACUTE DISTRESS OR SOB NOTED. NO COMPLAINTS OF PAIN AT THIS TIME. PT WITH MARTELL MIDLINE RUNNING NS@100ML/HR. PT ASLO WITH RHAND #20G PATENT AND INTACT AND SL. SAFETY MEASURES IN PLACE WITH BED IN LOWEST LOCKED POSITION WITH SIDE RAILS UP X2. CALL LIGHT WITHIN REACH. WILL CONTINUE TO MONITOR.
[2018-11-29 20:00] VITALS: BP 109/71
[2018-11-29] MEDS: CEFEPIME 1 GM in IV D5W 50 ML IV SCH (20:24)
[2018-11-29] MEDS: TOPIRAMATE 25 MG TABLET PO SCH (21:51)
[2018-11-29] MEDS: ATORVASTATIN 10 MG TABLET PO SCH (21:51)
[2018-11-30] MEDS: VANCOMYCIN 0.75 GM in IV D5W 250 ML IV SCH ×2 (02:27→15:58)
[2018-11-30] MEDS: IV NS 0.9% 1,000 ML IV PRN (03:14)
[2018-11-30] MEDS: LEVETIRACETAM (250 MG) 250 MG TABLET PO SCH ×3 (05:03→20:20)
[2018-11-30] MEDS: INSULIN REGULAR, HUMAN 100 UNIT/ML 3 ML VIAL SQ PRN ×4 (06:29→21:43)
[2018-11-30] MEDS: BLOOD SUGAR DIAGNOSTIC 1 EACH STRIP IN SCH ×4 (06:30→21:40)
--- NOTE | 2018-11-30 06:37 | NUR ---
MS RN NOTES PT IN BED AWAKE AND ABLE TO MAKE NEEDS KNOWN. PT A/O X2-3 WITH PERIODS OF CONFUSION. RESPIRATIONS EVEN AND UNLABORED WITH NO S/S OF ACUTE DISTRESS OR SOB NOTED THROUGHOUT SHIFT. NO COMPLAINTS OF PAIN AT THIS TIME. PT WITH MARTELL MIDLINE RUNNING NS@100ML/HR. PT KEPT CLEAN, DRY, AND COMFORTABLE. PT TURNED Q2HRS. SAFETY MEASURES IN PLACE WITH BED IN LOWEST LOCKED POSITION WITH SIDE RAILS UP X3. SEIZURE PRECAUTIONS IN PLACE. CALL LIGHT WITHIN REACH. WILL ENDORSE TO ONCOMING NURSE FOR RACHANA.
--- NOTE | 2018-11-30 07:12 | NUR ---
RN OPENING NOTE PT WAS RECEIVED IN BED AT LOWEST AND LOCKED POSITION WITH SIDE RAILS UPX2, A/O 2-3 WITH PERIODS OF CONFUSION, NO S/S OF ANY DISTRESS OR PAIN NOTED AT THIS TIME, IV ARE PATENT AND INTACT, SAFETY PRECAUTIONS IN PLACE, CALL LIGHT WITHIN REACH, WILL MONITOR PT ACCORDINGLY.
[2018-11-30 07:20] LABS: CALCIUM, SERUM 7.7 mg/dL (8.5-10.1); CREATININE 0.5 mg/dL (0.6-1.3); POTASSIUM 3.4 mmol/L (3.5-5.1)
--- NOTE | 2018-11-30 07:26 | NUR ---
WOUND CARE CONSULT WOUND CARE RECEIVED CONSULT FOR MULTIPLE WOUNDS. PATIENT HAS REFUSED TO BE TURNED FOR POSTERIOR SKIN ASSESSMENTS PER NURSING AND WOUND CARE SURGEONS. PATIENT HAS REFUSED FLEET MANAGER/DISPATCH ASSESSMENTS WELL. WOUND CARE WILL DEFER CONSULT AND TREATMENT PLANS TO PLASTIC SURGICAL TEAM INCLUDING DPRomario ZAMAN WHO ARE ALL FOLLOWING THIS PATIENT. PATIENT WITH LISETH AT 12, ALL PRESSURE ULCER PREVENTION MEASURES ARE NOTED TO BE IN PLACE AT THIS TIME. WILL SEE PRN.
[2018-11-30 08:00] VITALS: BP 115/78
[2018-11-30] MEDS: GABAPENTIN 400 MG CAPSULE PO SCH ×3 (08:12→16:38)
[2018-11-30] MEDS: FINASTERIDE (5 MG) 5 MG TABLET PO SCH (08:12)
[2018-11-30] MEDS: ASCORBIC ACID 500 MG TABLET PO SCH ×2 (08:12→16:38)
[2018-11-30] MEDS: LEVOTHYROXINE SODIUM 25 MCG TABLET PO SCH (08:13)
[2018-11-30] MEDS: CYCLOBENZAPRINE 10 MG TABLET PO SCH ×3 (08:13→16:38)
[2018-11-30] MEDS: PHENYTOIN EXTENDED RELEASE 100 MG CAPSULE PO SCH ×2 (08:13→20:20)
[2018-11-30] MEDS: POLYVINYL ALCOHOL 15 ML BOTTLE OP SCH ×2 (08:13→16:40)
[2018-11-30] MEDS: AMLODIPINE BESYLATE 10 MG TABLET PO SCH (08:14)
[2018-11-30] MEDS: METOPROLOL TARTRATE 25 MG TABLET PO SCH ×2 (08:14→16:39)
[2018-11-30] MEDS: HYDROXYUREA 500 MG CAPSULE PO SCH (08:14)
[2018-11-30] MEDS: CADEXOMER IODINE 40 GM TUBE TP SCH (08:14)
[2018-11-30] MEDS: PROSOURCE / PROSTAT (PYXIS) 30 ML UDC PO SCH (08:16)
[2018-11-30] MEDS: HEPARIN SODIUM, PORCINE 5000 UNITS/1 ML VIAL SQ SCH ×2 (08:16→20:20)
[2018-11-30] MEDS: CEFEPIME 1 GM in IV D5W 50 ML IV SCH (08:18)
[2018-11-30] MEDS ORDERED: POTASSIUM CHLORIDE 20 MEQ TAB.PRT.SR PO SCH (10:30)
[2018-11-30] MEDS ORDERED: HYDROGEL DRESSING 90 GM TUBE TP SCH (14:30)
--- NOTE | 2018-11-30 14:40 | NUR ---
RN NOTE PHARMACY CALLED AND NOTIFIED OF VANCO TROUGH RESULT OF 13, INFORMED THAT IV VANCO IS NOT IN THE CASSETTE, WILL HANG ONCE BROUGHT UP
--- NOTE | 2018-11-30 15:32 | NUR ---
RN NOTE PHARMACY CALLED AGAIN REGARDING VANCO, INFORMED THAT THEY WILL BRING IT UP SOON. WILL HANG ONCE BROUGHT UP
--- NOTE | 2018-11-30 15:59 | NUR ---
RN NOTE VANCO WAS ADMIN AT THIS TIME
[2018-11-30 16:00] VITALS: BP 106/75
[2018-11-30] MEDS: GLUCERNA SHAKE 237 ML CAN PO SCH (16:39)
--- NOTE | 2018-11-30 18:46 | NUR ---
RN CLOSING NOTE PT IN BED AT LOWEST AND LOCKED POSITION WITH SIDE RAILS UPX2, A/O 2-3 WITH PERIODS OF CONFUSION, NO S/S OF ANY DISTRESS OR PAIN NOTED AT THIS TIME, IV ARE PATENT AND INTACT, SAFETY PRECAUTIONS IN PLACE, CALL LIGHT WITHIN REACH, ALL NEEDS ATTENDED TO, WILL ENDORSE TO RECONSTRUCTIVE SURGEON RN FOR RACHANA.
--- NOTE | 2018-11-30 19:30 | NUR ---
RN MS OPENING NOTES RECEIVED PATIENT IN BED AWAKE, ALERT AND ORIENTED X2-3, VERBALLY RESPONSIVE, ABLE TO MAKE NEEDS KNOWN. BREATHING EVEN AND UNLABORED. NO SOB NOTED. TOLERATING ROOM AIR. CURRENTLY WITH NO COMPLAINTS OF PAIN OR DISCOMFORT. NO FACIAL GRIMACING. IV ON LEFT UPPER ARM AND RIGHT HAND INTACT AND PATENT WITH IVF INFUSING. SKIN DRY AND WARM TO TOUCH. AFEBRILE. ALL OTHER NEEDS ATTENDED TO. SAFETY MEASURES IN PLACE. CALL LIGHT AND PHONE WITHIN REACH. WILL CONTINUE TO MONITOR.
[2018-11-30 20:00] VITALS: BP 121/73
[2018-11-30] MEDS: MEROPENEM 1 G in IV NS 0.9% 100 ML IV SCH (20:21)
[2018-11-30] MEDS: ATORVASTATIN 10 MG TABLET PO SCH (21:43)
[2018-11-30] MEDS: TOPIRAMATE 25 MG TABLET PO SCH (21:43)
--- NOTE | 2018-11-30 21:44 | NUR ---
RN MS NOTES BS 89. NO COVERAGE NEEDED. PATIENT IN STABLE CONDITION. ORANGE JUICE PROVIDED. WILL CONTINUE TO MONITOR.
--- NOTE | 2018-11-30 22:16 | NUR ---
RN MS NOTES PATIENT REFUSED TO BE REPOSITIONED AND WOUND TREATMENT. EXPLAINED RISKS AND BENEFITS BUT STILL REFUSED.
[2018-12-01] MEDS: VANCOMYCIN 0.75 GM in IV D5W 250 ML IV SCH ×2 (01:12→14:01)
[2018-12-01] MEDS: IV NS 0.9% 1,000 ML IV PRN ×2 (01:12→13:59)
--- NOTE | 2018-12-01 01:42 | NUR ---
RN MS NOTES RACHANA TRANSFERRED TO NAYELI EISENBERG. PATIENT SLEEPING. EASILY AROUSABLE. IN STABLE CONDITION.
--- NOTE | 2018-12-01 02:30 | NUR ---
MS RN NOTES RECEIVED REPORT FROM ZAY FOR [facility],PATIENT ON BED SLEEPING,BREATHING NORMAL,NOT IN ANY FORM OF DISTRESS.ISOLATION FOR MRSA NARES AND ESBL URINE.
[2018-12-01] MEDS: LEVETIRACETAM (250 MG) 250 MG TABLET PO SCH ×3 (04:40→22:00)
[2018-12-01] MEDS: MEROPENEM 1 G in IV NS 0.9% 100 ML IV SCH ×3 (04:41→21:59)
--- NOTE | 2018-12-01 05:30 | NUR ---
MS RN NOTES MORNING CARE RENDERED BY JEANNINE POSADA,TOLERATED WELL.DRESSING CHANGED DONE SACRAL WOUND.REPOSITIONED.
--- NOTE | 2018-12-01 06:00 | NUR ---
MS RN NOTES ON BED A/O X 2-3,IVF IN PROGRESS ON LEFT UPPER ARM.REMAIN ON ISOLATION PRECAUTION FOR MRSA NARES AND ESBL URINE.POSSIBLE D/C BACK TO [facility] PER DR DSOUZA.IN NO ACUTE DISTRESS.
--- NOTE | 2018-12-01 07:28 | NUR ---
MS RN OPENING NOTES RECEIVED PT AWAKE, IN BED. A/O X2-3. TOLERATING RA, WITH NO ACUTE RESPIRATORY DISTRESS NOTED. PT DENIES PAIN OR ANY DISCOMFORT AT THIS TIME. PT DENIES ANY CONCERNS AND QUESTIONS AT THIS MOMENT WELL. PER NIGHT NURSE, MD/ED JUST CAME AND THE PLAN IS TO DISCHARGE PT BACK TO [facility]. PT MADE AWARE. PIV TO RIGHT HAND G22 SL, FLUSHED WITH NS, INTACT AND OPERATIONAL. IVF NS AT 100ML/HR TU MARTELL MIDLINE, INTACT AND FLUID INFUSING WELL. PT KEPT COMFORTABLE. PT'S BED IN LOWEST, LOCKED POSITION WITH SRX3. CALL LIGHT AND FLUID KEPT WITHIN REACH. WILL CONTINUE PLAN OF CARE.
[2018-12-01 08:00] VITALS: BP 110/73
[2018-12-01] MEDS: BLOOD SUGAR DIAGNOSTIC 1 EACH STRIP IN SCH ×4 (08:05→22:02)
[2018-12-01] MEDS: LEVOTHYROXINE SODIUM 25 MCG TABLET PO SCH (08:26)
[2018-12-01] MEDS: GLUCERNA SHAKE 237 ML CAN PO SCH ×2 (08:26→17:27)
--- NOTE | 2018-12-01 08:30 | NUR ---
MS RN NOTES RECEIVED CALL FROM BROTHER/TELLO/JAMEEL REQUESTING FOR ANOTHER DAY TO STAY. MACY/MAGUE CALLED AND MADE AWARE. JERRICA/KAMILLA AWARE OF PLAN WELL.
[2018-12-01] MEDS: ASCORBIC ACID 500 MG TABLET PO SCH ×2 (08:41→16:55)
[2018-12-01] MEDS: PHENYTOIN EXTENDED RELEASE 100 MG CAPSULE PO SCH ×2 (08:41→22:00)
[2018-12-01] MEDS: FINASTERIDE (5 MG) 5 MG TABLET PO SCH (08:41)
[2018-12-01] MEDS: HEPARIN SODIUM, PORCINE 5000 UNITS/1 ML VIAL SQ SCH ×2 (08:42→22:02)
[2018-12-01] MEDS: GABAPENTIN 400 MG CAPSULE PO SCH ×3 (08:42→16:55)
[2018-12-01] MEDS: HYDROXYUREA 500 MG CAPSULE PO SCH (08:42)
[2018-12-01] MEDS: CYCLOBENZAPRINE 10 MG TABLET PO SCH ×3 (08:44→16:55)
[2018-12-01] MEDS: METOPROLOL TARTRATE 25 MG TABLET PO SCH ×2 (09:00→16:55)
[2018-12-01] MEDS: AMLODIPINE BESYLATE 10 MG TABLET PO SCH (09:00)
[2018-12-01] MEDS: POLYVINYL ALCOHOL 15 ML BOTTLE OP SCH ×2 (09:01→16:56)
--- NOTE | 2018-12-01 09:30 | NUR ---
MS RN NOTES PT REFUSED TO HAVE BLOOD DRAWN. EXPLAINED RISKS AND BENEFITS, PT STILL INSIST TO REFUSE.
[2018-12-01] MEDS: PROSOURCE / PROSTAT (PYXIS) 30 ML UDC PO SCH (09:40)
[2018-12-01] MEDS: CADEXOMER IODINE 40 GM TUBE TP SCH (10:39)
[2018-12-01] MEDS: INSULIN REGULAR, HUMAN 100 UNIT/ML 3 ML VIAL SQ PRN (12:06)
[2018-12-01] MEDS ORDERED: FEE PK DOSING 1 MIN EA MC ONE (12:42)
--- NOTE | 2018-12-01 14:30 | NUR ---
MS RN NOTES BI REPORT DEVELOPER CHANGED PT'S WOUND DRESSINGS. WILL CONTINUE TO MONITOR PT.
[2018-12-01 16:00] VITALS: BP 116/70
--- NOTE | 2018-12-01 18:42 | NUR ---
MS RN CLOSING NOTES PT AWAKE, IN BED. A/O X2-3. TOLERATING RA, WITH NO ACUTE RESPIRATORY DISTRESS NOTED. PT DENIES PAIN OR ANY DISCOMFORT AT THIS TIME. PIV TO RIGHT HAND G22 SL, FLUSHED WITH NS, INTACT AND OPERATIONAL. IVF NS AT 100ML/HR TO MARTELL MIDLINE, INTACT AND FLUID INFUSING WELL. ALL NEEDS AND CARE PROVIDED AND ATTENDED. PT KEPT COMFORTABLE. PT'S BED IN LOWEST, LOCKED POSITION WITH SRX3. CALL LIGHT AND FLUID KEPT WITHIN REACH. WILL ENDORSE TO INCOMING NURSE FOR RACHANA.
[2018-12-01 20:00] VITALS: BP 121/78
--- NOTE | 2018-12-01 20:00 | NUR ---
MS RN NOTES RECEIVED PATIENT AWAKE IN BED WITH NO DISTRESS NOTED. CALL LIGHT WITHIN REACH. NO C/O PAIN OR DISCOMFORT. PERIPHERAL LINES INTACT AND PATENT. CONTACT ISOLATION OBSERVED AND MAINTAINED AT ALL TIMES. BED IN LOW LOCK SETTING. ALL BELONGINGS KEPT NEAR BEDSIDE. WILL CONTINUE TO MONITOR
[2018-12-01] MEDS: TOPIRAMATE 25 MG TABLET PO SCH (22:00)
[2018-12-01] MEDS: ATORVASTATIN 10 MG TABLET PO SCH (22:00)
[2018-12-01] MEDS: MUPIROCIN OINT 2% 22 GM TUBE SCH (22:01)
[2018-12-02] MEDS: VANCOMYCIN 0.75 GM in IV D5W 250 ML IV SCH ×2 (02:50→13:38)
[2018-12-02] MEDS: MEROPENEM 1 G in IV NS 0.9% 100 ML IV SCH ×2 (05:13→12:05)
[2018-12-02] MEDS: LEVETIRACETAM (250 MG) 250 MG TABLET PO SCH ×2 (05:13→12:05)
[2018-12-02] MEDS: IV NS 0.9% 1,000 ML IV PRN (06:05)
--- NOTE | 2018-12-02 06:44 | NUR ---
MS RN NOTES PATIENT ASLEEP IN BED WITH NO DISTRESS NOTED. CALL LIGHT WITHIN REACH. PERIPHERAL LINES INTACT AND PATENT. NO C/O PAIN OR DISCOMFORT. ALL DUE MEDS GIVEN ORDERED WITH NO ASE NOTED. BED IN LOW LOCK SETTING. CONTACT ISOLATION OBSERVED AND MAINTAINED AT ALL TIMES. ALL BELONGINGS KEPT NEAR BEDSIDE. WILL ENDORSE TO ONCOMING SHIFT.
[2018-12-02 07:18] LABS: CALCIUM, SERUM 8.1 mg/dL (8.5-10.1); CREATININE 0.7 mg/dL (0.6-1.3); POTASSIUM 3.7 mmol/L (3.5-5.1)
--- NOTE | 2018-12-02 07:20 | NUR ---
MS RN OPENING NOTES RECEIVED PT ASLEEP, IN BED, EASILY AROUSED. A/O X2-3. TOLERATING RA, WITH NO ACUTE RESPIRATORY DISTRESS NOTED. PT DENIES PAIN OR ANY DISCOMFORT AT THIS TIME. PT DENIES ANY CONCERNS AND QUESTIONS AT THIS MOMENT WELL. PIV TO RIGHT HAND G22 SL, FLUSHED WITH NS, INTACT AND OPERATIONAL. IVF NS AT 100ML/HR TO MARTELL MIDLINE, INTACT AND FLUID INFUSING WELL. PT KEPT COMFORTABLE. PT'S BED IN LOWEST, LOCKED POSITION WITH SRX3. CALL LIGHT AND FLUID KEPT WITHIN REACH. WILL CONTINUE PLAN OF CARE.
--- NOTE | 2018-12-02 07:39 | NUR ---
MS RN NOTES SEEN AND EVALUATED BY MD/ED. ORDERED AND INFORMED PT FOR DISCHARGE TODAY IN THE AFTERNOON. AND TO CONTINUE IV ANTIBIOTICS AT SNF FOR 10 MORE DAYS, AND KEEP THE MARTELL MIDLINE IN PLACE. WILL ENDORSE TO SNF WELL.
[2018-12-02] MEDS: BLOOD SUGAR DIAGNOSTIC 1 EACH STRIP IN SCH ×3 (08:04→17:20)
[2018-12-02] MEDS: LEVOTHYROXINE SODIUM 25 MCG TABLET PO SCH (08:04)
[2018-12-02] MEDS: GLUCERNA SHAKE 237 ML CAN PO SCH ×2 (08:05→17:20)
[2018-12-02 08:17] VITALS: BP 114/65
[2018-12-02] MEDS: HYDROXYUREA 500 MG CAPSULE PO SCH (08:40)
[2018-12-02] MEDS: ASCORBIC ACID 500 MG TABLET PO SCH ×2 (08:40→17:19)
[2018-12-02] MEDS: CYCLOBENZAPRINE 10 MG TABLET PO SCH ×3 (08:41→17:20)
[2018-12-02] MEDS: GABAPENTIN 400 MG CAPSULE PO SCH ×3 (08:41→17:19)
[2018-12-02] MEDS: PHENYTOIN EXTENDED RELEASE 100 MG CAPSULE PO SCH (08:41)
[2018-12-02] MEDS: FINASTERIDE (5 MG) 5 MG TABLET PO SCH (08:41)
[2018-12-02] MEDS: AMLODIPINE BESYLATE 10 MG TABLET PO SCH (08:43)
[2018-12-02] MEDS: PROSOURCE / PROSTAT (PYXIS) 30 ML UDC PO SCH (08:44)
[2018-12-02] MEDS: HEPARIN SODIUM, PORCINE 5000 UNITS/1 ML VIAL SQ SCH (08:45)
[2018-12-02] MEDS: CADEXOMER IODINE 40 GM TUBE TP SCH (08:48)
[2018-12-02] MEDS: MUPIROCIN OINT 2% 22 GM TUBE SCH (08:48)
[2018-12-02] MEDS: POLYVINYL ALCOHOL 15 ML BOTTLE OP SCH ×2 (08:48→17:29)
[2018-12-02] MEDS: METOPROLOL TARTRATE 25 MG TABLET PO SCH ×2 (08:51→17:00)
--- NOTE | 2018-12-02 10:10 | NUR ---
MS RN NOTES BROTHER/TELLO AT BEDSIDE AWARE OF PT'S DISCHARGE PLAN TODAY. RN SPOKE TO MACY/MAGUE WELL REGARDING DISCHARGE. MACY WILL SET UP TRANSPORTATION.
--- NOTE | 2018-12-02 13:45 | NUR ---
MS RN NOTES BROTHER/TELLO/POA OF PT PRESENT AT BEDSIDE AND SIGNED ALL DISCHARGE PAPERS AND INVENTORY LIST OF PT. GAVE COPY OF DISCHARGE PAPER TO POA REQUESTED.
--- NOTE | 2018-12-02 16:00 | NUR ---
MS RN NOTES PT WITH THE HELP OF BROTHER AND SISTER AT BEDSIDE. PICTURES OF WOUNDS TAKEN AND FILED IN THE CHARGE IN COMPLETION FOR DISCHARGE OF PT BACK TO [facility]. REPORT GIVEN TO RONALD TYLER PRESS HAND SUPERVISOR AT [facility] EARLIER AROUND 1400. PT ALL CLEANED, DRY AND KEPT COMFORTABLE AT THIS TIME.
[2018-12-02 17:00] VITALS: BP 102/64
--- NOTE | 2018-12-02 18:58 | NUR ---
MS QUILTING SUPERVISOR NOTES PT TO BE DISCHARGE BACK TO [facility]. PT A/O X2-3. TOLERATING RA, WITH NO ACUTE RESPIRATORY DISTRESS. PT DENIES ANY PAIN OR DISCOMFORT AT THE TIME OF DISCHARGE. DISCHARGE INSTRUCTIONS AND INVENTORY LISTSIGNED BY JAMEEL/NYLAER/TELLO EARLIER AROUND 1330. ONLY BELONGING THE PT HAS IS THE EDWIGE AND WITH THE PT AT THE TIME HE LEFT. ALL NEEDS AND CARE PROVIDED TO PT. WOUND DRESSINGS CHANGED. PICTURES TAKEN AND FILED IN THE CHART. PIV TO RIGHT HAND REMOVED, APPLIED DRY DRESSING ON THE SITE. PIV MARTELL MIDLINE IN PLACE, FLUSHED WITH NS, INTACT AND OPERATIONAL. MARTELL MIDLINE NOT REMOVED AND REPORT GIVEN TO SNF RN RONALD, IV ANTIBIOTICS TO BE CONTINUED AT [facility] PER DR RIVERA, PT TRANSPORTED VIA GURNEY ASSISTED BY 2 EMT/PARAMEDICS. PT LEFT THE UNIT AT 0658. JERRICA/FERNANDO AND MD/ED AWARE OF DISCHARGE.
== END 2018-12-02 18:55 | DRG 602 ==
LOC: ER 14:27 → MED 17:14
PROVIDERS: ADMIT Internal Medicine; ATTEND Internal Medicine
PROC: 05HC33Z Insertion of Infusion Device into Left Basilic Vein, Percutaneous Approach (ICD-10-PCS; principal; 2018-11-28)
DX: L03.116 Cellulitis of left lower limb (principal); G93.41 Metabolic encephalopathy; R53.2 Functional quadriplegia; N39.0 Urinary tract infection, site not specified; I11.0 Hypertensive heart disease with heart failure; I50.9 Heart failure, unspecified; E11.621 Type 2 diabetes mellitus with foot ulcer; E11.42 Type 2 diabetes mellitus with diabetic polyneuropathy; Z98.2 Presence of cerebrospinal fluid drainage device; G40.909 Epilepsy, unspecified, not intractable, without status epilepticus; Z86.73 Personal history of transient ischemic attack (TIA), and cerebral infarction without residual deficits; I25.10 Atherosclerotic heart disease of native coronary artery without angina pectoris; D64.9 Anemia, unspecified; N40.0 Benign prostatic hyperplasia without lower urinary tract symptoms; M62.50 Muscle wasting and atrophy, not elsewhere classified, unspecified site; M24.562 Contracture, left knee; M24.561 Contracture, right knee; L97.529 Non-pressure chronic ulcer of other part of left foot with unspecified severity; L97.519 Non-pressure chronic ulcer of other part of right foot with unspecified severity; G89.4 Chronic pain syndrome; E78.5 Hyperlipidemia, unspecified; B96.4 Proteus (mirabilis) (morganii) as the cause of diseases classified elsewhere; Z16.24 Resistance to multiple antibiotics
CPT/HCPCS: 36415; 70450-TC; 71045-TC; 72125-TC; 80048-TC; 80053-TC; 80061-TC; 80076-TC; 80185-TC; 80202-TC; 81000-TC; 82962-TC; 83605-TC; 83735-TC; 84100-TC; 84443-TC; 84484-TC; 85025-TC; 85730-TC; 87040-TC; 87081-TC; 87086-TC; 87186-TC; 92526; 92611-TC; A6248; A6253; A6402; G0378; J0692; J0696; J1644; J1815; J2185; J2270; J2405; J3370; J7030; J7060

== ENCOUNTER 2019-05-07 16:14 | Inpatient (IN) | payer MEDICARE, OTHER ==
[~2019-05-07] VITALS: Ht 167.6 cm; Wt 72.6 kg
[~2019-05-07 16:14] MED LIST changes: -BENZ1LOZ12 MM; +BISA10SU11 RC; -BISA10SU8 RC; +CYCL10TA9 PO; +DEXT1DRO3 OP; -HYDR4TAB57 PO; +LEVO25TA7 PO; -OMEP20CA10 PO; +PROT946L PO; +TOPI25CA PO; -ZINC220C8 PO
--- NOTE | 2019-05-07 16:16 | NUR ---
JOHN FROM SNF C/O FAILURE TO THRIVE, NOT TAKING HIS MEDS, PT IS AAOX3, NOT IN RESPIRATORY DISTRESS, HOOKED TO MONITOR, KEPT RESTED AND COMFORTABLE, WILL CONTINUE TO MONITOR.
--- NOTE | 2019-05-07 16:29 | NUR ---
ELSIE CALDERON AT BEDSIDE FOR EVAL.
[2019-05-07] MEDS ORDERED: POLY15DR40 EACHEYE (16:33)
[2019-05-07] MEDS ORDERED: LIDO30AD10 TP (16:33)
[2019-05-07] MEDS ORDERED: BROM1.7D9 EACHEYE (16:33)
[2019-05-07] MEDS ORDERED: AMIN30LI2 PO (16:33)
[2019-05-07] MEDS ORDERED: CALC-7 PO (16:33)
--- NOTE | 2019-05-07 16:40 | NUR ---
INTERNET MARKETING STRATEGIST AT BEDSIDE FOR XRAY.
--- NOTE | 2019-05-07 16:45 | NUR ---
IV LINE ESTABLISHED, BLOOD DRAWN AND SENT TO LAB.
[2019-05-07 16:52] LABS: BASOPHILS # (AUTO) 0.1 /CMM (0.0-0.2); BASOPHILS % (AUTO) 0.4 % (0.0-2.0); EOSINOPHILS % (AUTO) 0.1 % (0.0-6.0); HEMATOCRIT 48 % (39-51); HEMOGLOBIN 15.7 g/dL (13.5-17.5); LYMPHOCYTES # (AUTO) 1.9 /CMM (0.8-4.8); LYMPHOCYTES % (AUTO) 7.9 % (20.0-44.0); MEAN CORPUSCULAR HGB CONC 33 g/dl (31.0-36.0); MEAN CORPUSCULAR VOLUME 99 fL (80-96); MONOCYTES # (AUTO) 1.3 /CMM (0.1-1.30); MONOCYTES % (AUTO) 5.6 % (2.0-12.0); NEUTROPHILS # (AUTO) 20.3 /CMM (1.8-8.9); PLATELET COUNT (AUTO) 158 /CMM (150-450); RED BLOOD CELL COUNT(AUTO) 4.81 MIL/uL (4.5-6.0); WHITE BLOOD COUNT (AUTO) 23.6 K/uL (4.3-11.0)
[2019-05-07 17:00] LABS: CALCIUM, SERUM 9.1 mg/dL (8.5-10.1); CREATININE 0.8 mg/dL (0.6-1.3); POTASSIUM 3.5 mmol/L (3.5-5.1)
[2019-05-07] MEDS ORDERED: IV NS 0.9% 1,000 ML BAG IV ONE (17:00)
[2019-05-07 17:11] LABS: ALBUMIN 2.7 g/dL (3.4-5.0); BILIRUBIN,DIRECT 0.2 mg/dL (0.0-0.2); BILIRUBIN,TOTAL 0.7 mg/dL (0.2-1.0); TOTAL PROTEIN, SERUM 8.5 g/dL (6.4-8.2)
--- NOTE | 2019-05-07 17:30 | NUR ---
PT REFUSED CT SCAN PROCEDURE, ELSIE PA AWARE.
--- NOTE | 2019-05-07 17:55 | NUR ---
PT URINE SPECIMEN COLLECTED AND SENT TO LAB.
[2019-05-07] MEDS ORDERED: PIPERACILLIN /TAZOBACTAM 3.375 G in IV D5W 50 ML IV ONE (18:00)
[2019-05-07 18:06] LABS: APPEARANCE,URINE Cloudy (CLEAR); BILIRUBIN,URINE SMALL (NEGATIVE); BLOOD, URINE Large Ery/uL (NEGATIVE); COLOR,URINE Yellow (YELLOW); KETONES,URINE 15 (NEGATIVE); LEUKOCYTE ESTERASE ,URINE Trace (NEGATIVE); NITRITE, URINE Negative (NEGATIVE); PH,URINE 5.5 (5.0-8.0); PROTEIN,URINE 100 mg/dl (NEGATIVE); UGLUCOSE Negative (NEGATIVE); UROBILINOGEN,URINE 0.2 EU/dL (0.2)
[2019-05-07 18:25] LABS: BACTERIA,URINE 2+ /HPF (None Seen); RBC,URINE 21-50 /HPF (0-2)
[2019-05-07 18:41] LABS: BAND % (MANUAL) 1 % (0.0-5.0); LYMPHOCYTES % (MANUAL) 12 % (16-48); MONOCYTES % (MANUAL) 4 % (0-11.0); NEUTROPHILS % (MANUAL) 83 (42-76)
--- NOTE | 2019-05-07 19:00 | NUR ---
PAGED DR HORNER
--- NOTE | 2019-05-07 19:52 | NUR ---
REPORT GIVEN TO NAYELI VELEZ FOR RACHANA. AWAITING ROOM FOR ADMISSION.
--- NOTE | 2019-05-07 19:54 | NUR ---
FOR MORE INFO CALL BROTHER TELLO [phone]
[2019-05-07] MEDS ORDERED: ONDANSETRON HCL/PF 4 MG/2 ML VIAL IVP PRN (20:00)
[2019-05-07] MEDS ORDERED: Z GUARD REMEDY 2 OZ OINT TP PRN (20:00)
[2019-05-07] MEDS ORDERED: BISACODYL SUPP (10 MG) 10 MG/SUPP.RECT SUPP.RECT RC PRN (20:00)
[2019-05-07] MEDS ORDERED: ACETAMINOPHEN 325 MG TABLET PO PRN ×2 (20:00)
[2019-05-07] MEDS ORDERED: MAG HYDROX/AL HYDROX/SIMETH 30 ML UDC PO PRN ×2 (20:00)
[2019-05-07] MEDS ORDERED: DEXTROSE 50%-WATER 50 ML DISP.SYRIN IV PRN (20:00)
[2019-05-07] MEDS ORDERED: MAGNESIUM HYDROXIDE 30 ML UDC PO PRN ×2 (20:00)
--- NOTE | 2019-05-07 20:36 | NUR ---
REPORT GIVEN TO ROSLEINE RN Addendum: 05/07/19 at 2036 by JENNIFER FOR RACHANA
[2019-05-07 20:48] VITALS: BP 119/75
--- NOTE | 2019-05-07 20:48 | NUR ---
ASSISTANT MEDIA PLANNER ADMISSION NOTES RECEIVED PATIENT FROM ER VIA GURNEY AWAKE ALERT AND ORIENTED X3, ABLE TO MAKE NEEDS KNOWN AND CARRY ON CONVERSATION NOTED FORGETFUL AND VERBALLY AGGRESSIVE TOWARDS STAFF. IV SITE TO RIGHT HAND # 20 G INTACT AND PATENT NO REDNESS, NO INFILTRATION PRESENT, ATTEMPTED TO ASSESS WOUNDS SACRAL BUTTOCKS AREA AND BODY ASSESSMENT PATIENT STRONGLY REFUSED, YELLING "NO". TELLO ISBELLYo BROTHER MADE AWARE, PER BROTHER " HES BEEN THROUGH ALOT TODAY LET HIM REST, MAYBE HE WILL LET TOMORROW". BELONGINGS LIST DONE, LINENS CHANGED, ORIENTED TO STAFF AND CALL LIGHT AND KEPT WITHIN REACH, DISCUSSED PLAN OF CARE WITH POA BROTHER TELLO. TELLO PROVIDED POLST WHOM STATED " DNR" TELLO JORGENSEN PHONE NUMBER [phone] [place] BROTHER [phone] ALL NEEDS ATTENDED AT THIS TIME, WILL CONTINUE TO MONITOR AND ATTEND TO NEEDS.
[2019-05-07 21:00] VITALS: BP 119/75
[2019-05-07] MEDS: POLYVINYL ALCOHOL 15 ML BOTTLE OP SCH (21:00)
[2019-05-07] MEDS: HEPARIN SODIUM, PORCINE 5000 UNITS/1 ML VIAL SQ SCH (21:00)
[2019-05-07] MEDS: PROSOURCE / PROSTAT (PYXIS) 30 ML UDC PO SCH (21:00)
[2019-05-07] MEDS ORDERED: FEE PK DOSING 1 MIN EA MC ONE (21:57)
[2019-05-07] MEDS: ATORVASTATIN 10 MG TABLET PO SCH (22:00)
[2019-05-07] MEDS: VANCOMYCIN 1 GM in IV D5W 250 ML IV SCH (22:47)
[2019-05-07] MEDS: IV 1/2NS 1000 ML 1,000 ML IV PRN (22:55)
[2019-05-07] MEDS: GABAPENTIN 400 MG CAPSULE PO SCH (23:05)
[2019-05-07] MEDS: LEVETIRACETAM (250 MG) 250 MG TABLET PO SCH (23:11)
[2019-05-07] MEDS: FINASTERIDE (5 MG) 5 MG TABLET PO SCH (23:15)
--- NOTE | 2019-05-07 23:15 | NUR ---
rn ms notes patient refused artificial tears, insulin administration, prostat, heparin, and lipitor despite education provided refused x 3.
[2019-05-07] MEDS: BLOOD SUGAR DIAGNOSTIC 1 EACH STRIP VI SCH (23:16)
[2019-05-07] MEDS: TOPIRAMATE 25 MG TABLET PO SCH (23:19)
[2019-05-07] MEDS: *INSULIN REGULAR(HUMULIN R)HUM 100 UNIT/ML VIAL SQ PRN (23:21)
[2019-05-07] MEDS: HYDROCODONE/APAP 5/325MG 1 EACH TABLET PO PRN (23:28)
--- NOTE | 2019-05-07 23:31 | NUR ---
STAMPING DIE MAKER BENCH NOTES ON TEACHER INSTRUMENTAL SR 90, WILL ENDORSE TO SHANNON BEARD FOR CONTINUITY OF CARE, PATIENT REMAINS COMFORTABLE AT THIS TIME, MEDICATIONS REVIEWED AND GIVEN ORDERED ALL NEEDS WERE ATTENDED
--- NOTE | 2019-05-07 23:31 | NUR ---
tele/rn notes PATIENT REPORTED PAIN IN LOWER BACK 11/29. GRIMACE AND GUARDING WITH OCCASIONAL IRRITABILITY. NORCO 5-325 MG PO GIVEN. TELE MONITOR AT SR 85. RECEIVED REPORT FROM ROSELINE FOR TRANSFER OF CARE. PATIENT ALERT X2, CAN SPEAK AND VERBALIZE NEEDS, ON ROOM AIR,REFUSED SKIN AND BODY CHECK BUT ABLE TO SWALLOW PILLS.POLST WITH DNR MAY NEED UPDATED ONE TO FOLLOW UP IN AM.
[2019-05-08] MEDS: PIPERACILLIN /TAZOBACTAM 3.375 G in IV D5W 50 ML IV SCH ×4 (00:04→23:52)
--- NOTE | 2019-05-08 00:07 | NUR ---
tele/rn notes RIGHT HAND GAUGE 20 IV
[2019-05-08 00:47] VITALS: BP 143/79
--- NOTE | 2019-05-08 07:30 | NUR ---
ORTHOPEDIC TECH NOTES PT IN BED, AWAKE, ALERT AND VERBALLY RESPONSIVE, DENIES PAIN, NOT IN DISTRESS, IV FLUIDS INFUSING WELL, CALL LIGHT WITHIN REACH, KEPT WARM AND COMFORTABLE.
[2019-05-08 08:00] VITALS: BP 121/84
[2019-05-08] MEDS: PROSOURCE / PROSTAT (PYXIS) 30 ML UDC PO SCH ×2 (09:00→17:00)
[2019-05-08] MEDS: HEPARIN SODIUM, PORCINE 5000 UNITS/1 ML VIAL SQ SCH ×2 (09:00→21:00)
--- NOTE | 2019-05-08 09:04 | NUR ---
WOUND CARE CONSULT: PT FOLLOWED BY PLASTIC SURGERY AND PODIATRY TEAMS FOR WOUNDS. PER NURSING STAFF, PT HAS REFUSED WOUND ASSESSMENT AND PHOTOS. DEFER TO SURGICAL TEAMS FOR WOUND TREATMENT PLAN. DISCUSSED SKIN PROTECTION WITH NURSING STAFF. PT ON THIAGO ISOFLEX LOW AIRLOSS BED. WILL SEE PRN. Addendum: 05/08/19 at 0906 by [address] LOPEZ [address] PATTON AWARE OF SURGICAL/PODIATRY CONSULT REQUEST FOR THIS ADMISSION.
[2019-05-08] MEDS: PHENYTOIN EXTENDED RELEASE 100 MG CAPSULE PO SCH ×3 (10:35→21:01)
[2019-05-08] MEDS: POLYVINYL ALCOHOL 15 ML BOTTLE OP SCH ×4 (10:35→21:01)
[2019-05-08] MEDS: CALCIUM CARB 250MG /VITAMIN D 1 UDTAB PO SCH (10:35)
[2019-05-08] MEDS: AMLODIPINE BESYLATE 10 MG TABLET PO SCH (10:36)
[2019-05-08] MEDS: MULTIVIT W/MINERALS 1 TAB TABLET PO SCH (10:36)
[2019-05-08] MEDS: CYCLOBENZAPRINE 10 MG TABLET PO SCH ×3 (10:36→17:36)
[2019-05-08] MEDS: LEVOTHYROXINE SODIUM 25 MCG TABLET PO SCH (10:36)
[2019-05-08] MEDS: METOPROLOL TARTRATE 25 MG TABLET PO SCH ×2 (10:37→17:00)
[2019-05-08] MEDS: GABAPENTIN 400 MG CAPSULE PO SCH ×3 (10:37→17:37)
[2019-05-08] MEDS: HYDROXYUREA 500 MG CAPSULE PO SCH (10:37)
[2019-05-08] MEDS: ASCORBIC ACID 500 MG TABLET PO SCH ×2 (10:37→17:37)
[2019-05-08] MEDS: LIDOCAINE 5% (PATCH) 1 EA PATCH TP SCH (10:38)
--- NOTE | 2019-05-08 11:13 | NUR ---
PT. STILL REFUSING. NURSE REGGIE IS AWARE, AND NOTIFY THE ORDERING DOCTOR.
[2019-05-08 12:00] VITALS: BP 117/76
[2019-05-08] MEDS: BLOOD SUGAR DIAGNOSTIC 1 EACH STRIP VI SCH ×4 (12:15→21:48)
--- NOTE | 2019-05-08 13:00 | NUR ---
ENRICHMENT TEACHER NOTES PT IN BED, NOT IN DISTRESS, NO COMPLAINT OF PAIN, SEEN BY DR. NICOLE CLAYTON, AWARE THAT PT REFUSING LAB DRAW AND HEAD CT, EXPLAINED TO PT THE NEED FOR THE TEST, STILL REFUSED.
[2019-05-08] MEDS: VANCOMYCIN 1 GM in IV D5W 250 ML IV SCH ×2 (14:21→21:20)
[2019-05-08] MEDS: LEVETIRACETAM (250 MG) 250 MG TABLET PO SCH ×3 (14:30→21:01)
[2019-05-08 16:00] VITALS: BP 107/64
[2019-05-08 16:21] LABS: BASOPHILS % (AUTO) 0.3 % (0.0-2.0); EOSINOPHILS % (AUTO) 1.1 % (0.0-6.0); HEMATOCRIT 44 % (39-51); HEMOGLOBIN 14.4 g/dL (13.5-17.5); LYMPHOCYTES # (AUTO) 1.2 /CMM (0.8-4.8); LYMPHOCYTES % (AUTO) 8.7 % (20.0-44.0); MEAN CORPUSCULAR HGB CONC 33 g/dl (31.0-36.0); MEAN CORPUSCULAR VOLUME 99 fL (80-96); MONOCYTES # (AUTO) 0.5 /CMM (0.1-1.30); MONOCYTES % (AUTO) 3.5 % (2.0-12.0); NEUTROPHILS % (AUTO) 86.4 % (43.0-81.0); PLATELET COUNT (AUTO) 148 /CMM (150-450); WHITE BLOOD COUNT (AUTO) 13.9 K/uL (4.3-11.0)
[2019-05-08 16:31] LABS: CALCIUM, SERUM 8.6 mg/dL (8.5-10.1); CREATININE 0.8 mg/dL (0.6-1.3); MAGNESIUM 2.3 mg/dL (1.8-2.4); PHOSPHORUS 2.8 mg/dL (2.5-4.9); POTASSIUM 3.4 mmol/L (3.5-5.1)
[2019-05-08] MEDS: INSULIN REGULAR, HUMAN 100 UNIT/ML 3 ML VIAL SQ PRN (17:52)
--- NOTE | 2019-05-08 18:31 | NUR ---
ATTORNEY NOTES PT IN BED, RESTING, PM MEDS GIVEN, MIDLINE INSERTED BY MED SPA MANAGERNAYELI RODARTE, PER ORDER OF DR. RIVERA, SEEN BY DR. MYERS, ASSISTED WITH MEALS, KEPT WARM AND COMFORTABLE AT ALL TIMES.
--- NOTE | 2019-05-08 19:43 | NUR ---
MICROGRINDER OPERATOR NOTES RECEIVED PATIENT IN BED, RESTING IN BED, ABLE TO VERBALIZE NEEDS AND REPORTED WOULD LIKE TO HAVE SOME SNACKS FOR TONIGHT. RESPIRATIONS EVEN AND UNLABORED, SKIN WARM TO TOUCH, WITH RIGHT UPPER MIDLINE PLACE, PATENT. MONITORING FOR ANY S/S OF HYPO/HYPERGLYCEMIA. MONITOR FOR ANY CHANGES. BED LOCKED, CALL LIGHTS WITHIN REACH. RECEIVED ENDORSEMENT FROM AM RN FOR RACHANA.
[2019-05-08] MEDS: IV 1/2NS 1000 ML 1,000 ML IV PRN (19:59)
[2019-05-08 20:00] VITALS: BP 120/63
[2019-05-08 20:33] VITALS: BP 120/63
--- NOTE | 2019-05-08 21:10 | NUR ---
tele/rn notes PATIENT REFUSE HEPARIN, DISCUSSED BENEFITS AND EDUCATED THE USE, PATIENT MADE AWARE.
[2019-05-08] MEDS: FINASTERIDE (5 MG) 5 MG TABLET PO SCH (21:45)
[2019-05-08] MEDS: ATORVASTATIN 10 MG TABLET PO SCH (21:45)
[2019-05-08] MEDS: TOPIRAMATE 25 MG TABLET PO SCH (21:45)
[2019-05-08] MEDS: INSULIN GLARGINE, 100 UNIT/ML CARTRIDGE SQ SCH (22:00)
[2019-05-08] MEDS: MENTHOL/CETYLPYRD (CEPACOL) 1 LOZ LOZENGE PO PRN (22:01)
--- NOTE | 2019-05-08 22:15 | NUR ---
TELE/RN NOTES MD MADE AWARE REGARDING HOME LANTUS MEDICATION OF 68 UNITS THAT PATIENT APPETITE IS JUST FAIR, AND LIGHT EATER, MD THURSTON ORDER ONE TIME ORDER LANTUS 50 UNITS FOR TO NIGHT AND HOLD FOR NOW THE 68 UNIT HOME MED FOR TONIGHT ONLY. MONITOR/
[2019-05-08] MEDS ORDERED: INSULIN GLARGINE, 100 UNIT/ML CARTRIDGE SQ SCH (22:30)
--- NOTE | 2019-05-09 00:27 | NUR ---
MONITORED FOR ANY CHANGES. Addendum: 05/09/19 at 0030 by SHANNON AMOS RN Amended: Links added. Addendum: 05/09/19 at 0031 by SHANNON AMOS RN Amended: Links added.
[2019-05-09 04:00] VITALS: BP 114/62
[2019-05-09 04:08] VITALS: BP 141/80
[2019-05-09] MEDS: LEVETIRACETAM (250 MG) 250 MG TABLET PO SCH ×3 (04:34→20:53)
[2019-05-09] MEDS: PHENYTOIN EXTENDED RELEASE 100 MG CAPSULE PO SCH ×3 (04:34→20:54)
[2019-05-09] MEDS: VANCOMYCIN 1 GM in IV D5W 250 ML IV SCH (04:34)
[2019-05-09] MEDS: BLOOD SUGAR DIAGNOSTIC 1 EACH STRIP VI SCH ×4 (05:37→21:42)
[2019-05-09] MEDS: PIPERACILLIN /TAZOBACTAM 3.375 G in IV D5W 50 ML IV SCH ×3 (05:37→18:03)
[2019-05-09] MEDS ORDERED: phenytoin SODIUM IV 500 MG in IV NS 0.9% 50 ML IV STA (05:53)
--- NOTE | 2019-05-09 06:24 | NUR ---
TELE/RN NOTES BLOOD SUGAR CHECK AT 209 , PATIENT NOT EATING AT THIS TIME AND PREFER TO WAIT TILL BREAKFAST TRAY IS NEAR. WILL FOLLOW UP ON COVERAGE.
--- NOTE | 2019-05-09 06:27 | NUR ---
TELE/RN NOTES PATIENT ASSISTED AND CHNAGE AND HYGIENE CARE PROVIDED, PHOTO OF WOUND TAKEN EXCEPT SACRAL AREA.
--- NOTE | 2019-05-09 06:56 | NUR ---
TELE/RN CLOSING NOTES TELE READING AT SR IN 90'S, PATIENT IN BED, HOB ELEVATED, CONTRACTED IN BLE. PATIENT ATTENDED WITH NEEDS, HYGIENE CARE AND IV ANTIBIOTIC THERAPY ADMINISTERED. BED LOCKED, CALL LIGHTS WITHIN REACH. SKIN WARM TOUCH. USES URINAL. BLOOD SUGAR CHECK AT 209 AND PREFER TO HAVE INSULIN COVERAGE JUST PRIOR TO FOOD TRAY.RIGHT UPPER ARM MIDLINE PATENT, DYLANTIN LEVEL LOW, WITH ORDER BY MD LUCIA WINTERS ORDER OF IV DILANTIN, PHARMACY MADE AWARE. WILL ENDORSE TO AM RN FOR RACHANA.
--- NOTE | 2019-05-09 07:30 | NUR ---
CAR WIPER NOTES PT IN BED, AWAKE, ALERT AND VERBALLY RESPONSIVE, NO COMPLAINT OF PAIN AT THIS TIME, RESPIRATIONS NORMAL, CALL LIGHT WITHIN REACH, KEPT MANAGER MANAGED BACKUP SERVICES BED.
[2019-05-09 08:00] VITALS: BP 112/71
[2019-05-09] MEDS: HEPARIN SODIUM, PORCINE 5000 UNITS/1 ML VIAL SQ SCH ×2 (09:00→20:53)
[2019-05-09] MEDS: PROSOURCE / PROSTAT (PYXIS) 30 ML UDC PO SCH ×2 (09:00→16:54)
[2019-05-09 09:44] LABS: CALCIUM, SERUM 8.6 mg/dL (8.5-10.1); CREATININE 0.7 mg/dL (0.6-1.3); POTASSIUM 3.4 mmol/L (3.5-5.1)
[2019-05-09] MEDS: DICLOFENAC 0.1% OPTH DROPS 5 ML BOTTLE EACHEYE SCH (10:01)
[2019-05-09] MEDS: POLYVINYL ALCOHOL 15 ML BOTTLE OP SCH ×3 (10:01→16:53)
[2019-05-09] MEDS: LIDOCAINE 5% (PATCH) 1 EA PATCH TP SCH (10:02)
[2019-05-09] MEDS: METOPROLOL TARTRATE 25 MG TABLET PO SCH ×2 (10:03→16:53)
[2019-05-09] MEDS: CYCLOBENZAPRINE 10 MG TABLET PO SCH ×3 (10:03→16:45)
[2019-05-09] MEDS: HYDROXYUREA 500 MG CAPSULE PO SCH (10:04)
[2019-05-09] MEDS: GABAPENTIN 400 MG CAPSULE PO SCH ×3 (10:04→16:45)
[2019-05-09] MEDS: AMLODIPINE BESYLATE 10 MG TABLET PO SCH (10:05)
[2019-05-09] MEDS: ASCORBIC ACID 500 MG TABLET PO SCH ×2 (10:05→16:45)
[2019-05-09] MEDS: LEVOTHYROXINE SODIUM 25 MCG TABLET PO SCH (10:05)
[2019-05-09] MEDS: MULTIVIT W/MINERALS 1 TAB TABLET PO SCH (10:05)
[2019-05-09] MEDS: CALCIUM CARB 250MG /VITAMIN D 1 UDTAB PO SCH (11:58)
[2019-05-09] MEDS: HYDROCODONE/APAP 5/325MG 1 EACH TABLET PO PRN (11:59)
[2019-05-09 12:00] VITALS: BP 112/73
[2019-05-09] MEDS ORDERED: VANCOMYCIN 0.75 GM in IV D5W 250 ML IV SCH (13:00)
[2019-05-09] MEDS: VITAMINS A AND D 56.7 GM TUBE TP SCH (13:04)
[2019-05-09] MEDS: MENTHOL/CETYLPYRD (CEPACOL) 1 LOZ LOZENGE PO PRN (13:04)
--- NOTE | 2019-05-09 13:47 | NUR ---
JAVA TECH NOTES PT NOTED TO HAVE RASHES AT HIS ARMS, ARMPITS, CHEST AND SIDES, NO COMPLAINT OF ITCHINESS, WARM TO TOUCH, DR. RIVERA INFORMED, ORDERED TO STOP VANCOMYCIN AND CONTINUE ZOSYN. PER DR. MYERS, CT BRAIN IS NOT NEEDED AT THIS TIME, INFORMED, OK TO CANCEL ORDER.
[2019-05-09 16:00] VITALS: BP 115/71
[2019-05-09] MEDS ORDERED: POTASSIUM CHLORIDE 20 MEQ TAB.PRT.SR PO SCH (16:30)
[2019-05-09] MEDS: IV 1/2NS 1000 ML 1,000 ML IV PRN (16:49)
--- NOTE | 2019-05-09 19:00 | NUR ---
PUBLIC SERVICES LIBRARIAN NOTES PM CARE PROVIDED, PM MEDS GIVEN, IV FLUIDS INFUSING WELL, CALL LIGHT WITHIN REACH, PT REFUSING TO BE TURNED. ALL NEEDS ATTENDED.
[2019-05-09] MEDS: INSULIN REGULAR, HUMAN 100 UNIT/ML 3 ML VIAL SQ PRN (19:35)
[2019-05-09 20:00] VITALS: BP 101/63
[2019-05-09] MEDS: CARBOXYMETHYLCELLULOSE SODIUM 0.4 ML DROPERETTE EACHEYE SCH (21:04)
[2019-05-09] MEDS: ATORVASTATIN 10 MG TABLET PO SCH (21:37)
[2019-05-09] MEDS: FINASTERIDE (5 MG) 5 MG TABLET PO SCH (21:37)
[2019-05-09] MEDS: TOPIRAMATE 25 MG TABLET PO SCH (21:37)
[2019-05-09] MEDS: INSULIN GLARGINE, 100 UNIT/ML CARTRIDGE SQ SCH (21:50)
[2019-05-09] MEDS ORDERED: INSULIN GLARGINE, 100 UNIT/ML CARTRIDGE SQ ONE (22:00)
--- NOTE | 2019-05-09 22:26 | NUR ---
MS RN NOTES PT'S BS 122. NOTIFIED DR. GALICIA RE LANTUS INSULIN. WITH ORDER TO HOLD LANTUS 68 UNITS FOR TONIGHT AND GIVE ONE TIME 34 UNITS OF LANTUS SQ. RESUME LANTUS ORDER CHRISTOPHER. UNABLE TO SCAN BARCODE FOR LANTUS. MANUALLY SCANNED BARCODE. WILL CONTINUE TO MONITOR.
[2019-05-10 00:01] VITALS: BP_SYST 106; BP_SYST 155; BP_DIAS 61; BP_DIAS 69
[2019-05-10] MEDS: PIPERACILLIN /TAZOBACTAM 3.375 G in IV D5W 50 ML IV SCH ×5 (00:10→23:31)
[2019-05-10 04:00] VITALS: BP 123/69
[2019-05-10] MEDS: PHENYTOIN EXTENDED RELEASE 100 MG CAPSULE PO SCH ×3 (05:22→20:41)
[2019-05-10] MEDS: LEVETIRACETAM (250 MG) 250 MG TABLET PO SCH ×3 (05:22→20:41)
[2019-05-10] MEDS: BLOOD SUGAR DIAGNOSTIC 1 EACH STRIP VI SCH ×4 (06:01→22:17)
--- NOTE | 2019-05-10 06:26 | NUR ---
WRINKLE CHASER NOTES AWAKE & RESPONSIVE. NOT IN ANY DISTRESS. NO SOB NOTED. DENIES ANY PAIN OR DISCOMFORT AT THIS TIME. ON TELE SR @ 89 WITH IVF INFUSING WELL. PT REFUSING TO HAVE MORNING CARE DONE. EXPLAINED TO PT IMPORTANCE OF AM CARE IN HIS POC BUT PT STILL REFUSED. WILL CONTINUE TO MONITOR.
[2019-05-10 06:44] LABS: CALCIUM, SERUM 8.4 mg/dL (8.5-10.1); CREATININE 0.6 mg/dL (0.6-1.3); POTASSIUM 3.8 mmol/L (3.5-5.1)
[2019-05-10 08:00] VITALS: BP 113/72
--- NOTE | 2019-05-10 08:10 | NUR ---
Tele/RN Opening Note Received patient in bed, AOx2, able to response all stimuli. Pt does no show grimace or any discomfort, skin is warm and dry to touch, IV site intact. Respiratory even and unlabored, stable vital sign, will continues monitor.
[2019-05-10] MEDS: LEVOTHYROXINE SODIUM 25 MCG TABLET PO SCH (08:55)
[2019-05-10] MEDS: HEPARIN SODIUM, PORCINE 5000 UNITS/1 ML VIAL SQ SCH ×3 (08:57→20:44)
[2019-05-10] MEDS: LIDOCAINE 5% (PATCH) 1 EA PATCH TP SCH (08:57)
[2019-05-10] MEDS: VITAMINS A AND D 56.7 GM TUBE TP SCH (08:58)
[2019-05-10] MEDS: CALCIUM CARB 250MG /VITAMIN D 1 UDTAB PO SCH (08:58)
[2019-05-10] MEDS: MULTIVIT W/MINERALS 1 TAB TABLET PO SCH ×2 (08:58→09:00)
[2019-05-10] MEDS: GABAPENTIN 400 MG CAPSULE PO SCH ×3 (08:59→17:37)
[2019-05-10] MEDS: ASCORBIC ACID 500 MG TABLET PO SCH ×2 (08:59→17:33)
[2019-05-10] MEDS: CARBOXYMETHYLCELLULOSE SODIUM 0.4 ML DROPERETTE EACHEYE SCH ×4 (09:01→21:11)
[2019-05-10] MEDS: DICLOFENAC 0.1% OPTH DROPS 5 ML BOTTLE EACHEYE SCH (09:01)
[2019-05-10] MEDS: AMLODIPINE BESYLATE 10 MG TABLET PO SCH (09:06)
[2019-05-10] MEDS: METOPROLOL TARTRATE 25 MG TABLET PO SCH ×2 (09:06→17:33)
[2019-05-10] MEDS: CYCLOBENZAPRINE 10 MG TABLET PO SCH ×3 (09:07→17:33)
[2019-05-10] MEDS: HYDROXYUREA 500 MG CAPSULE PO SCH (09:07)
[2019-05-10] MEDS: PROSOURCE / PROSTAT (PYXIS) 30 ML UDC PO SCH ×2 (09:08→17:00)
[2019-05-10] MEDS: IV 1/2NS 1000 ML 1,000 ML IV PRN (12:22)
[2019-05-10] MEDS: INSULIN REGULAR, HUMAN 100 UNIT/ML 3 ML VIAL SQ PRN (12:27)
[2019-05-10 15:16] VITALS: BP 117/76
[2019-05-10] MEDS: HYDROCODONE/APAP 5/325MG 1 EACH TABLET PO PRN (15:47)
[2019-05-10] MEDS: *INSULIN REGULAR(HUMULIN R)HUM 100 UNIT/ML VIAL SQ PRN ×2 (17:42→22:09)
--- NOTE | 2019-05-10 18:31 | NUR ---
MS/RN Patient stay in bed comfortably, family member at bedside. Still noted wet cough, no s/s of adverse reaction from ATB therapy. Skin is warm and dry to touch, wound dressing changed. Encouraged pt to use urinal. Call light within reach, will continue to monitor. Addendum: 05/10/19 at 1914 by JIMMY OCHOA RN PATIENT REFUSED TO BE TURNED OR REPOSITIONED. DESPITE EXPLANATION OF RISKS AND BENEFITS. ONLY ALLOWED TO BE CHANGED ONCE AFTER MULTIPLE ATTEMPTS AND EDUCATIONS.
--- NOTE | 2019-05-10 19:00 | NUR ---
MS RN NOTES CALL RECEIVED FROM LAB REPORTING POSITIVE MRSA OF THE RIGHT PABLO. MADE AWARE ORDERS RECEIVED. PATIENT PLACED ON CONTACT ISOLATION.
--- NOTE | 2019-05-10 19:33 | NUR ---
MS RN NOTES Patient received resting in bed comfortably with visitor at bedside, A/O x2. Stable on room air, breathing even and unlabored. No complaints of pain or discomfort, no signs of acute distress. Midline located on Right UA and IV SL located on R hand. Redness all over skin from vancomycin, but no complaints of itching or pain. Safety precautions are in place with bed in lowest position, call light within reach, side rails up x2, and breaks on. Will continue to monitor.
[2019-05-10 20:00] VITALS: BP 108/72
[2019-05-10] MEDS: MUPIROCIN OINT 2% 22 GM TUBE SCH (20:41)
[2019-05-10] MEDS: INSULIN GLARGINE, 100 UNIT/ML CARTRIDGE SQ SCH (22:00)
[2019-05-10] MEDS: FINASTERIDE (5 MG) 5 MG TABLET PO SCH (22:03)
[2019-05-10] MEDS: TOPIRAMATE 25 MG TABLET PO SCH (22:03)
[2019-05-10] MEDS: ATORVASTATIN 10 MG TABLET PO SCH (22:03)
--- NOTE | 2019-05-10 22:10 | NUR ---
MS RN NOTES FSBS- 136. 2 Units of insulin given per sliding scale.
[2019-05-10] MEDS ORDERED: INSULIN GLARGINE, 100 UNIT/ML CARTRIDGE SQ SCH (23:00)
--- NOTE | 2019-05-10 23:30 | NUR ---
MS RN NOTES PT'S BS 136. NOTIFIED DR. GALICIA RE LANTUS INSULIN. WITH ORDER TO HOLD LANTUS 68 UNITS FOR TONIGHT AND GIVE ONE TIME 34 UNITS OF LANTUS SQ. RESUME LANTUS ORDER CHRISTOPHER. UNABLE TO SCAN BARCODE FOR LANTUS. MANUALLY SCANNED BARCODE. WILL CONTINUE TO MONITOR.
[2019-05-11] MEDS: IV 1/2NS 1000 ML 1,000 ML IV PRN (02:16)
[2019-05-11] MEDS: LEVETIRACETAM (250 MG) 250 MG TABLET PO SCH ×2 (05:10→13:35)
[2019-05-11] MEDS: PIPERACILLIN /TAZOBACTAM 3.375 G in IV D5W 50 ML IV SCH ×2 (05:10→12:17)
[2019-05-11] MEDS: PHENYTOIN EXTENDED RELEASE 100 MG CAPSULE PO SCH ×2 (05:10→13:35)
[2019-05-11] MEDS: BLOOD SUGAR DIAGNOSTIC 1 EACH STRIP VI SCH ×2 (06:34→12:17)
--- NOTE | 2019-05-11 06:39 | NUR ---
MS RN NOTES FSBS 120, no insulin coverage per sliding scale.
[2019-05-11 07:38] LABS: CALCIUM, SERUM 8.6 mg/dL (8.5-10.1); CREATININE 0.7 mg/dL (0.6-1.3)
[2019-05-11 08:00] VITALS: BP 116/76
[2019-05-11 08:33] LABS: BASOPHILS % (AUTO) 0.3 % (0.0-2.0); EOSINOPHILS % (AUTO) 2.6 % (0.0-6.0); HEMATOCRIT 42 % (39-51); LYMPHOCYTES # (AUTO) 1.6 /CMM (0.8-4.8); LYMPHOCYTES % (AUTO) 15.5 % (20.0-44.0); MEAN CORPUSCULAR HGB CONC 34 g/dl (31.0-36.0); MEAN CORPUSCULAR VOLUME 99 fL (80-96); MONOCYTES # (AUTO) 0.8 /CMM (0.1-1.30); MONOCYTES % (AUTO) 7.7 % (2.0-12.0); NEUTROPHILS # (AUTO) 7.8 /CMM (1.8-8.9); NEUTROPHILS % (AUTO) 73.9 % (43.0-81.0); PLATELET COUNT (AUTO) 171 /CMM (150-450); RED BLOOD CELL COUNT(AUTO) 4.23 MIL/uL (4.5-6.0); WHITE BLOOD COUNT (AUTO) 10.5 K/uL (4.3-11.0)
[2019-05-11] MEDS: LEVOTHYROXINE SODIUM 25 MCG TABLET PO SCH (08:45)
[2019-05-11] MEDS: HYDROXYUREA 500 MG CAPSULE PO SCH (08:50)
[2019-05-11] MEDS: CALCIUM CARB 250MG /VITAMIN D 1 UDTAB PO SCH (08:50)
[2019-05-11] MEDS: AMLODIPINE BESYLATE 10 MG TABLET PO SCH (08:51)
[2019-05-11] MEDS: GABAPENTIN 400 MG CAPSULE PO SCH ×2 (08:53→13:35)
[2019-05-11] MEDS: DICLOFENAC 0.1% OPTH DROPS 5 ML BOTTLE EACHEYE SCH (08:58)
[2019-05-11] MEDS: ASCORBIC ACID 500 MG TABLET PO SCH (08:58)
[2019-05-11] MEDS: CYCLOBENZAPRINE 10 MG TABLET PO SCH ×2 (08:58→13:35)
[2019-05-11] MEDS: MUPIROCIN OINT 2% 22 GM TUBE SCH (08:58)
[2019-05-11] MEDS: HEPARIN SODIUM, PORCINE 5000 UNITS/1 ML VIAL SQ SCH (09:00)
[2019-05-11] MEDS: CARBOXYMETHYLCELLULOSE SODIUM 0.4 ML DROPERETTE EACHEYE SCH ×2 (09:00→12:53)
[2019-05-11] MEDS: LIDOCAINE 5% (PATCH) 1 EA PATCH TP SCH (09:23)
[2019-05-11 09:24] VITALS: BP 116/76
[2019-05-11] MEDS: MULTIVIT W/MINERALS 1 TAB TABLET PO SCH (09:24)
[2019-05-11] MEDS: PROSOURCE / PROSTAT (PYXIS) 30 ML UDC PO SCH (09:24)
[2019-05-11] MEDS: METOPROLOL TARTRATE 25 MG TABLET PO SCH (09:24)
[2019-05-11] MEDS: VITAMINS A AND D 56.7 GM TUBE TP SCH (09:25)
--- NOTE | 2019-05-11 10:47 | NUR ---
eye drops not available. requested from the pharmacy and asked to informed to change it to another brand.
[2019-05-11] MEDS: *INSULIN REGULAR(HUMULIN R)HUM 100 UNIT/ML VIAL SQ PRN (12:56)
--- NOTE | 2019-05-11 15:26 | NUR ---
ambulance personnel in and report given , REPORT GIVEN TO GWEN IN [facility] . INFORMED THAT THE PATIENT HAS REACTION TO VANCOMYCIN AND NEEDS TO BE CONSIDERED AN ALLERGY NOT YET RECORDED AN ALLERGY. EXPRESS UNDERSTANDING. BROTHER TELLO CALLED AND INFORMED ABOUT THE TRANSFER TO WHERE HE CAME FROM [facility], MADE AWARE THAT THE BROTHER IS UNABLE TO SIGN AND TWO RN SIGNED FOR THE TRANSFER CONSENT. WITH INSTRUCTION TO HAVE THE PATIENT ON TRANSFER 2 URINAL AND COVER HIS HEAD WHILE ON TRANSFER. PROVIDED REQUESTED, PATIENT HAS ISOLATION TO MRSA OF THE NARES AND IS ON CONTACT ISOLATION BECAUSE OF IT, MEDICATION RECONCILIATION COMPLETED AND PATIENT WILL CONTINUE THE ANTIBIOTICS ORDERED TILL COMPLETED RIGHT UPPER ARM MIDLINE HAS GOOD BLOOD RETURN FLOW AND NOTED REDNESS TO THE SURROUNDING AREA AND CHARGE NURSE SAID THIS IS DUE TO THE RASHES REACTION TO VANCOMYCIN. STILL NOTED TO HAVE RASHES TO THE LEFT UPPER CHEST ,TRANSFERRED IN STABLE CONDITION TO [facility] FOR CONTINUED CARE, NO RECORDED BM SINCE ADMISSION AND GWEN THE RN GIVEN REPORT TO IS MADE AWARE, Addendum: 05/11/19 at 1547 by NATHALIA BEGUM RN TELLO THE BROTHER CALLED THROUGH THE TELEPHONE NUMBER [phone], PATIENT IS MADE AWARE,
--- NOTE | 2019-05-11 15:47 | NUR ---
DISCHARGE VIA AMBULANCE [facility] IN STABLE CONDITION WITH RIGHT UPPER ARM MIDLINE ON HL TO [facility] FOR CONTINUED CARE AND IV ANTIBIOTICS COMPLETION
[2019-05-11] MEDS ORDERED: INSULIN GLARGINE, 100 UNIT/ML CARTRIDGE SQ SCH (22:00)
== END 2019-05-11 15:40 | DRG 871 ==
LOC: ER 16:25 → TELE 20:33 → MED 05-10 09:02
PROVIDERS: ADMIT Internal Medicine; ATTEND Internal Medicine
PROC: 05HB33Z Insertion of Infusion Device into Right Basilic Vein, Percutaneous Approach (ICD-10-PCS; principal; 2019-05-08)
DX: A41.9 Sepsis, unspecified organism (principal); G93.41 Metabolic encephalopathy; J15.6 Pneumonia due to other Gram-negative bacteria; N17.0 Acute kidney failure with tubular necrosis; E43 Unspecified severe protein-calorie malnutrition; G82.20 Paraplegia, unspecified; I50.32 Chronic diastolic (congestive) heart failure; N39.0 Urinary tract infection, site not specified; D68.59 Other primary thrombophilia; I11.0 Hypertensive heart disease with heart failure; R62.7 Adult failure to thrive; N40.0 Benign prostatic hyperplasia without lower urinary tract symptoms; E78.5 Hyperlipidemia, unspecified; E11.9 Type 2 diabetes mellitus without complications; E03.9 Hypothyroidism, unspecified; G40.909 Epilepsy, unspecified, not intractable, without status epilepticus; Z79.4 Long term (current) use of insulin; Z79.899 Other long term (current) drug therapy; Z98.2 Presence of cerebrospinal fluid drainage device; R13.10 Dysphagia, unspecified; Z98.890 Other specified postprocedural states; Z90.49 Acquired absence of other specified parts of digestive tract; Z87.820 Personal history of traumatic brain injury; I25.10 Atherosclerotic heart disease of native coronary artery without angina pectoris; L89.899 Pressure ulcer of other site, unspecified stage; M62.48 Contracture of muscle, other site
CPT/HCPCS: 36415; 71045-TC; 80048-TC; 80076-TC; 80185-TC; 80202-TC; 81000-TC; 82962-TC; 83605-TC; 83735-TC; 84100-TC; 84484-TC; 85025-TC; 87040-TC; 87081-TC; 87086-TC; A4216; A4349; A6403; G0378; J1165; J1644; J1815; J2543; J3370; J3490; J7030; J7060

== ENCOUNTER 2020-04-28 16:09 | Inpatient (IN) | payer MEDICARE, OTHER ==
[~2020-04-28] VITALS: Ht 167.6 cm; Wt 73.5 kg
[~2020-04-28 16:09] MED LIST changes: +AMIN30LI2 PO; +BROM1.7D9 EACHEYE; +CALC-7 PO; -DEXT1DRO3 OP; -HYDR500C2 PO; +LIDO30AD10 TP; +POLY15DR40 EACHEYE; -PROT946L PO
--- NOTE | 2020-04-28 16:45 | NUR ---
BIBRA FROM SNF TO ER BED 5. UNCONSCIOUS, NON RESPONSIVE DESPITE STRONG PAINFULL STIMULI. NOTED APNEIC AT TIMES. BREATHING IS SHALLOW AND SLOW. SATTING @ 99% ON NON REBREATHER @ 15LMP. PT WAS BROUGHT IN FOR SEIZURE THAT WAS REPORTED LASTING 15MIN. IM VERSED GIVEN TO PT. WAS AT THE BEDSIDE FOR EVAL.ORDERS RECEIVED NOTED, AND CARRIED OUT. IV LINES OBTAINED ON L AC 20, RAC 20G. BLOOD DRAWN AND GIVEN TO AVIONICS REPAIR TECHNICIAN. RECTAL TEMP 103.1. TACHYCARDIC AT 150S.
[2020-04-28] MEDS ORDERED: ACETAMINOPHEN 650 MG/SUPP.RECT RC ONE ×2 (16:50→17:00)
[2020-04-28 16:51] LABS: BASOPHILS % (AUTO) 0.2 % (0.0-2.0); EOSINOPHILS % (AUTO) 0.1 % (0.0-6.0); LYMPHOCYTES # (AUTO) 2.3 /CMM (0.8-4.8); LYMPHOCYTES % (AUTO) 14.7 % (20.0-44.0); MEAN CORPUSCULAR HGB CONC 31 g/dl (31.0-36.0); MEAN CORPUSCULAR VOLUME 93 fL (80-96); MONOCYTES % (AUTO) 6.1 % (2.0-12.0); NEUTROPHILS # (AUTO) 12.5 /CMM (1.8-8.9); NEUTROPHILS % (AUTO) 78.9 % (43.0-81.0); PLATELET COUNT (AUTO) 163 /CMM (150-450); RED BLOOD CELL COUNT(AUTO) 6.78 MIL/uL (4.5-6.0); WHITE BLOOD COUNT (AUTO) 15.9 K/uL (4.3-11.0)
[2020-04-28 16:52] LABS: HEMOGLOBIN 19.7 g/dL (13.5-17.5)
[2020-04-28 16:54] LABS: HEMATOCRIT 63 % (39-51)
[2020-04-28] MEDS ORDERED: DICL2.5D EACHEYE (16:56)
[2020-04-28] MEDS ORDERED: HEXY1LOZ4 MM (16:56)
[2020-04-28] MEDS ORDERED: CHOL100099 PO (16:56)
[2020-04-28] MEDS ORDERED: LACT10SO PO (16:56)
[2020-04-28] MEDS ORDERED: ZINC220C6 PO (16:56)
[2020-04-28] MEDS ORDERED: LEVETIRACETAM (500MG) 1,000 MG in IV NS 0.9% 100 ML IV SCH (17:00)
[2020-04-28 17:07] LABS: ALANINE AMINOTRANSFERASE 32 U/L (12-78); ALBUMIN 3.3 g/dL (3.4-5.0); ALKALINE PHOSPHATASE 109 U/L (46-116); ASPARTATE AMINOTRANSFERASE 39 U/L (15-37); BILIRUBIN,DIRECT 0.1 mg/dL (0.0-0.2); BILIRUBIN,TOTAL 0.3 mg/dL (0.2-1.0); CALCIUM, SERUM 9.3 mg/dL (8.5-10.1); CARBON DIOXIDE 20 mmol/L (21-32); CHLORIDE 105 mmol/L (98-107); CREATININE 1.4 mg/dL (0.6-1.3); POTASSIUM 4.7 mmol/L (3.5-5.1); SODIUM SERUM 145 mmol/L (136-145); TOTAL PROTEIN, SERUM 8.9 g/dL (6.4-8.2); UREA NITROGEN, BLOOD 15 mg/dL (7-18)
[2020-04-28 17:11] LABS: GLUCOSE 400 mg/dL (74-106)
--- NOTE | 2020-04-28 17:11 | NUR ---
RT PAGED FOR ABG
--- NOTE | 2020-04-28 17:20 | NUR ---
UNABLE TO HANG IV AT THIS TIME PICC LINE NURSE AT BEDSIDE DOING STERILE PROCEDURE
[2020-04-28] MEDS ORDERED: NS 0.9% IV ONE (17:30)
[2020-04-28] MEDS ORDERED: MEROPENEM 1,000 MG in IV NS 0.9% 100 ML IV ONE (17:30)
[2020-04-28] MEDS ORDERED: VANCOMYCIN 1 GM in IV D5W 250 ML IV ONE (17:30)
--- NOTE | 2020-04-28 18:00 | NUR ---
COVID SWAB DONE AND SENT TO LAB
[2020-04-28 18:35] LABS: ABG BASE EXCESS -8.3 mmol/L; ABG OXYGEN SATURATION 96.7 % (92.0-98.5); ABG PCO2 64.2 mmHg (35.0-45.0); ABG PH 7.151 (7.350-7.450); ABG PO2 101.5 mmHg (75.0-100.0); COHb 0.8 % (0.5-1.5); MetHb 0.4 % (0.0-1.5); O2Hb 95.5 % (94.0-97.0); SITE, ABG Left Radial; VENT MODE, BG 6 LPM NC
--- NOTE | 2020-04-28 18:45 | NUR ---
received a call from the lab regarding covid 19 result "MD tamanna notified
[2020-04-28] MEDS ORDERED: INSULIN REGULAR, HUMAN 100 UNIT in IV NS 0.9% 99 ML IV PRN ×4 (19:00→23:00)
[2020-04-28] MEDS ORDERED: DEXAMETHASONE SOD PHOSPHATE 10 MG/ML VIAL IV ONE (19:00)
[2020-04-28] MEDS ORDERED: DEXAMETHASONE SOD PHOSPHATE 10 MG/ML VIAL ONE (19:26)
[2020-04-28] MEDS ORDERED: INSULIN REGULAR, HUMAN 100 UNIT/ML 10 ML VIAL ONE (19:27)
--- NOTE | 2020-04-28 19:43 | NUR ---
aware of bs after fluids
[2020-04-28] MEDS ORDERED: MAGNESIUM HYDROXIDE 30 ML UDC PO PRN ×2 (20:00→20:30)
[2020-04-28] MEDS ORDERED: phenytoin SODIUM IV 500 MG in IV NS 0.9% 50 ML IV ONE (20:00)
[2020-04-28] MEDS ORDERED: NA PHOS,M-B/NA PHOS,DI-BA 1 EA ENEMA RC PRN (20:00)
[2020-04-28] MEDS ORDERED: BISACODYL SUPP (10 MG) 10 MG/SUPP.RECT SUPP.RECT RC PRN (20:00)
[2020-04-28] MEDS ORDERED: MAG HYDROX/AL HYDROX/SIMETH 30 ML UDC PO PRN ×2 (20:00→20:30)
[2020-04-28 20:01] LABS: BILIRUBIN,URINE NEGATIVE (NEGATIVE); BLOOD, URINE LARGE Ery/uL (NEGATIVE); COLOR,URINE YELLOW (YELLOW); LEUKOCYTE ESTERASE ,URINE NEGATIVE (NEGATIVE); NITRITE, URINE POSITIVE (NEGATIVE); PH,URINE 6.5 (5.0-8.0); PROTEIN,URINE >=300 mg/dl (NEGATIVE); UGLUCOSE 250 MG/DL mg/dL (NEGATIVE); UROBILINOGEN,URINE 0.2 EU/dL (0.2)
--- NOTE | 2020-04-28 20:13 | NUR ---
ROOM 258
--- NOTE | 2020-04-28 20:13 | NUR ---
room 258
[2020-04-28 20:18] LABS: RBC,URINE 21-50 /HPF (0-2)
[2020-04-28 20:19] LABS: BACTERIA,URINE 3+ /HPF (None Seen); SQUAMOUS EPITHELIAL CELL,UR 0-2 /HPF (None Seen); URINE AMORPHOUS URATE Few /HPF (None Seen)
[2020-04-28 20:22] LABS: BAND % (MANUAL) 10 % (0.0-5.0); LYMPHOCYTES % (MANUAL) 23 % (16-48); MONOCYTES % (MANUAL) 1 % (0-11.0); NEUTROPHILS % (MANUAL) 66 (42-76)
[2020-04-28] MEDS ORDERED: ONDANSETRON HCL/PF 4 MG/2 ML VIAL IVP PRN (20:30)
[2020-04-28] MEDS ORDERED: Z GUARD REMEDY 2 OZ OINT TP PRN (20:30)
--- NOTE | 2020-04-28 20:57 | NUR ---
called for report. no nurse assigned at this time.
[2020-04-28] MEDS ORDERED: INSULIN REGULAR, HUMAN 100 UNIT/ML 3 ML VIAL IV ONE (21:00)
[2020-04-28] MEDS ORDERED: PHENYTOIN EXTENDED RELEASE 100 MG CAPSULE PO SCH (21:00)
--- NOTE | 2020-04-28 21:56 | NUR ---
REPORT GIVEN TO NAYELI VINCENT FOR RACHANA
[2020-04-28] MEDS ORDERED: ZITHROMAX 500 MG/250 ML D5W IV SCH ×2 (22:00)
--- NOTE | 2020-04-28 23:00 | NUR ---
CHARGED SOLE SPOKE WITH BROTHER TELLO (POA) TO VERIFY POSLT STATUS. PT IS INDED DNR. DNI. NO CPR BUT OK FOR SELECTIVE TX SUCH MEDICATION AND OK FOR ICU CARE. HOUSE NOTIFIED WELL ICU CHARGE NURSE.
--- NOTE | 2020-04-28 23:00 | NUR ---
director of curriculum.pt being admitted from er via [place], sepsis. covid positive, and resp/failure. pt is nonverbal. open eyes. does not follow commands. oxygen 4l via nasal cannula. sat 98%. no acute distress noted. telemetry monitor showing nsr. iv lt upper arm picc line. afebrile. fc patent. multiple wound noted. will continue to monitor vitals
--- NOTE | 2020-04-28 23:07 | NUR ---
PT TRANSPORTED TO UNIT ON [address] WITH EMT AND RN AT BEDSIDE W/ ACLS PROTOCOL.
[2020-04-28] MEDS: IV NS 0.9% 1,000 ML IV SCH (23:51)
[2020-04-28 23:52] VITALS: BP 114/65
[2020-04-29] VITALS (39 sets, daily range): BP systolic 100–165; BP diastolic 52–89
[2020-04-29] MEDS ORDERED: INSULIN REGULAR, HUMAN 100 UNIT in IV NS 0.9% 99 ML IV PRN ×2
[2020-04-29] MEDS: BLOOD SUGAR DIAGNOSTIC 1 EACH STRIP IN SCH ×15 (00:25→23:48)
[2020-04-29] MEDS: ATORVASTATIN 10 MG TABLET PO SCH ×2 (00:38→21:30)
[2020-04-29] MEDS: TOPIRAMATE 25 MG TABLET PO SCH ×2 (00:38→21:30)
[2020-04-29] MEDS: FINASTERIDE (5 MG) 5 MG TABLET PO SCH ×2 (00:38→21:30)
[2020-04-29] MEDS: HEPARIN SODIUM, PORCINE 5000 UNITS/1 ML VIAL SQ SCH ×2 (00:39→11:00)
[2020-04-29] MEDS ORDERED: phenytoin SODIUM IV 250 MG/5 ML VIAL IV ONE (00:45)
[2020-04-29] MEDS ORDERED: AZITHROMYCIN 500 MG VIAL ONE (00:58)
[2020-04-29] MEDS ORDERED: IV NS 0.9% 250 ML IV PRN (01:00)
--- NOTE | 2020-04-29 01:00 | NUR ---
sericulturist. ngt placed with out difficulty . for oral meds.
[2020-04-29 01:15] LABS: CALCIUM, SERUM 7.5 mg/dL (8.5-10.1); CREATININE 0.8 mg/dL (0.6-1.3); POTASSIUM 3.4 mmol/L (3.5-5.1)
[2020-04-29] MEDS ORDERED: POTASSIUM PHOSPHATE MM 15 MMOL in IV NS 0.9% 250 ML IV SCH (02:30)
[2020-04-29] MEDS ORDERED: POTASSIUM CL. PREMIX PERIPHER. 50 ML IV PRN (02:30)
[2020-04-29] MEDS ORDERED: K PHOS NEUTRAL 250 MG TABLET NG ONE (03:00)
--- NOTE | 2020-04-29 04:00 | NUR ---
rn picu, am care. oral care, bed bath given, linen changed. remaining same ivf ns 125ml/h. insulin drip running per protocol. hob elevated. ngt clamped. fc patent. urine draining. afebrile, will continue to monitor vitals.
[2020-04-29] MEDS: PHENYTOIN SUSP UDC 100 MG/4 ML UDC GT SCH ×3 (05:47→21:29)
[2020-04-29] MEDS: LEVETIRACETAM (250 MG) 250 MG TABLET PO SCH ×3 (05:48→21:29)
[2020-04-29] MEDS: IV NS 0.9% 1,000 ML IV SCH (05:48)
--- NOTE | 2020-04-29 07:00 | NUR ---
RN NOTES RECEIVED PT ON BED, NON VERBAL , DOES NOT FOLLOW COMMAND, ALLEN LOWER EXTREMITIES CONTACTED, ON TELE ST HR IN 110'S , LONDONO DRINING TO GRAVITY, L UPPER ARM PICC LINE SITE CLEAN, DRY AND INTACT, NS AT 125CC/HR RUNNING , PT IS ON INSULIN GTT AT 4.4 U/HR RUNNING , SR UP x3, CALL LIGHT WITHIN EASY REACH, BED LOCKED AND IN LOWEST POSITION, CONTINUE TO MONITOR .
[2020-04-29 07:55] LABS: BASOPHILS % (AUTO) 0.2 % (0.0-2.0); HEMATOCRIT 50 % (39-51); HEMOGLOBIN 16.1 g/dL (13.5-17.5); LYMPHOCYTES # (AUTO) 1.7 /CMM (0.8-4.8); LYMPHOCYTES % (AUTO) 13.3 % (20.0-44.0); MEAN CORPUSCULAR HGB CONC 32 g/dl (31.0-36.0); MEAN CORPUSCULAR VOLUME 90 fL (80-96); MONOCYTES # (AUTO) 1.5 /CMM (0.1-1.30); MONOCYTES % (AUTO) 11.9 % (2.0-12.0); NEUTROPHILS # (AUTO) 9.3 /CMM (1.8-8.9); NEUTROPHILS % (AUTO) 74.6 % (43.0-81.0); PLATELET COUNT (AUTO) 116 /CMM (150-450); RED BLOOD CELL COUNT(AUTO) 5.53 MIL/uL (4.5-6.0); WHITE BLOOD COUNT (AUTO) 12.5 K/uL (4.3-11.0)
[2020-04-29 08:07] LABS: CALCIUM, SERUM 6.5 mg/dL (8.5-10.1); CREATININE 0.6 mg/dL (0.6-1.3); MAGNESIUM 1.8 mg/dL (1.8-2.4); PHOSPHORUS 2.4 mg/dL (2.5-4.9)
[2020-04-29 08:21] LABS: POTASSIUM 2.6 mmol/L (3.5-5.1)
[2020-04-29] MEDS: ZINC SULFATE 220 MG CAPSULE PO SCH (08:25)
[2020-04-29] MEDS: LEVOTHYROXINE SODIUM 25 MCG TABLET PO SCH (08:25)
[2020-04-29] MEDS: GABAPENTIN 400 MG CAPSULE PO SCH ×3 (08:26→17:25)
[2020-04-29] MEDS: LACTULOSE 10 G/15 ML UDC (PYXIS) PO SCH ×2 (08:26→17:25)
[2020-04-29] MEDS: METOPROLOL TARTRATE 25 MG TABLET PO SCH ×2 (08:26→17:25)
[2020-04-29] MEDS: AMLODIPINE BESYLATE 10 MG TABLET PO SCH (08:27)
[2020-04-29] MEDS: ASCORBIC ACID 500 MG TABLET PO SCH ×2 (08:27→17:24)
[2020-04-29] MEDS: POTASSIUM CL. PREMIX PERIPHER. 50 ML IV PRN ×8 (08:37→17:07)
[2020-04-29] MEDS: PROSOURCE / PROSTAT (PYXIS) 30 ML UDC PO SCH ×2 (08:39→17:25)
[2020-04-29] MEDS ORDERED: AZITHROMYCIN 500 MG in IV D5W 250 ML IV SCH (09:00)
--- NOTE | 2020-04-29 09:34 | NUR ---
WOUND CARE CONSULT: REVIEWED CHART, NURSING DOCUMENTATION AND PHOTOS WHICH INDICATE SACRAL SCARRING, DISCOLORED AREAS AND PIGMENT IRREGULARITIES TO BACK AND BUTTOCKS WELL LOWER EXTREMITY WOUNDS AND SCARS, PRESENT ON ADMISSION. RECOMMEND DPM CONSULT. DR HICKS NOTIFIED OF CONSULT REQUEST. FIRST STEP LOW AIRSS MATTRESS IS ON ORDER. MD IN AGREEMENT WITH PLAN OF CARE. Addendum: 04/29/20 at 0943 by CHARIS LOPEZ WNDNU DR PATTON ALSO NOTIFIED FOR KNEE WOUND AND SACRAL/BUTTOCKS AREA SCARRING.
[2020-04-29] MEDS ORDERED: CEFTRIAXONE 1 G in IV D5W 50 ML IV SCH (10:00)
[2020-04-29] MEDS: IV D5/0.45 NACL 1,000 ML IV PRN ×2 (10:10→20:37)
--- NOTE | 2020-04-29 11:30 | NUR ---
RN NOTES INSULIN GTT D/BENSON PER DR BREAUX ORDER .
[2020-04-29] MEDS: IPRATROPIUM/ALBUTEROL INHALER IH SCH ×3 (12:00→23:40)
[2020-04-29] MEDS ORDERED: DEXTROSE 50%-WATER 50 ML DISP.SYRIN IV PRN (12:00)
[2020-04-29] MEDS: ACETAMINOPHEN 325 MG TABLET PO PRN ×2 (12:09→17:35)
[2020-04-29] MEDS: INSULIN REGULAR, HUMAN 100 UNIT/ML 3 ML VIAL SQ PRN ×2 (12:23→17:27)
--- NOTE | 2020-04-29 13:00 | NUR ---
RN NOTES T=99.3 AXILLARY , DR BREAUX NOTIFIED
[2020-04-29 16:45] LABS: C-REACTIVE PROTEIN 6.7 mg/dL (0.0-0.9)
--- NOTE | 2020-04-29 17:00 | NUR ---
RN NOTES HEAD CT AND EEG DONE PER MD ORDER.
--- NOTE | 2020-04-29 18:33 | NUR ---
RN NOTES T=100.3 AT THIS TIME, PT IS NONVERBAL , ON TELE SR HR IN 90'S , ON O2 2L N/C , O2 SAT WNL, LONDONO DRINING TO GRAVITY, D51/2 NS AT 100CC/HR RUNNING , LEFT ARM PICC LINE SITE CLEAN, DRY AND INTACT, NO SIGNIFICANT CHANGES NOTED ON THIS SHIFT, WILL ENDOSE TO CORRIDOR REDEVELOPMENT MANAGER NURSE FOR CONTINUITY OF CARE.
[2020-04-29 19:53] LABS: CALCIUM, SERUM 7.4 mg/dL (8.5-10.1); CREATININE 0.9 mg/dL (0.6-1.3); POTASSIUM 4.4 mmol/L (3.5-5.1)
--- NOTE | 2020-04-29 20:00 | NUR ---
RN NOTE RECEIVED PT IN BED, EYES CLOSED. NONVERBAL. BREATHING EVEN AND UNLABORED WITH NO SOB OR ACUTE DISTRESS NOTED. ON 4LPM OF VIA NC. SINUS RHYTHM ON DIRECTOR REPORT HR 92. 02 SATURATION AT 98%. NO S/S OF PAIN OR DISCOMFORT. MARTELL PICC PATENT AND INTACT. IV FLUIDS INFUSING WELL. LONDONO IN PLACE. PATENT, DRAINING WELL CLEAR YELLOW URINE. NGT PATENT AND INTACT. PLACEMENT VERIFIED VIA AUSCULTATION. MARKING AT 60. KEPT CLEAN AND DRY. ALL NEEDS RENDERED. REPOSITIONED Q2H . BED IN LOWEST POSITION. WILL CONTINUE TO MONITOR.
[2020-04-29] MEDS: CEFEPIME 2 GM in IV D5W 100 ML IV SCH (20:23)
[2020-04-29] MEDS: VANCOMYCIN 1 GM in IV D5W 250ml IV SCH (20:24)
[2020-04-29] MEDS ORDERED: CHOLECALCIFEROL (VITAMIN D 3) 400 UNIT TABLET PO SCH (21:03)
[2020-04-30] VITALS (19 sets, daily range): BP systolic 115–144; BP diastolic 58–96
[2020-04-30] MEDS: INSULIN REGULAR, HUMAN 100 UNIT/ML 3 ML VIAL SQ PRN ×6 (00:26→23:39)
[2020-04-30] MEDS: PHENYTOIN SUSP UDC 100 MG/4 ML UDC GT SCH ×3 (04:12→21:13)
[2020-04-30] MEDS: VANCOMYCIN 1 GM in IV D5W 250ml IV SCH ×4 (04:12→23:16)
[2020-04-30] MEDS: LEVETIRACETAM (250 MG) 250 MG TABLET PO SCH ×3 (04:12→21:13)
[2020-04-30] MEDS: ACETAMINOPHEN 325 MG TABLET PO PRN (04:33)
[2020-04-30 04:38] LABS: BASOPHILS % (AUTO) 0.2 % (0.0-2.0); HEMATOCRIT 48 % (39-51); HEMOGLOBIN 15.8 g/dL (13.5-17.5); LYMPHOCYTES # (AUTO) 1.7 /CMM (0.8-4.8); LYMPHOCYTES % (AUTO) 19.3 % (20.0-44.0); MEAN CORPUSCULAR HGB CONC 33 g/dl (31.0-36.0); MEAN CORPUSCULAR VOLUME 90 fL (80-96); MONOCYTES % (AUTO) 10.9 % (2.0-12.0); NEUTROPHILS # (AUTO) 6.2 /CMM (1.8-8.9); NEUTROPHILS % (AUTO) 69.6 % (43.0-81.0); PLATELET COUNT (AUTO) 98 /CMM (150-450); RED BLOOD CELL COUNT(AUTO) 5.37 MIL/uL (4.5-6.0); WHITE BLOOD COUNT (AUTO) 8.9 K/uL (4.3-11.0)
[2020-04-30 04:48] LABS: PHOSPHORUS 1.5 mg/dL (2.5-4.9)
[2020-04-30 05:04] LABS: BAND % (MANUAL) 1 % (0.0-5.0); LYMPHOCYTES % (MANUAL) 14 % (16-48); NEUTROPHILS % (MANUAL) 76 (42-76)
[2020-04-30 05:05] LABS: MONOCYTES % (MANUAL) 9 % (0-11.0)
[2020-04-30] MEDS: IPRATROPIUM/ALBUTEROL INHALER IH SCH ×4 (05:10→23:29)
--- NOTE | 2020-04-30 05:30 | NUR ---
PROCESS CONTROLLER NOTE TEMP NOTED AT 100.1 AT 0400AM. ACETAMINOPHEN 650MG PRN GIVEN . TEMP NOTED NOW AT 99.7.
[2020-04-30] MEDS: BLOOD SUGAR DIAGNOSTIC 1 EACH STRIP IN SCH ×4 (05:37→23:37)
--- NOTE | 2020-04-30 07:00 | NUR ---
RN NOTE RECEIVED PT ON BED, EYES CLOSED. NONVERBAL. DOES NOT FOLLOW COMMAND, ON 2L O2 N/C BREATHING EVEN AND UNLABORED , SINUS RHYTHM ON KILN HAND HR 90'S . NO S/S OF PAIN OR DISCOMFORT. L UA PICC SITE CLEAN,DRY AND INTACT, [place] IN PLACE. PATENT, DRAINING WELL CLEAR YELLOW URINE. NGT PATENT AND INTACT. PLACEMENT VERIFIED VIA AUSCULTATION. MARKING AT 60. KEPT CLEAN AND DRY. ALL NEEDS RENDERED. REPOSITIONED Q2H . BED LOCKED AND IN LOWEST POSITION. WILL CONTINUE TO MONITOR.
--- NOTE | 2020-04-30 07:09 | NUR ---
BREEDER SERVICE TECHNICIAN NOTE PT IN BED, ASLEEP BUT EASILY AROUSABLE. BREATHING EVEN AND UNLABORED WITH NO SOB OR ACUTE DISTRESS ON 4LPM. NO SIGNS OF PAIN NOTED. NSR IN MONITOR HR 80S-90S. LEFT UPPER ARM PICC PATENT AND INTACT. LAC AND RIGHT AC SL PATENT. IV FLUIDS INFUSING WELL. URINE OUTPUT 800ML. NO BM NOTED. REPOSITIONED Q2H . KEPT CLEAN AND DRY. ALL NEEDS RENDERED. CALL LIGHT WITHIN REACH. ENDORSED TO AM NURSE FOR CONTINUITY OF CARE.
[2020-04-30] MEDS: IV D5/0.45 NACL 1,000 ML IV PRN ×2 (07:28→21:18)
--- NOTE | 2020-04-30 07:55 | NUR ---
RN NOTES PT TRANSFERRED TO ROOM 111-2, TELE STATUS IN STABLE CONDITION, NO BELONGINGS NOTED . REPORT GIVEN TO NAYELI GUTIERREZ RN FOR CONTINUITY OF CARE .
--- NOTE | 2020-04-30 08:33 | NUR ---
RN TELE1 RECEIVED PATIENT FROM ICU, TRANSPORTED ON BED, ON 2L NASAL CANULA,WITH TELE MONITOR ON, NO CHANGES DURING TRANSFER, NO S/S OF DISTRESS, LONDONO IN PLACE 90ML OUT, NG TUBE IN PLACE INTACT, IV L AND R FORARM 20 GAUGE, L UPPER ARM MIDLIEN. PATIENT RESTING IN BED NOW.
[2020-04-30] MEDS: GABAPENTIN 400 MG CAPSULE PO SCH ×3 (10:04→16:46)
[2020-04-30] MEDS: ZINC SULFATE 220 MG CAPSULE PO SCH (10:04)
[2020-04-30] MEDS: LACTULOSE 10 G/15 ML UDC (PYXIS) PO SCH ×2 (10:04→16:46)
[2020-04-30] MEDS: AMLODIPINE BESYLATE 10 MG TABLET PO SCH (10:06)
[2020-04-30] MEDS: METOPROLOL TARTRATE 25 MG TABLET PO SCH ×2 (10:06→16:46)
[2020-04-30] MEDS: LEVOTHYROXINE SODIUM 25 MCG TABLET PO SCH (10:06)
[2020-04-30] MEDS: ASCORBIC ACID 500 MG TABLET PO SCH ×2 (10:07→16:45)
[2020-04-30] MEDS: CEFEPIME 2 GM in IV D5W 100 ML IV SCH ×2 (10:08→21:13)
[2020-04-30] MEDS: PROSOURCE / PROSTAT (PYXIS) 30 ML UDC PO SCH ×2 (10:08→16:45)
[2020-04-30 12:22] LABS: ALBUMIN 2.2 g/dL (3.4-5.0); BILIRUBIN,TOTAL 0.3 mg/dL (0.2-1.0); CALCIUM, SERUM 7.5 mg/dL (8.5-10.1); CREATININE 0.6 mg/dL (0.6-1.3); POTASSIUM 3.6 mmol/L (3.5-5.1); TOTAL PROTEIN, SERUM 6.2 g/dL (6.4-8.2)
--- NOTE | 2020-04-30 12:30 | NUR ---
RN TELE1 CALLED PHARMACY AND THEY SAID SINCE THE VANCOMYCIN TROUGH IS NOT DONE YET TO HOLD THE MEDICATION UNTIL THIS EVENING.
[2020-04-30] MEDS: NEUTRA PHOS 1 POWD.PACKET PO SCH ×3 (13:00→21:16)
[2020-04-30] MEDS: CHOLECALCIFEROL 1,000 UNIT TABLET (VIT D3) PO SCH (14:00)
--- NOTE | 2020-04-30 14:33 | NUR ---
RN TELE1 SPOKE TO PHARMACY, IS NOW OK TO GIVE THE VANCOMYCIN, AND TOLD THEM THE VITAMIN D WAS NO IN THE PYXIS, PHARMACY SAID THEY WOULD FILL IT.
[2020-04-30 14:52] LABS: C-REACTIVE PROTEIN 7.4 mg/dL (0.0-0.9)
[2020-04-30] MEDS ORDERED: ENOXAPARIN SODIUM 40 MG/0.4 ML DISP.SYRIN SQ SCH (16:00)
--- NOTE | 2020-04-30 19:00 | NUR ---
rn camp opening notes received patient in bed head bed elevated for aspiration precautions, alert ro tactile stimuli, eyes open ,right nare ngt. remains npo. on 4 l via nc appears to be tolerating well at this time, no sob present, no distress present ,ble contractures noted, iv sites to left and right arm #20 g intact and patent , no redness, no infiltration present, left upper arm picc line intact and patent, no redness, no infiltration, ivf running as ordered, dressing is c/d/i. received patient with soft bilateral wrist restraints in place skin intact skin wnl, pulses palpable, oriented to staff and call light and kept within reach, all needs attended at this time, will continue to monitor remains comfortable.
--- NOTE | 2020-04-30 19:30 | NUR ---
RN TELE1 PATIENT IN BED, NO S/S OF DISTRESS, ON 2L NASAL CANULA,WITH TELE MONITOR ON, NO CHANGES DURING SHIFT, LONDONO IN PLACE 450ML OUT, NG TUBE IN PLACE INTACT PATENT, IV L AND R FOREARM 20 GAUGE, L UPPER ARM MIDLIEN, INTACT CLEAN FLUSHES WELL, RUNNING D5 AT 100ML/HR. BED IN LOWEST LOCKED POSITION, CALL LIGHT WITHIN REACH, SAFETY MEASURES IN PLACE.
--- NOTE | 2020-04-30 20:55 | NUR ---
furnace mason notes vancomycin trough is 21 pharmacy made aware , per pharm hold vancomycin.
[2020-04-30] MEDS: TOPIRAMATE 25 MG TABLET PO SCH (21:13)
[2020-04-30] MEDS: FINASTERIDE (5 MG) 5 MG TABLET PO SCH (21:13)
[2020-04-30] MEDS: ATORVASTATIN 10 MG TABLET PO SCH (21:16)
--- NOTE | 2020-04-30 23:13 | NUR ---
rn community notes called lab to clarify vancomycin trough and what is the most recent lab value, states 18. will give vancomycin as ordered.
[2020-05-01] VITALS: BP 153/78
[2020-05-01 04:00] VITALS: BP 138/73
[2020-05-01] MEDS: LEVETIRACETAM (250 MG) 250 MG TABLET PO SCH ×3 (05:01→20:59)
[2020-05-01] MEDS: PHENYTOIN SUSP UDC 100 MG/4 ML UDC GT SCH ×3 (05:01→20:59)
[2020-05-01] MEDS: VANCOMYCIN 1 GM in IV D5W 250ml IV SCH (05:02)
[2020-05-01] MEDS: IPRATROPIUM/ALBUTEROL INHALER IH SCH ×3 (05:06→17:15)
[2020-05-01] MEDS: BLOOD SUGAR DIAGNOSTIC 1 EACH STRIP IN SCH ×3 (05:42→18:05)
[2020-05-01] MEDS: INSULIN REGULAR, HUMAN 100 UNIT/ML 3 ML VIAL SQ PRN ×3 (05:45→18:08)
--- NOTE | 2020-05-01 06:47 | NUR ---
fabricator industrial furnace closing notes patient in bed head bed elevated for aspiration precautions, alert to tactile stimuli, eyes open ,right nare ngt at 60cm in place auscultated with gurgle sound present, remains npo. on 4 l via nc appears to be tolerating well at this time, no sob present, no distress present ,ble contractures noted, wound care done as ordered and offloaded, and repositioned, iv sites to left and right arm #20 g intact and patent , no redness, no infiltration present, left upper arm picc line intact and patent, no redness, no infiltration, ivf running as ordered, dressing is c/d/i. patient with soft bilateral wrist restraints in place skin intact skin wnl, pulses palpable, call light kept within reach, all needs attended at this time, will continue to monitor remains comfortable. on correction worker sr 95, remains comfortable at this time.urine output 1200.
--- NOTE | 2020-05-01 07:10 | NUR ---
RN OPENING NOTES RECEIVED PT IN BED. NONVERBAL. ON 4L O2 VIA NC SATURATING @98%. NO SOB OR ANY S/S OF DISTRESS. TELE MONITOR SHOWS SR TO ST @90-100S. LONDONO CATH IN PLACE DRAINING INTO YELLOWISH COLORED URINE. NG TUBE IN PLACE, INTACT AND PATENT. IV SITES AT L AND R FOREARM #20, MARTELL MIDLINE, ALL INTACT, PATENT AND FLUSHES WELL. D5 1/2 NS @100ML/HR, INFUSING WELL. SAFETY MEASURES IN PLACE. CALL LIGHT WITHIN REACH. BED LOCKED AND IN LOWEST LOCKED POSITION WITH SIDE RAILS UP X2. WILL CONTINUE TO MONITOR
[2020-05-01 08:00] VITALS: BP 131/81
[2020-05-01] MEDS: PROSOURCE / PROSTAT (PYXIS) 30 ML UDC PO SCH ×2 (09:00→17:15)
[2020-05-01] MEDS: LACTULOSE 10 G/15 ML UDC (PYXIS) PO SCH ×2 (10:58→17:14)
[2020-05-01] MEDS: LEVOTHYROXINE SODIUM 25 MCG TABLET PO SCH (10:59)
[2020-05-01] MEDS: AMLODIPINE BESYLATE 10 MG TABLET PO SCH (10:59)
[2020-05-01] MEDS: METOPROLOL TARTRATE 25 MG TABLET PO SCH ×2 (10:59→17:15)
[2020-05-01] MEDS: GABAPENTIN 400 MG CAPSULE PO SCH ×3 (10:59→17:15)
[2020-05-01] MEDS: ASCORBIC ACID 500 MG TABLET PO SCH ×2 (10:59→17:15)
[2020-05-01] MEDS: CEFEPIME 2 GM in IV D5W 100 ML IV SCH ×2 (11:00→20:54)
[2020-05-01] MEDS: ZINC SULFATE 220 MG CAPSULE PO SCH (11:00)
[2020-05-01] MEDS: CHOLECALCIFEROL 1,000 UNIT TABLET (VIT D3) PO SCH (11:00)
[2020-05-01 12:00] VITALS: BP 131/74
[2020-05-01] MEDS: VANCOMYCIN 0.75 GM in IV D5W 250 ML IV SCH ×2 (13:53→21:57)
[2020-05-01 16:00] VITALS: BP 138/73
--- NOTE | 2020-05-01 19:30 | NUR ---
RN OPENING NOTES RECEIVED PT AWAKE IN BED. ALERT AND ORIENTED X 1-2. ISOLATION PRECAUTIONS IN PLACE FOR COVID POSITIVE RESULT. PT IS ON 2L OF O2 VIA NC. TOLERATING WELL. PT IS NOT EXPERIENCING SOB OR RESP DISTRESS AT THIS TIME. TELE MONITORING IN PLACE. BREATHING IS EVEN. PT SHOWS SINUS TACHY HEART RATE OF 102 NORMAL TO PT BASELINE. NGTUBE AUSCULTATED TO CONFIRM PLACEMENT WITH ANOTHER NURSE. PATENT. IV SITE FLUSHED, NO SIGNS OF INFECTION. SAFETY MEASURES IN PLACE. HOB ELEVATED. SIDE RAILS UP X2. BED LOCKED IN LOWEST POSITION WITH BED ALARM ON. CALL LIGHT WITHIN REACH WILL CONTINUE TO MONITOR.
--- NOTE | 2020-05-01 19:36 | NUR ---
RN CLOSING NOTES PT IN BED. NONVERBAL. ON 4L O2 VIA NC SATURATING @98%. NO SOB OR ANY S/S OF DISTRESS. TELE MONITOR SHOWS SR TO ST @90-100S. LONDONO CATH IN PLACE DRAINING INTO YELLOWISH COLORED URINE. NG TUBE IN PLACE, INTACT AND PATENT. IV SITES AT L AND R FOREARM #20, MARTELL MIDLINE, ALL INTACT, PATENT AND FLUSHES WELL. D5 1/2 NS @100ML/HR, INFUSING WELL. SAFETY MEASURES IN PLACE. CALL LIGHT WITHIN REACH. BED LOCKED AND IN LOWEST LOCKED POSITION WITH SIDE RAILS UP X2. WILL CONTINUE TO MONITOR Addendum: 05/01/20 at 1936 by DASHAWN BEACH RN ENDORSED TO NIGHT NURSE FOR RACHANA
[2020-05-01 20:00] VITALS: BP 141/78
[2020-05-01] MEDS: IV D5/0.45 NACL 1,000 ML IV PRN (21:01)
--- NOTE | 2020-05-01 21:33 | NUR ---
RN NOTES RECEIVED REPORT FROM NAYELI JACINTO FOR CONTINUITY OF CARE. PATIENT IS IN STABLE CONDITION.
[2020-05-01] MEDS: TOPIRAMATE 25 MG TABLET PO SCH (21:40)
[2020-05-01] MEDS: ATORVASTATIN 10 MG TABLET PO SCH (21:40)
[2020-05-01] MEDS: FINASTERIDE (5 MG) 5 MG TABLET PO SCH (21:40)
[2020-05-01] MEDS: ACETAMINOPHEN 325 MG TABLET PO PRN (22:36)
[2020-05-01 23:15] LABS: BASOPHILS % (AUTO) 0.4 % (0.0-2.0); EOSINOPHILS % (AUTO) 0.1 % (0.0-6.0); HEMATOCRIT 49 % (39-51); HEMOGLOBIN 16.5 g/dL (13.5-17.5); LYMPHOCYTES # (AUTO) 1.2 /CMM (0.8-4.8); LYMPHOCYTES % (AUTO) 16.8 % (20.0-44.0); MEAN CORPUSCULAR HGB CONC 34 g/dl (31.0-36.0); MEAN CORPUSCULAR VOLUME 88 fL (80-96); MONOCYTES # (AUTO) 0.8 /CMM (0.1-1.30); MONOCYTES % (AUTO) 11.4 % (2.0-12.0); NEUTROPHILS % (AUTO) 71.3 % (43.0-81.0); RED BLOOD CELL COUNT(AUTO) 5.61 MIL/uL (4.5-6.0)
[2020-05-01 23:31] LABS: CALCIUM, SERUM 7.7 mg/dL (8.5-10.1); CREATININE 0.6 mg/dL (0.6-1.3); MAGNESIUM 1.9 mg/dL (1.8-2.4); PHOSPHORUS 1.6 mg/dL (2.5-4.9)
[2020-05-01 23:37] LABS: PLATELET COUNT (AUTO) 89 /CMM (150-450)
[2020-05-02 00:06] VITALS: BP 129/76
[2020-05-02] MEDS: BLOOD SUGAR DIAGNOSTIC 1 EACH STRIP IN SCH ×5 (00:47→23:37)
[2020-05-02] MEDS: INSULIN REGULAR, HUMAN 100 UNIT/ML 3 ML VIAL SQ PRN ×5 (00:49→23:41)
[2020-05-02] MEDS: IPRATROPIUM/ALBUTEROL INHALER IH SCH ×5 (00:49→23:42)
[2020-05-02 04:26] VITALS: BP 146/76
[2020-05-02] MEDS: PHENYTOIN SUSP UDC 100 MG/4 ML UDC GT SCH ×3 (05:12→20:16)
[2020-05-02] MEDS: LEVETIRACETAM (250 MG) 250 MG TABLET PO SCH ×3 (05:12→20:16)
[2020-05-02] MEDS: VANCOMYCIN 0.75 GM in IV D5W 250 ML IV SCH ×2 (05:24→17:16)
[2020-05-02 07:19] LABS: CREATININE 0.7 mg/dL (0.6-1.3); PHOSPHORUS 1.6 mg/dL (2.5-4.9); POTASSIUM 4.1 mmol/L (3.5-5.1)
--- NOTE | 2020-05-02 07:35 | NUR ---
RN NOTES ALL NEEDS ATTENDED AND MET, ABLE TO REST AND SLEPT AT INTERVALS, SAFETY MEASURES ON PLACE, CALL LIGHT WITH IN EASY REACH.REPOSITIONED FOR COMFORT. NGT INTACT AND PATENT IV ACCESS INTACT AND PATENT. ENDORSED TO AM NURSE FOR CONTINUITY OF CARE.
--- NOTE | 2020-05-02 07:48 | NUR ---
PORTABLE TRACKMAN CLOSED NOTES PATIENT IS NON VERBAL AWAKE, WITH NO SIGNS OF DISTRESS ON 4L OF NASAL CANNULA. NO COMPLAIN OF PAIN AT THIS TIME. TELE MONITOR SR/ST. IV R AC #20G, L AC #20G, L UA PICC LINE D5 1/2 NS @ 100 ML/HR. NG TUBE INTACT AND LONDONO CATHETER INTACT. ALLEN SOFT WRIST RESTRAINS ON,WITH GOOD CIRCULATION. SAFETY MEASURES ARE APPLIED, BED IS IN LOW POSITION SIDE RAILS UP X 2. CALL LIGHT WITHIN REACH WILL CONTINUE TO MONITOR. Addendum: 05/02/20 at 1853 by JAMIE ESPOSITO RN PORTABLE TRACKMAN OPENED NOTES PATIENT IS NON VERBAL AWAKE, WITH NO SIGNS OF DISTRESS ON 4L OF NASAL CANNULA. NO COMPLAIN OF PAIN AT THIS TIME. TELE MONITOR SR/ST. IV R AC #20G, L AC #20G, L UA PICC LINE D5 1/2 NS @ 100 ML/HR. NG TUBE INTACT AND LONDONO CATHETER INTACT. ALLEN SOFT WRIST RESTRAINS ON,WITH GOOD CIRCULATION. SAFETY MEASURES ARE APPLIED, BED IS IN LOW POSITION SIDE RAILS UP X 2. CALL LIGHT WITHIN REACH WILL CONTINUE TO MONITOR.
[2020-05-02 08:00] VITALS: BP 157/83
[2020-05-02] MEDS: GABAPENTIN 400 MG CAPSULE PO SCH ×3 (08:41→17:17)
[2020-05-02] MEDS: ASCORBIC ACID 500 MG TABLET PO SCH ×2 (08:41→17:17)
[2020-05-02] MEDS: CHOLECALCIFEROL 1,000 UNIT TABLET (VIT D3) PO SCH (08:41)
[2020-05-02] MEDS: CEFEPIME 2 GM in IV D5W 100 ML IV SCH ×2 (08:41→20:15)
[2020-05-02] MEDS: ZINC SULFATE 220 MG CAPSULE PO SCH (08:41)
[2020-05-02] MEDS: LACTULOSE 10 G/15 ML UDC (PYXIS) PO SCH ×2 (08:44→17:16)
[2020-05-02] MEDS: LEVOTHYROXINE SODIUM 25 MCG TABLET PO SCH (08:46)
[2020-05-02] MEDS: METOPROLOL TARTRATE 25 MG TABLET PO SCH ×2 (09:38→17:17)
[2020-05-02] MEDS: AMLODIPINE BESYLATE 10 MG TABLET PO SCH (09:38)
[2020-05-02] MEDS: PROSOURCE / PROSTAT (PYXIS) 30 ML UDC PO SCH ×2 (09:38→18:12)
[2020-05-02 12:00] VITALS: BP 141/79
[2020-05-02] MEDS ORDERED: K PHOS NEUTRAL 250 MG TABLET PO ONE (14:00)
[2020-05-02] MEDS ORDERED: GLUCERNA 1.2 1,000 ML BOTTLE NG PRN (15:30)
[2020-05-02 16:00] VITALS: BP 138/84
--- NOTE | 2020-05-02 16:36 | NUR ---
PATIENT REFUSED VANCO TROUGH
--- NOTE | 2020-05-02 17:09 | NUR ---
SPOKE WITH ALKA FROM PHARMACY EXPLAINED PT REFUSED VANCO TROUGH, PER ALKA OK TO GIVE VANCO IV AND VANCO TROUGH WILL BE ORDERED TONIGHT AT 9PM.
[2020-05-02] MEDS: IV D5/ 0.9% NACL 1,000 ML IV PRN (17:35)
[2020-05-02] MEDS: GLUCERNA 1.2 1,000 ML BOTTLE NG PRN (18:13)
--- NOTE | 2020-05-02 18:53 | NUR ---
CASE RESOURCE MANAGER CLOSED NOTES PATIENT IS NON VERBAL AWAKE, WITH NO SIGNS OF DISTRESS ON 4L OF NASAL CANNULA. NO COMPLAIN OF PAIN AT THIS TIME. TELE MONITOR SR/ST. IV R AC #20G, L AC #20G, L UA PICC LINE D5+ 0.9 NS @ 50 ML/HR. NG TUBE INTACT FEEDING GLUCERNA 1.2 AT 25 ML/HR AND LONDONO CATHETER INTACT. PATIENT KEPT CLEAN AND DRY. ALL NEEDS, CARE, TREATMENT,AND MEDICATIONS WERE ADMINISTERED ANTICIPATED PER ORDER. SAFETY MEASURES ARE APPLIED, BED IS IN LOW POSITION SIDE RAILS UP X 2. CALL LIGHT WITHIN REACH WILL ENDORSE TO THE CLIENT SERVICE PROFESSIONAL NURSE.
--- NOTE | 2020-05-02 19:30 | NUR ---
TELE/RN OPENING NOTES RECEIVED PATIENT IN BED RESTING, PATIENT IS NON VERBAL AWAKE, WITH IN NO SIGNS OF DISTRESS ON 4L OF NASAL CANNULA. TELE MONITOR SR/ST. IV ACCESS ON RIGHT AC #20G, LEFT AC #20G, LEFT UA PICC LINE D5+ 0.9 NS @ 50 ML/HR. NG TUBE INTACT FEEDING GLUCERNA 1.2 AT 25 ML/HR AND LONDONO CATHETER INTACT. SAFETY MEASURES ARE IN PLACE, BED IS LOCKED AND PLACED IN THE LOW POSITION, SIDE RAILS UP X2. CALL LIGHT IS WITHIN REACH. WILL CONTINUE TO MONITOR THROUGH OUT SHIFT.
[2020-05-02 20:00] VITALS: BP 133/81
[2020-05-02] MEDS: ATORVASTATIN 10 MG TABLET PO SCH (21:58)
[2020-05-02] MEDS: FINASTERIDE (5 MG) 5 MG TABLET PO SCH (21:58)
[2020-05-02] MEDS: TOPIRAMATE 25 MG TABLET PO SCH (21:58)
[2020-05-03] VITALS: BP 135/75
[2020-05-03] MEDS: VANCOMYCIN 0.75 GM in IV D5W 250 ML IV SCH ×2 (00:10→09:00)
[2020-05-03 04:00] VITALS: BP 129/79
[2020-05-03] MEDS: LEVETIRACETAM (250 MG) 250 MG TABLET PO SCH ×3 (05:12→21:10)
[2020-05-03] MEDS: PHENYTOIN SUSP UDC 100 MG/4 ML UDC GT SCH ×3 (05:12→21:10)
[2020-05-03] MEDS: INSULIN REGULAR, HUMAN 100 UNIT/ML 3 ML VIAL SQ PRN ×3 (05:48→18:33)
[2020-05-03] MEDS: BLOOD SUGAR DIAGNOSTIC 1 EACH STRIP IN SCH ×3 (06:12→18:32)
[2020-05-03] MEDS: IPRATROPIUM/ALBUTEROL INHALER IH SCH ×3 (06:12→18:32)
--- NOTE | 2020-05-03 06:45 | NUR ---
TELE/RN OPENING NOTES PATIENT IN BED RESTING. PATIENT IN NO SIGNS OF DISTRESS ON 4L OF NASAL CANNULA. TELE MONITOR ST 105S . IV ACCESS ON LEFT AC #20G, LEFT UA PICC LINE D5 0.9 NS @ 50 ML/HR. NG TUBE INTACT FEEDING GLUCERNA 1.2 AT 25 ML/HR 25CC RESIDUAL AND LONDONO CATHETER INTACT. ALL NEEDS HAVE BEEN MET DURING SHIFT. SAFETY MEASURES ARE IN PLACE, BED IS LOCKED AND PLACED IN THE LOW POSITION, SIDE RAILS UP X2. CALL LIGHT IS WITHIN REACH. WILL ENDORSE CARE TO DAY SHIFT NURSE.
[2020-05-03 07:09] LABS: CALCIUM, SERUM 8.3 mg/dL (8.5-10.1); CREATININE 0.7 mg/dL (0.6-1.3); PHOSPHORUS 1.7 mg/dL (2.5-4.9)
[2020-05-03 08:00] VITALS: BP 150/89
--- NOTE | 2020-05-03 08:00 | NUR ---
TELE/RN OPENING NOTES PATIENT IN BED RESTING. PATIENT IN NO SIGNS OF DISTRESS ON 3L OF NASAL CANNULA. TELE MONITOR SR100 . IV ACCESS ON LEFT AC #20G, LEFT UA PICC LINE D5 0.9 NS @ 50 ML/HR. NG TUBE INTACT FEEDING GLUCERNA 1.2 AT 25 ML/HR 20 CC RESIDUAL .HOB ELEVATED. LONDONO CATHETER DRAINING YELLOW BRANDON URINE .ON DROPLET ISOLATION PRECAUTIONS FOR COVID PCR +..SAFETY MEASURES ARE IN PLACE, BED IS LOCKED AND PLACED IN THE LOW POSITION, SIDE RAILS UP X2. TURNED EVERY TWO HRS. PT CUSSES DURING ADLS AND TURNING.ON ALLEN WRIST RESTRAINTS DUE TO FIGHTING WITH STAFF DURING ADL CARE AND TRYING TO PULL OUT O2 TUBINGS AND IV LINES.RELEASED RESTRAINTS EVERY TWO HRS TO CHECK FOR CIRCULATION. EXPLAINED THE RISKS AND BENEFITS.CALL LIGHT IS WITHIN REACH.
[2020-05-03 09:05] LABS: POTASSIUM 2.8 mmol/L (3.5-5.1)
[2020-05-03] MEDS: CEFEPIME 2 GM in IV D5W 100 ML IV SCH ×2 (10:16→20:33)
[2020-05-03] MEDS: LACTULOSE 10 G/15 ML UDC (PYXIS) PO SCH ×2 (10:17→18:30)
[2020-05-03] MEDS: ASCORBIC ACID 500 MG TABLET PO SCH ×2 (10:18→18:36)
[2020-05-03] MEDS: ZINC SULFATE 220 MG CAPSULE PO SCH (10:18)
[2020-05-03] MEDS: CHOLECALCIFEROL 1,000 UNIT TABLET (VIT D3) PO SCH (10:18)
[2020-05-03] MEDS: AMLODIPINE BESYLATE 10 MG TABLET PO SCH (10:20)
[2020-05-03] MEDS: METOPROLOL TARTRATE 25 MG TABLET PO SCH ×2 (10:21→18:31)
[2020-05-03] MEDS: LEVOTHYROXINE SODIUM 25 MCG TABLET PO SCH (10:33)
--- NOTE | 2020-05-03 11:00 | NUR ---
PT'S VANCO LEVEL IS 23. HELD VANCO IV THAT IS SCHEDULED FOR 9 AM. NOTIFIED JACOB SKAGGS.
[2020-05-03] MEDS: PROSOURCE / PROSTAT (PYXIS) 30 ML UDC PO SCH ×2 (11:59→18:31)
[2020-05-03 12:00] VITALS: BP_SYST 123; BP_SYST 152; BP_DIAS 70; BP_DIAS 89
--- NOTE | 2020-05-03 12:00 | NUR ---
DR NAMITA MEZA ORDERED SINCE YESTERDAY TO CHECK PT SWALLOWING BY NURSES IF PT TOLERATING WELL. ATTEMPTED WITH APPLE SAUCE AND VANILLA PUDDING BUT PT REFUSED AND WAS SCREAMING NO!!!WILL TRY LATER.
[2020-05-03] MEDS: POTASSIUM CL. PREMIX PERIPHER. 50 ML IV PRN (13:41)
[2020-05-03] MEDS ORDERED: NEUTRA PHOS 1 POWD.PACKET NG ONE (14:00)
[2020-05-03] MEDS: HYDROCODONE/APAP 5/325MG TABLET PO PRN (14:15)
[2020-05-03 16:00] VITALS: BP 151/85
--- NOTE | 2020-05-03 17:34 | NUR ---
SWALLOWING ASSESSMENT DONE ON THE PT WITH APPLE SAUCE,JUICE AND VANILLA PUDDING BUT PT REFUSED AND WAS SCREAMING NO!! AND GETS SO UPSET.
--- NOTE | 2020-05-03 17:49 | NUR ---
RANDOM VANCO LEVEL WAS 23 AND CLARIFIED WITH PHARMACIST,JAZMIN SAYING ITS OK TO ADMINISTER THE VANCO IV SCHEDULED AT 1800.NEXT VANCO TROUGH WILL BE 05/04/ AT 5AM.
[2020-05-03] MEDS ORDERED: VANCOMYCIN 0.75 GM in IV D5W 250 ML IV SCH (18:00)
--- NOTE | 2020-05-03 19:05 | NUR ---
RECEIVED PT ON BED AWAKE A/O X2 ON O2 VIA NC @3L SPO2 93% NO SIGN AND SYMPTOMS OF RESPIARTORY DISTRESS, NOT ON PAIN THIS TIME , ON TELE MONITOR WITH READING SINUS TACHY 100'S HAVE BILATERAL WIST RESTRAINT CIRCULATION CHECKED, HAVE RIGHT NARES NGTUBE ON PLACE, PLACEMENT WAS CHECKED AND VERIFIED WITH ONGOING GLUCERNA @ 25ML/HR TOLERATING WELL HAVE LONDONO WITH YELLOW URINE DRAINING VIA GRAVITY, DROPLET ISOLATION MAINTAIN BED ON LOWEST POSITION AND LOCKED SIDE RAILS UPX 2 WILL CONT TO MONITOR
[2020-05-03 20:00] VITALS: BP 153/85
[2020-05-03] MEDS: IV D5/ 0.9% NACL 1,000 ML IV PRN (21:00)
[2020-05-03] MEDS: ATORVASTATIN 10 MG TABLET PO SCH (21:10)
[2020-05-03] MEDS: FINASTERIDE (5 MG) 5 MG TABLET PO SCH (21:10)
[2020-05-04] VITALS: BP 150/70
[2020-05-04] MEDS: BLOOD SUGAR DIAGNOSTIC 1 EACH STRIP IN SCH ×5 (00:16→23:49)
[2020-05-04] MEDS: INSULIN REGULAR, HUMAN 100 UNIT/ML 3 ML VIAL SQ PRN ×5 (00:17→23:53)
[2020-05-04] MEDS: IPRATROPIUM/ALBUTEROL INHALER IH SCH ×5 (00:18→23:58)
[2020-05-04 04:00] VITALS: BP 148/92
[2020-05-04] MEDS: PHENYTOIN SUSP UDC 100 MG/4 ML UDC GT SCH ×3 (04:54→20:11)
[2020-05-04] MEDS: GLUCERNA 1.2 1,000 ML BOTTLE NG PRN (06:47)
--- NOTE | 2020-05-04 07:00 | NUR ---
vancomycin iv not yet given waiting result from vanco trough will endorse to AM shift nurse
--- NOTE | 2020-05-04 07:15 | NUR ---
PT ON BED AWAKE NO SIGN AND SYMPTOM SOF DISTRESS. SPO2 93% WOUND CARE DONE, ALL NEEDS ATTENDED, DROPLET ISOLATION MAINTAINED BED ON LOWEST POSITION AND LOCKED SIDE RAILS UP X2 WILL ENDORSE TO AM SHIFT NURSE
--- NOTE | 2020-05-04 07:30 | NUR ---
PT RECEIVED IN BED, ON 3L O2, NO RESPIRATORY DISTRESS. PT A/Ox2 AND VERBALLY COMBATIVE. SOFT WRIST RESTRAINTS ON BILATERALLY. PT HAS LONDONO CATH IN PLACE. MARTELL PICC RUNNING D5NS AT 50 ML/HR. NO SIGNS OF INFECTION OR INFILTRATION. NG RUNNING GLUCERNA 1.2 @ 25 ML/HR. -NGT AUSCULTATED, MINIMAL RESIDUAL. BED IN LOCKED LOWEST POSITION, CALL LIGHT WITHIN REACH. ALL SAFETY MEASURES IN PLACE. WILL CONTINUE TO MONITOR CLOSELY
[2020-05-04 08:00] VITALS: BP 177/92
[2020-05-04 08:50] LABS: CALCIUM, SERUM 8.4 mg/dL (8.5-10.1); CREATININE 0.7 mg/dL (0.6-1.3); PHOSPHORUS 1.6 mg/dL (2.5-4.9)
[2020-05-04 09:01] LABS: POTASSIUM 2.8 mmol/L (3.5-5.1)
[2020-05-04] MEDS: CHOLECALCIFEROL 1,000 UNIT TABLET (VIT D3) PO SCH (10:39)
[2020-05-04] MEDS: LACTULOSE 10 G/15 ML UDC (PYXIS) PO SCH ×2 (10:39→16:05)
[2020-05-04] MEDS: ZINC SULFATE 220 MG CAPSULE PO SCH (10:40)
[2020-05-04] MEDS: LEVOTHYROXINE SODIUM 25 MCG TABLET PO SCH (10:40)
[2020-05-04] MEDS: LEVETIRACETAM (250 MG) 250 MG TABLET PO SCH ×2 (10:40→20:11)
[2020-05-04] MEDS: METOPROLOL TARTRATE 25 MG TABLET PO SCH ×2 (10:41→16:50)
[2020-05-04] MEDS: AMLODIPINE BESYLATE 10 MG TABLET PO SCH (10:41)
[2020-05-04] MEDS: CEFEPIME 2 GM in IV D5W 100 ML IV SCH ×2 (11:05→20:11)
[2020-05-04] MEDS: ASCORBIC ACID 500 MG TABLET PO SCH ×2 (11:05→16:06)
[2020-05-04] MEDS: PROSOURCE / PROSTAT (PYXIS) 30 ML UDC PO SCH ×2 (11:11→16:33)
[2020-05-04 12:00] VITALS: BP 140/90
[2020-05-04] MEDS: VANCOMYCIN 0.75 GM in IV D5W 250 ML IV SCH ×2 (13:03→23:39)
--- NOTE | 2020-05-04 14:00 | NUR ---
MD MEZA NOTIFIED OF PATIENT K 2.8, PHOS1.6. KPHOS 30 MMOL ORDERED
[2020-05-04 16:00] VITALS: BP 112/67
[2020-05-04] MEDS: POTASSIUM PHOSPHATE MM 15 MMOL in IV NS 0.9% 250 ML IV SCH ×2 (16:05→20:11)
--- NOTE | 2020-05-04 17:30 | NUR ---
ALL WOUND CARE TX COMPLETE. PT COMBATIVE AND UNCOOPERATIVE
[2020-05-04 20:00] VITALS: BP 148/77
--- NOTE | 2020-05-04 20:14 | NUR ---
PT REMAINS IN BED ALERT AND ORIENTED X 1-2 CONFUSED AND COMBATIVE. PT ON 2L NC 95% NO RESPIRATORY DISTRESS OR SOB. PT HAS GLUCERNA RUNNING 25 ML/HR IN RIGHT NARE NGT. PT HAS MARTELL PICC RUNNING D5NS AT 50 ML/HR. PT HAS HAS LAC SL. NO SIGNS OF INFECTION OR INFILTRATION. ALL WOUND CARE TX COMPLETED. PT IN BED LOCKED LOWEST POSITION , CALL LIGHT WITHIN REACH, BED IN LOCKED LOWEST POSITION. REPORT GIVEN TO SERGO FOR RACHANA
--- NOTE | 2020-05-04 20:20 | NUR ---
RN NOTES PATIENT A/OX2 WITH CONFUSION AND CURSING STAFF. BREATHING EVEN AND UNLABORED. NO SOB OR ANY RESPIRATORY DISTRESS. ON O2 2LPM VIA NASAL CANNULA, O2 SAT 96%. WITH NG-TUBE IN RIGHT NARE, PLACEMENT CHECKED AND VERIFIED. HAS GLUCERNA 1.2 @25ML/HR INFUSING WELL, NO RESIDUAL. BED LOCKED AND IN LOWEST POSITION. SIDE RAILS UP X2. ALL SAFETY MEASURES IMPLEMENTED. CALL LIGHT WITHIN REACH. WILL CONTINUE TO MONITOR. Addendum: 05/05/20 at 0045 by LORENA GLEZ RN NOTED WITH BILATERAL SOFT RESTRAINTS, SKIN AND CIRCULATION CHECKED. NO S/S OF SKIN BREAKDOWN. WILL CONTINUE TO MONITOR.
[2020-05-04] MEDS: FINASTERIDE (5 MG) 5 MG TABLET PO SCH (22:18)
[2020-05-04] MEDS: ATORVASTATIN 10 MG TABLET PO SCH (22:19)
[2020-05-05 04:00] VITALS: BP 157/78
[2020-05-05] MEDS: PHENYTOIN SUSP UDC 100 MG/4 ML UDC GT SCH ×3 (05:45→22:06)
[2020-05-05] MEDS: IV D5/ 0.9% NACL 1,000 ML IV PRN (06:01)
[2020-05-05] MEDS: INSULIN REGULAR, HUMAN 100 UNIT/ML 3 ML VIAL SQ PRN (06:04)
[2020-05-05] MEDS: BLOOD SUGAR DIAGNOSTIC 1 EACH STRIP IN SCH ×3 (06:05→18:00)
[2020-05-05] MEDS: IPRATROPIUM/ALBUTEROL INHALER IH SCH ×3 (06:12→18:04)
[2020-05-05 06:21] LABS: CALCIUM, SERUM 8.1 mg/dL (8.5-10.1); CREATININE 0.5 mg/dL (0.6-1.3); MAGNESIUM 2.4 mg/dL (1.8-2.4); PHOSPHORUS 2.5 mg/dL (2.5-4.9); POTASSIUM 3.1 mmol/L (3.5-5.1)
--- NOTE | 2020-05-05 06:58 | NUR ---
RN NOTES PATIENT A/OX2 WITH CONFUSION AND CURSING STAFF. BREATHING EVEN AND UNLABORED. NO SOB OR ANY RESPIRATORY DISTRESS. ON O2 2LPM VIA NASAL CANNULA, O2 SAT 96%. WITH NG-TUBE IN RIGHT NARE, PLACEMENT CHECKED AND VERIFIED. HAS GLUCERNA 1.2 @25ML/HR INFUSING WELL, NO RESIDUAL. BED LOCKED AND IN LOWEST POSITION. SIDE RAILS UP X2. ALL SAFETY MEASURES IMPLEMENTED. CALL LIGHT WITHIN REACH. WILL ENDORSE TO NEXT SHIFT.
--- NOTE | 2020-05-05 07:30 | NUR ---
RN NOTES PATIENT A/OX2 WITH CONFUSION AND CURSING STAFF. BREATHING EVEN AND UNLABORED. NO SOB OR ANY RESPIRATORY DISTRESS. ON O2 2LPM VIA NASAL CANNULA, O2 SAT 96%. WITH NG-TUBE IN RIGHT NARE, PLACEMENT CHECKED AND VERIFIED. HAS GLUCERNA 1.2 @25ML/HR INFUSING WELL, NO RESIDUAL. BED LOCKED AND IN LOWEST POSITION. SIDE RAILS UP X2. ALL SAFETY MEASURES IMPLEMENTED. CALL LIGHT WITHIN REACH. WILL CONTINUE TO MONITOR.
[2020-05-05 07:36] LABS: BASOPHILS % (AUTO) 0.2 % (0.0-2.0); EOSINOPHILS % (AUTO) 0.4 % (0.0-6.0); HEMATOCRIT 44 % (39-51); HEMOGLOBIN 14.7 g/dL (13.5-17.5); LYMPHOCYTES # (AUTO) 1.5 /CMM (0.8-4.8); LYMPHOCYTES % (AUTO) 14.4 % (20.0-44.0); MEAN CORPUSCULAR HGB CONC 34 g/dl (31.0-36.0); MEAN CORPUSCULAR VOLUME 87 fL (80-96); MONOCYTES # (AUTO) 1.2 /CMM (0.1-1.30); MONOCYTES % (AUTO) 11.1 % (2.0-12.0); NEUTROPHILS # (AUTO) 7.9 /CMM (1.8-8.9); NEUTROPHILS % (AUTO) 73.9 % (43.0-81.0); PLATELET COUNT (AUTO) 161 /CMM (150-450); RED BLOOD CELL COUNT(AUTO) 5.01 MIL/uL (4.5-6.0); WHITE BLOOD COUNT (AUTO) 10.7 K/uL (4.3-11.0)
[2020-05-05] MEDS: CHOLECALCIFEROL 1,000 UNIT TABLET (VIT D3) PO SCH (10:01)
[2020-05-05] MEDS: ZINC SULFATE 220 MG CAPSULE PO SCH (10:01)
[2020-05-05] MEDS: LACTULOSE 10 G/15 ML UDC (PYXIS) PO SCH ×2 (10:01→18:03)
[2020-05-05] MEDS: LEVETIRACETAM (250 MG) 250 MG TABLET PO SCH ×2 (10:01→22:08)
[2020-05-05] MEDS: LEVOTHYROXINE SODIUM 25 MCG TABLET PO SCH (10:01)
[2020-05-05] MEDS: ASCORBIC ACID 500 MG TABLET PO SCH ×2 (10:01→18:03)
[2020-05-05] MEDS: PROSOURCE / PROSTAT (PYXIS) 30 ML UDC PO SCH ×2 (10:02→18:03)
[2020-05-05] MEDS: AMLODIPINE BESYLATE 10 MG TABLET PO SCH (10:02)
[2020-05-05] MEDS: METOPROLOL TARTRATE 25 MG TABLET PO SCH ×2 (10:02→18:04)
[2020-05-05] MEDS: CEFEPIME 2 GM in IV D5W 100 ML IV SCH ×2 (10:03→22:06)
[2020-05-05] MEDS: POTASSIUM CL. PREMIX PERIPHER. 50 ML IV SCH ×4 (11:46→14:49)
[2020-05-05 12:00] VITALS: BP 128/77
[2020-05-05] MEDS: VANCOMYCIN 0.75 GM in IV D5W 250 ML IV SCH (14:00)
--- NOTE | 2020-05-05 18:29 | NUR ---
RN CLOSING NOTE PATIENT A/OX2 WITH CONFUSION AND CURSING STAFF. BREATHING EVEN AND UNLABORED. NO SOB OR ANY RESPIRATORY DISTRESS. ON O2 2LPM VIA NASAL CANNULA, O2 SAT 96%. WITH NG-TUBE IN RIGHT NARE, PLACEMENT CHECKED AND VERIFIED. HAS GLUCERNA 1.2 @25ML/HR INFUSING WELL, NO RESIDUAL. BED LOCKED AND IN LOWEST POSITION. SIDE RAILS UP X2. ALL SAFETY MEASURES IMPLEMENTED. CALL LIGHT WITHIN REACH. WILL ENDORSE TO RECOVERY OPERATOR HELPER FOR RACHANA.
[2020-05-05 20:00] VITALS: BP 137/88
[2020-05-05] MEDS: ATORVASTATIN 10 MG TABLET PO SCH (22:07)
[2020-05-05] MEDS: FINASTERIDE (5 MG) 5 MG TABLET PO SCH (22:09)
[2020-05-05] MEDS: GLUCERNA 1.2 1,000 ML BOTTLE NG PRN (22:16)
--- NOTE | 2020-05-05 22:30 | NUR ---
RN OPENING NOTES RECEIVED PATIENT IN BED. ISOLATION PRECAUTIONS IN PLACE FOR POSITIVE COVID RESULT. PATIENT ALERT & ORIENTED X2, UNCOOPERATIVE, FOUL LANGUAGE USED. REORIENTED PT TO HOSPITALIZATION. NO RESP DISTRESS OR SOB NOTED. PT IS ON NASAL CANNULA TOLERATING WELL SATURATING WELL AT 92%. PATIENT LEFT UPPER ARM MIDLINE IN PLACE, INTACT, PATENT, FLUSHED ASEPTICALLY. PT HAS NGTUBE, AUSCULTATED TO CONFIRM PLACEMENT. PATENT. WITH GLUCERNA RUNNING AT 30CC/HR. RESIDUAL OF LESS THAN 30CC NOTED. RESTRAINTS ON CIRCULATION CHECKED. PATIENT SAFETY MEASURES IN PLACE. HOB ELEVATED. SIDE RAILS UP X2. BED LOCKED IN LOWEST POSITION WITH BED ALARM ON. CALL LIGHT WITHIN REACH. WILL CONTINUE TO MONITOR.
[2020-05-06] MEDS: BLOOD SUGAR DIAGNOSTIC 1 EACH STRIP IN SCH ×4 (00:32→18:29)
[2020-05-06] MEDS: INSULIN REGULAR, HUMAN 100 UNIT/ML 3 ML VIAL SQ PRN ×2 (00:50→06:21)
[2020-05-06] MEDS: IPRATROPIUM/ALBUTEROL INHALER IH SCH ×4 (00:50→18:28)
[2020-05-06] MEDS: HYDROCODONE/APAP 5/325MG TABLET PO PRN (01:50)
[2020-05-06] MEDS: IV D5/ 0.9% NACL 1,000 ML IV PRN (01:52)
[2020-05-06 04:00] VITALS: BP 145/92
[2020-05-06] MEDS: PHENYTOIN SUSP UDC 100 MG/4 ML UDC GT SCH ×3 (05:35→21:21)
[2020-05-06 06:37] LABS: BASOPHILS % (AUTO) 0.4 % (0.0-2.0); HEMATOCRIT 44 % (39-51); HEMOGLOBIN 14.6 g/dL (13.5-17.5); LYMPHOCYTES # (AUTO) 1.7 /CMM (0.8-4.8); MEAN CORPUSCULAR HGB CONC 34 g/dl (31.0-36.0); MEAN CORPUSCULAR VOLUME 88 fL (80-96); MONOCYTES # (AUTO) 1.2 /CMM (0.1-1.30); MONOCYTES % (AUTO) 11.8 % (2.0-12.0); NEUTROPHILS # (AUTO) 7.3 /CMM (1.8-8.9); NEUTROPHILS % (AUTO) 70.8 % (43.0-81.0); PLATELET COUNT (AUTO) 172 /CMM (150-450); RED BLOOD CELL COUNT(AUTO) 4.94 MIL/uL (4.5-6.0); WHITE BLOOD COUNT (AUTO) 10.4 K/uL (4.3-11.0)
[2020-05-06 07:18] LABS: CALCIUM, SERUM 8.3 mg/dL (8.5-10.1); CREATININE 0.5 mg/dL (0.6-1.3); MAGNESIUM 2.3 mg/dL (1.8-2.4); PHOSPHORUS 1.9 mg/dL (2.5-4.9)
[2020-05-06 07:25] LABS: POTASSIUM 2.8 mmol/L (3.5-5.1)
--- NOTE | 2020-05-06 07:30 | NUR ---
RN OPENING NOTES PATIENT IS IN BED. POSITIVE COVID RESULT. PATIENT ALERT & ORIENTED X2, AND VERY UNCOOPERATIVE, USES PROFANITY . NO RESP DISTRESS OR SOB NOTED. PT IS ON NASAL CANNULA TOLERATING WELL SATURATING WELL AT 93%. PATIENT LEFT UPPER ARM MIDLINE IN PLACE, INTACT, PATENT, FLUSHED ASEPTICALLY. PT HAS NGTUBE, AUSCULTATED TO CONFIRM PLACEMENT. PATENT. WITH GLUCERNA RUNNING AT 30CC/HR. RESIDUAL OF LESS THAN 30CC NOTED. RESTRAINTS ON CIRCULATION CHECKED. PATIENT SAFETY MEASUREMENTS ARE IN PLACE. BED IS IN THE LOWEST POSITION, ON THE BREAK AND RAILS ARE UP X2.CALL LIGHT WITHIN THE REACH.WILL CONTINUE TO MONITOR
--- NOTE | 2020-05-06 09:14 | NUR ---
Pt. refused xray. RN aware.
[2020-05-06] MEDS: LACTULOSE 10 G/15 ML UDC (PYXIS) PO SCH ×2 (09:28→17:11)
[2020-05-06] MEDS: CHOLECALCIFEROL 1,000 UNIT TABLET (VIT D3) PO SCH (09:30)
[2020-05-06] MEDS: ZINC SULFATE 220 MG CAPSULE PO SCH (09:30)
[2020-05-06] MEDS: LEVETIRACETAM (250 MG) 250 MG TABLET PO SCH ×2 (09:31→21:21)
[2020-05-06] MEDS: ASCORBIC ACID 500 MG TABLET PO SCH ×2 (09:31→17:11)
[2020-05-06] MEDS: METOPROLOL TARTRATE 25 MG TABLET PO SCH ×2 (09:32→17:12)
[2020-05-06] MEDS: AMLODIPINE BESYLATE 10 MG TABLET PO SCH (09:33)
[2020-05-06] MEDS: PROSOURCE / PROSTAT (PYXIS) 30 ML UDC PO SCH ×2 (09:34→17:38)
[2020-05-06] MEDS: LEVOTHYROXINE SODIUM 25 MCG TABLET PO SCH (09:41)
--- NOTE | 2020-05-06 10:15 | NUR ---
RN NOTES PASSED SWALLOW EVALUATION
--- NOTE | 2020-05-06 10:53 | NUR ---
RN NOTES REFUSED CXRAY
[2020-05-06] MEDS: POTASSIUM CL. PREMIX PERIPHER. 50 ML IV SCH ×6 (11:13→14:31)
[2020-05-06] MEDS ORDERED: Potassium Chloride 20 MEQ in IV D5/ 0.9% NACL 1,000 ML IV PRN (11:26)
[2020-05-06 12:00] VITALS: BP 146/82
[2020-05-06] MEDS ORDERED: NEUTRA PHOS 1 POWD.PACKET PO ONE (13:30)
[2020-05-06] MEDS ORDERED: DEXTROSE 50%-WATER 50 ML DISP.SYRIN IV PRN (14:30)
--- NOTE | 2020-05-06 17:00 | NUR ---
RN NOTES BROTHER CALLED TELLO UPDATED THE STATUS
--- NOTE | 2020-05-06 19:21 | NUR ---
RN CLOSING NOTES PATIENT IS IN BED. POSITIVE COVID RESULT. PATIENT ALERT & ORIENTED X2, AND VERY UNCOOPERATIVE, USES PROFANITY . NO RESP DISTRESS OR SOB NOTED. PT IS ON NASAL CANNULA TOLERATING WELL SATURATING WELL AT 93%. PATIENT LEFT UPPER ARM MIDLINE IN PLACE, INTACT, PATENT, FLUSHED ASEPTICALLY. PT HAS NGTUBE, AUSCULTATED TO CONFIRM PLACEMENT. PATENT. WITH GLUCERNA RUNNING AT 30CC/HR. RESIDUAL OF LESS THAN 30CC NOTED. RESTRAINTS ON CIRCULATION CHECKED. PATIENT SAFETY MEASUREMENTS ARE IN PLACE. BED IS IN THE LOWEST POSITION, ON THE BREAK AND RAILS ARE UP X2.CALL LIGHT WITHIN THE REACH.WILL ENDORSE TO PM NURSE
[2020-05-06 20:00] VITALS: BP 139/69
--- NOTE | 2020-05-06 20:00 | NUR ---
RN NOTES RECEIVED PATIENT IN BED. ALERT ORIENTED X2, UNCOOPERATIVE AND SAYING FOUL WORDS. SPOKE TO PATIENT IN A CALM MANNER. ON O2 VIA NC AT 2 LPM. NO RESPIRATORY DISTRESS NOTED. NO SOB. WITH NGTUBE ON RIGHT NARE. AUSCULTATED FOR PATENCY, PATENT AND IN PLACE. NO RESIDUALS NOTED. FEEDING OF GLUCERNA ON RUNNING AT 30ML/HR. TOLERATING WELL. HOB ELEVATED. PATIENT WITH PICC LINE ON LEFT UPPER ARM AND IV ON LEFT AC. BOTH PATENT AND INTACT, FLUSHED. WITH BILATERAL WRIST SOFT RESTRAINT, CIRCULATION CHECKED. ALL SAFETY MEASURES IMPLEMENTED PER PROTOCOL, BED LOCKED IN LOWEST POSITION. SIDE RAILS UP X 2. CALL LIGHT WITHIN REACH.
[2020-05-06] MEDS: ATORVASTATIN 10 MG TABLET PO SCH (21:20)
[2020-05-06] MEDS: FINASTERIDE (5 MG) 5 MG TABLET PO SCH (21:20)
[2020-05-07] MEDS: INSULIN REGULAR, HUMAN 100 UNIT/ML 3 ML VIAL SQ PRN ×4 (00:36→17:26)
[2020-05-07] MEDS: IPRATROPIUM/ALBUTEROL INHALER IH SCH ×3 (00:38→12:42)
[2020-05-07] MEDS: GLUCERNA 1.2 1,000 ML BOTTLE NG PRN (00:52)
[2020-05-07] MEDS ORDERED: Potassium Chloride 20 MEQ in IV D5/0.45 NACL 1,000 ML IV PRN (02:30)
--- NOTE | 2020-05-07 02:30 | NUR ---
RN NOTE INFORMED NSG TEACHING FELLOW RE RESIDENT'S ORDER OR D5 NS WITH 20MEQ KCL. PER TEACHING FELLOW THEY ONLY HAVE THE D5 1/2 NS WITH 20 MEQ KCL. PLASTERER APPRENTICE MD DR MAYS INFORMED, ORDERED TO CHANGE TO D5 1/2 NS WITH 20 MEQ KCL. ORDER NOTED AND CARRIED OUT.
[2020-05-07] MEDS ORDERED: IV PREMIX D5 1/2NS + KCL 1,000 ML IV ONE (02:37)
[2020-05-07 04:00] VITALS: BP 132/81
[2020-05-07] MEDS: BLOOD SUGAR DIAGNOSTIC 1 EACH STRIP IN SCH ×3 (05:55→12:45)
--- NOTE | 2020-05-07 07:22 | NUR ---
RN CLOSING NOTES PATIENT IN BED.ON FREQUENT VISUAL CHECK. CONTINUE ON O2 VIA NC AT 2LPM SATING AT 93 . NO SIGNS OF RESPIRATORY DISTRESS. NGT FEEDING TOLERATING WELL AT 50 ML/HR. PATENT AND INPLACE. KEPT HOB ELEVATED NO SIGNS OF ASPIRATION. WITH BILATERAL WRIST SOFT RESTRAINT, CIRCULATION CHECKED. NO SKIN BREAKDOWN NOTED. LONDONO CATH INDWELLING WELL. WITH CLEAR URINE OUTPUT. ISOLATION PRECAUTION OBSERVED FOR COVID. ALL SAFETY MEASURES IMPLEMENTED PER PROTOCOL, BED LOCKED IN LOWEST POSITION. SIDE RAILS UP X 2. CALL LIGHT WITHIN REACH. WILL ENDORSE TO NEXT SHIFT NURSE FOR RACHANA.
[2020-05-07 08:00] VITALS: BP 145/83
--- NOTE | 2020-05-07 08:00 | NUR ---
STERILIZER OPERATOR NOTES Patient received in bed. No s/s of sob. NGT feeding angel luis well. Head of bed kept elevated for aspiration prevention. Camacho cath intact and hanging to gravity with clear yellow urine. Noted with bilateral soft wrist restraint, no s/s of skin breakdown. Circulation checked. Bed in lowest position. Call light with in reach.
[2020-05-07] MEDS: LACTULOSE 10 G/15 ML UDC (PYXIS) PO SCH (09:10)
[2020-05-07] MEDS: PHENYTOIN SUSP UDC 100 MG/4 ML UDC GT SCH (09:10)
[2020-05-07] MEDS: AMLODIPINE BESYLATE 10 MG TABLET PO SCH (09:11)
[2020-05-07] MEDS: ASCORBIC ACID 500 MG TABLET PO SCH (09:11)
[2020-05-07] MEDS: CHOLECALCIFEROL 1,000 UNIT TABLET (VIT D3) PO SCH (09:11)
[2020-05-07] MEDS: LEVETIRACETAM (250 MG) 250 MG TABLET PO SCH (09:11)
[2020-05-07] MEDS: ZINC SULFATE 220 MG CAPSULE PO SCH (09:12)
[2020-05-07] MEDS: METOPROLOL TARTRATE 25 MG TABLET PO SCH (09:12)
[2020-05-07] MEDS: LEVOTHYROXINE SODIUM 25 MCG TABLET PO SCH (09:15)
[2020-05-07] MEDS: PROSOURCE / PROSTAT (PYXIS) 30 ML UDC PO SCH (09:15)
[2020-05-07 12:00] VITALS: BP 133/97
[2020-05-07 12:10] LABS: BASOPHILS % (AUTO) 0.3 % (0.0-2.0); EOSINOPHILS % (AUTO) 0.8 % (0.0-6.0); HEMATOCRIT 46 % (39-51); HEMOGLOBIN 15.2 g/dL (13.5-17.5); LYMPHOCYTES # (AUTO) 1.4 /CMM (0.8-4.8); LYMPHOCYTES % (AUTO) 11.8 % (20.0-44.0); MEAN CORPUSCULAR HGB CONC 33 g/dl (31.0-36.0); MEAN CORPUSCULAR VOLUME 88 fL (80-96); MONOCYTES # (AUTO) 1.4 /CMM (0.1-1.30); MONOCYTES % (AUTO) 11.8 % (2.0-12.0); NEUTROPHILS # (AUTO) 9.2 /CMM (1.8-8.9); NEUTROPHILS % (AUTO) 75.3 % (43.0-81.0); PLATELET COUNT (AUTO) 258 /CMM (150-450); RED BLOOD CELL COUNT(AUTO) 5.23 MIL/uL (4.5-6.0); WHITE BLOOD COUNT (AUTO) 12.2 K/uL (4.3-11.0)
[2020-05-07 13:52] LABS: CALCIUM, SERUM 8.5 mg/dL (8.5-10.1); CREATININE 0.5 mg/dL (0.6-1.3); MAGNESIUM 2.4 mg/dL (1.8-2.4); PHOSPHORUS 1.9 mg/dL (2.5-4.9); POTASSIUM 4.3 mmol/L (3.5-5.1)
[2020-05-07] MEDS ORDERED: LEVE500T9 PO (14:52)
[2020-05-07] MEDS ORDERED: PHEN100C4 PO (14:52)
[2020-05-07] MEDS ORDERED: NEUTRA PHOS 1 POWD.PACKET PO ONE (15:00)
--- NOTE | 2020-05-07 16:00 | NUR ---
PT DISCHARGED TO [facility] ER. REPORT GIVEN TO RN OVER PHONE. PT NG TUBE REMOVED, IV AND PICC LINE REMOVED. PT ARMBAND REMOVED. PT HAD NO BELONGINGS, ONLY BRACELET ON ARM. PT LEAVES WITH LONDONO IN PLACE. OUTPUT 1000 ML. PT WOUND CARE TX COMPLETED PRIOR TO DC. DC PAPERWORK AND PICTURES PLACED IN CHART. PT VITAL SIGNS 98.7, HR 107, RR 20, 96 O2 SAT, BP 158/70.
== END 2020-05-07 16:00 | DRG 177 ==
LOC: ER 16:14 → ICU 20:27 → TELE1 04-30 08:09 → MEDSG1 05-04 12:42
PROVIDERS: ADMIT Internal Medicine; ATTEND Nurse Practitioner Acute Care
PROC: 02HV33Z Insertion of Infusion Device into Superior Vena Cava, Percutaneous Approach (ICD-10-PCS; principal; 2020-04-29)
DX: U07.1 COVID-19 (principal); E11.10 Type 2 diabetes mellitus with ketoacidosis without coma; N17.0 Acute kidney failure with tubular necrosis; G93.41 Metabolic encephalopathy; E43 Unspecified severe protein-calorie malnutrition; J96.01 Acute respiratory failure with hypoxia; J12.89 Other viral pneumonia; I50.32 Chronic diastolic (congestive) heart failure; J44.0 Chronic obstructive pulmonary disease with (acute) lower respiratory infection; G82.20 Paraplegia, unspecified; J98.11 Atelectasis; L97.429 Non-pressure chronic ulcer of left heel and midfoot with unspecified severity; L97.419 Non-pressure chronic ulcer of right heel and midfoot with unspecified severity; N39.0 Urinary tract infection, site not specified; G40.909 Epilepsy, unspecified, not intractable, without status epilepticus; E88.09 Other disorders of plasma-protein metabolism, not elsewhere classified; I11.0 Hypertensive heart disease with heart failure; E11.40 Type 2 diabetes mellitus with diabetic neuropathy, unspecified; E11.621 Type 2 diabetes mellitus with foot ulcer; Z98.890 Other specified postprocedural states; Z79.01 Long term (current) use of anticoagulants; Z79.4 Long term (current) use of insulin; Z79.899 Other long term (current) drug therapy; D75.1 Secondary polycythemia; Z87.440 Personal history of urinary (tract) infections; Z87.820 Personal history of traumatic brain injury; Z90.49 Acquired absence of other specified parts of digestive tract; Z98.2 Presence of cerebrospinal fluid drainage device; N40.0 Benign prostatic hyperplasia without lower urinary tract symptoms; I70.0 Atherosclerosis of aorta; E03.9 Hypothyroidism, unspecified; I25.10 Atherosclerotic heart disease of native coronary artery without angina pectoris; I69.865 Other paralytic syndrome following other cerebrovascular disease, bilateral; I69.898 Other sequelae of other cerebrovascular disease; M24.562 Contracture, left knee; M24.561 Contracture, right knee; E87.6 Hypokalemia; E78.5 Hyperlipidemia, unspecified; D64.9 Anemia, unspecified; S81.002A Unspecified open wound, left knee, initial encounter; X58.XXXA Exposure to other specified factors, initial encounter; Y92.9 Unspecified place or not applicable; Z22.322 Carrier or suspected carrier of Methicillin resistant Staphylococcus aureus; G93.89 Other specified disorders of brain
CPT/HCPCS: 36415; 36569; 36600; 70450-TC; 71045-TC; 80048-TC; 80053-TC; 80076-TC; 80185-TC; 80202-TC; 81001; 82550-TC; 82728-TC; 82962-TC; 83605-TC; 83615-TC; 83735-TC; 84100-TC; 84484-TC; 85025-TC; 85378-TC; 85730-TC; 86140-TC; 87040-TC; 87081-TC; 87086-TC; 92526; 92611-TC; 95819-TC; A6253; A6403; C1751; C9803; G0378; J0456; J0692; J0696; J1100; J1165; J1644; J1815; J1953; J2185; J3370; J3480; J3490; J7030; J7040; J7042; J7050; J7060; J7120; U0003